=== PATIENT | female | born 1980 | race Caucasian/White ===

== ENCOUNTER → 2017-11-22 | Outpatient (CLI) | payer BC ==
[2017-11-22 09:59] LABS: ALBUMIN 3.7 GM/DL (3.2-5.2); ALBUMIN/GLOBULIN RATIO 1.06 (1.00-1.93); ALKALINE PHOSPHATASE 58 U/L (45-117); ALT/SGPT 19 U/L (12-78); ANION GAP 6 MEQ/L (8-16); AST/SGOT 21 U/L (7-37); BILIRUBIN,TOTAL 0.3 MG/DL (0.2-1.0); BLOOD UREA NITROGEN 12 MG/DL (7-18); CALCIUM LEVEL 8.7 MG/DL (8.5-10.1); CARBON DIOXIDE LEVEL 25 MEQ/L (21-32); CHLORIDE LEVEL 109 MEQ/L (98-107); CREATININE FOR GFR 0.65 MG/DL (0.55-1.02); FREE T4 0.98 NG/DL (0.76-1.46); GLOMERULAR FILTRATION RATE > 60.0 (>60); GLUCOSE, FASTING 89 MG/DL (70-100); POTASSIUM SERUM 4.5 MEQ/L (3.5-5.1); SODIUM LEVEL 140 MEQ/L (136-145); TOTAL PROTEIN 7.2 GM/DL (6.4-8.2)
[2017-11-22 10:11] LABS: ESTIMATED AVERAGE GLUCOSE 117 MG/DL (60-110); HEMOGLOBIN A1c 5.7 %
== END ==
LOC: M LAB 08:25
DX: E66.09 Other obesity due to excess calories (principal)
CPT/HCPCS: 84443

== ENCOUNTER 2018-02-01 09:12 | Emergency (ER) | payer BC ==
[2018-02-01] MEDS: METOCLOPRAMIDE 10 MG TAB PO (09:14)
[2018-02-01] MEDS: KETOROLAC 60 MG/2 ML VIAL (J1885) IM (09:15)
== END 2018-02-01 09:50 | disposition home or self-care (01) ==
LOC: M ED 09:12
DX: G43.909 Migraine, unspecified, not intractable, without status migrainosus (principal); F17.200 Nicotine dependence, unspecified, uncomplicated; Z79.899 Other long term (current) drug therapy; Z87.39 Personal history of other diseases of the musculoskeletal system and connective tissue; Z98.890 Other specified postprocedural states; Z88.1 Allergy status to other antibiotic agents
CPT/HCPCS: J1885

== ENCOUNTER → 2018-04-11 | Outpatient (CLI) | payer BC | LOC: M RAD 11:42 | DX: N60.81 Other benign mammary dysplasias of right breast (principal); N60.82 Other benign mammary dysplasias of left breast | CPT/HCPCS: 77066 ==

== ENCOUNTER → 2018-05-03 | Outpatient (CLI) | payer BC ==
[~2018-05-03] MED LIST: PROHANCE 279.3MG/ML 15ML VIAL (A9576) As Ordered
== END ==
LOC: M RAD 10:24
DX: N60.31 Fibrosclerosis of right breast (principal); N60.32 Fibrosclerosis of left breast; Z80.3 Family history of malignant neoplasm of breast
CPT/HCPCS: A9576

== ENCOUNTER → 2018-12-05 | Outpatient (REF) | payer BC ==
[~2018-12-05] MED LIST changes: +/AUGM875TA OR; +ACET500C OR; +COLA50CA OR; +IBUP800T OR; +KETO10TAB PO; +MYDA1CAP PO; +NEXI20CA OR; +PERC5TAB8 OR; -PROHANCE 279.3MG/ML 15ML VIAL (A9576) As Ordered; +REGL10TA6 PO; +[UNRECOGNIZED DRUG - OTHER]; +dulcolax PR
[2018-12-05 21:28] LABS: CHLAMYDIA DNA AMPLIFICATION NEGATIVE (NEGATIVE); GC DNA AMPLIFICATION NEGATIVE (NEGATIVE)
== END ==
LOC: M LAB REF 17:17
PROVIDERS: ATTEND Family Medicine
DX: N76.0 Acute vaginitis (principal)

== ENCOUNTER 2018-12-21 10:12 | Emergency (ER) | payer BC ==
[~2018-12-21] VITALS: Ht 154.9 cm; Wt 65.9 kg
[2018-12-21 10:12] VITALS: BP 129/89
--- NOTE | 2018-12-21 10:59 | REP ---
Right hand four views : There is no fracture or dislocation. Mineralization and joint spaces are normal. There are no calcifications or foreign bodies. Impression: Negative right hand. No boxer's fracture. Electronically Signed by Riley Gallo MD 12/21/2018 10:50 A
== END 2018-12-21 10:58 | disposition home or self-care (01) ==
LOC: M ED 10:12
DX: S60.221A Contusion of right hand, initial encounter (principal); W22.8XXA Striking against or struck by other objects, initial encounter; Y92.89 Other specified places as the place of occurrence of the external cause; Y93.89 Activity, other specified; Y99.9 Unspecified external cause status; Z79.899 Other long term (current) drug therapy; Z88.1 Allergy status to other antibiotic agents

== ENCOUNTER → 2019-01-08 | Outpatient (CLI) | payer BC ==
[2019-01-08 08:20] LABS: BASO # 0.1 10^3/uL (0.0-0.2); BASO % 0.9 % (0.0-1.0); EOS # 0.2 10^3/uL (0.0-0.50); EOS % 2.9 % (0.0-3.0); HEMATOCRIT 42.2 % (36.0-47.0); HEMOGLOBIN 13.8 g/dl (12.0-15.5); LYMPH # 1.7 10^3/uL (1.5-4.5); LYMPH % 22.6 % (24.0-44.0); MEAN CORPUSCULAR HGB CONC 32.7 g/dl (32.0-36.5); MEAN CORPUSCULAR VOLUME 88.7 fl (80.0-96.0); MONO # 0.7 10^3/uL (0.0-0.8); MONO % 8.8 % (0.0-5.0); NEUTROPHILS % 64.4 % (36.0-66.0); PLATELET COUNT, AUTOMATED 341 10^3/uL (150-450); RED BLOOD COUNT 4.76 10^6/uL (4.00-5.40); WHITE BLOOD COUNT 7.7 10^3/uL (4.0-10.0)
[2019-01-08 08:29] LABS: HEMOGLOBIN A1c 5.6 %
[2019-01-08 09:07] LABS: ALBUMIN 3.6 GM/DL (3.2-5.2); ALT/SGPT 12 U/L (12-78); BILIRUBIN,TOTAL 0.4 MG/DL (0.2-1.0); BLOOD UREA NITROGEN 7 MG/DL (7-18); CALCIUM LEVEL 8.6 MG/DL (8.5-10.1); CARBON DIOXIDE LEVEL 25 MEQ/L (21-32); CHLORIDE LEVEL 109 MEQ/L (98-107); CHOLESTEROL LEVEL 139 MG/DL (<200); CHOLESTEROL RISK RATIO 3.088 (<5); CREATININE FOR GFR 0.56 MG/DL (0.55-1.30); FREE T4 1.07 NG/DL (0.76-1.46); GLOMERULAR FILTRATION RATE > 60.0 (>60); GLUCOSE, FASTING 79 MG/DL (70-100); HDL CHOLESTEROL 45 MG/DL (>40); LDL CHOLESTEROL 60 MG/DL (<100); NON-HDL-C 94 MG/DL; POTASSIUM SERUM 4.2 MEQ/L (3.5-5.1); SODIUM LEVEL 141 MEQ/L (136-145); TOTAL PROTEIN 6.9 GM/DL (6.4-8.2); TRIGLYCERIDES LEVEL 171 MG/DL (<150)
== END ==
LOC: M LAB 07:26
PROVIDERS: ATTEND Family Medicine
DX: Z13.29 Encounter for screening for other suspected endocrine disorder (principal); Z13.220 Encounter for screening for lipoid disorders; Z13.0 Encounter for screening for diseases of the blood and blood-forming organs and certain disorders involving the immune mechanism

== ENCOUNTER 2019-02-21 19:13 | Emergency (ER) | payer BC ==
[~2019-02-21] VITALS: Ht 157.5 cm; Wt 69.1 kg
--- NOTE | 2019-02-21 20:43 | REPVR ---
EXAM: CT Head Without Contrast EXAM DATE/TIME: 02/21/2019 7:39 PM CLINICAL HISTORY: 38 years old, female; Signs and symptoms; Weakness, facial; Additional info: Neuro symptoms TECHNIQUE: Imaging protocol: Axial computed tomography images of the head/brain without contrast. Radiation optimization: All CT scans at this facility use at least one of these dose optimization techniques: automated exposure control; mA and/or kV adjustment per patient size (includes targeted exams where dose is matched to clinical indication); or iterative reconstruction. COMPARISON: Thyroid, ST head+neck US 09/21/2015 1:25 PM FINDINGS: Brain: Normal. No hemorrhage. No significant white matter disease. No edema. Ventricles: Normal. No ventriculomegaly. Bones/joints: Unremarkable. No acute fracture. Sinuses: Visualized sinuses are unremarkable. No acute sinusitis. Mastoid air cells: Visualized mastoid air cells are unremarkable. No mastoid effusion. Soft tissues: Unremarkable. IMPRESSION: No acute intracranial abnormality. Electronically signed by: Marva Mcdaniel On 02/21/2019 20:43:45 PM
[2019-02-21] MEDS ORDERED: traMADol 50 MG TAB PO ONE (21:45)
[2019-02-21 21:54] VITALS: BP 122/77
== END 2019-02-21 21:55 | disposition home or self-care (01) ==
LOC: M ED 19:13
DX: G43.909 Migraine, unspecified, not intractable, without status migrainosus (principal); F90.9 Attention-deficit hyperactivity disorder, unspecified type; Z79.899 Other long term (current) drug therapy; Z88.1 Allergy status to other antibiotic agents

== ENCOUNTER → 2019-05-15 | Outpatient (CLI) | payer BC ==
[~2019-05-15] MED LIST changes: +CLON0.5T8 PO; +SUMA50TA2 PO; +SUMA6KIT SC
== END ==
LOC: M SMT 14:01
PROVIDERS: ATTEND Internal Medicine Gastroenterology
DX: K58.0 Irritable bowel syndrome with diarrhea (principal)

== ENCOUNTER 2019-05-16 10:51 | Day surgery (SDC) | payer BC ==
[~2019-05-16] VITALS: Ht 154.9 cm; Wt 63.7 kg
[~2019-05-16 10:51] MED LIST changes: +NS 1,000 ML IV ONE
[2019-05-16] MEDS ORDERED: PROPOFOL 200 MG/20 ML VIAL As Ordered ONE (11:45)
[2019-05-16] MEDS ORDERED: LIDOCAINE 2% INJ 100 MG/5 ML SDV (FOR ANES.) As Ordered ONE (11:45)
--- NOTE | 2019-05-16 11:57 | ROOR ---
Patient Name: Dana Ellington Procedure Date: 05/16/2019 11:36 AM Date of : 1980 Age: 38 Room: [facility] Gender: Female Note Status: Finalized Procedure: Upper GI endoscopy Indications: Surveillance procedure, Surveillance for malignancy due to personal history of Diallo's esophagus, Diarrhea Providers: Ubaldo COBIAN MD Referring MD: Laura GUTHRIE DO Requesting Provider: Medicines: Monitored Anesthesia Care Complications: No immediate complications. Procedure: Pre-Anesthesia Assessment: - The heart rate, respiratory rate, oxygen saturations, blood pressure, adequacy of pulmonary ventilation, and response to care were monitored throughout the procedure. The Endoscope was introduced through the mouth, and advanced to the second part of duodenum. The upper GI endoscopy was accomplished without difficulty. The patient tolerated the procedure well. Findings: The Z-line was variable and was found 35 cm from the incisors. This was biopsied with a cold forceps for histology. The examined esophagus was normal. Small Hiatal Hernia. The entire examined stomach was normal. The examined duodenum was normal. Biopsies for histology were taken with a cold forceps for evaluation of celiac disease. Impression: - Normal esophagus. Z-line variable, 35 cm from the incisors. Biopsied. - Normal stomach with a small insignificant Hiatal Hernia. - Normal examined duodenum. Biopsied. Recommendation: - Telephone endoscopist for pathology results in 2 weeks. Ubaldo Cobian MD Ubaldo COBIAN MD 05/16/2019 11:57:19 AM Electronically signed by Ubaldo COBIAN MD Number of Addenda: 0 Note Initiated On: 05/16/2019 11:36 AM Estimated Blood Loss: Estimated blood loss: none.
--- NOTE | 2019-05-16 12:13 | ROOR ---
Patient Name: Dana Ellington Procedure Date: 05/16/2019 11:37 AM Date of : 1980 Age: 38 Room: [facility] Gender: Female Note Status: Finalized Procedure: Colonoscopy Indications: Generalized abdominal pain, Irritable bowel syndrome with diarrhea, Mixed irritable bowel syndrome, Diarrhea Providers: Ubaldo COBIAN MD Referring MD: Laura GUTHRIE DO Requesting Provider: Medicines: Monitored Anesthesia Care Complications: No immediate complications. Procedure: Pre-Anesthesia Assessment: - The heart rate, respiratory rate, oxygen saturations, blood pressure, adequacy of pulmonary ventilation, and response to care were monitored throughout the procedure. The Colonoscope was introduced through the anus and advanced to 10 cm into the ileum. The colonoscopy was performed without difficulty. The patient tolerated the procedure well. The quality of the bowel preparation was good. Findings: The perianal and digital rectal examinations were normal. A 4 mm polyp was found in the sigmoid colon. The polyp was sessile. The polyp was removed with a cold snare. Resection and retrieval were complete. The exam was otherwise normal throughout the examined colon. The terminal ileum appeared normal. Small Internal Hemorrhoids. Impression: - One 4 mm polyp in the sigmoid colon, removed with a cold snare. Resected and retrieved. - The colon is otherwise normal. - The examined portion of the ileum was normal. - Small Internal Hemorrhoids. Recommendation: - Continue present medications. - Await pathology results. - Telephone endoscopist for pathology results in 2 weeks. - If the pathology report reveals adenomatous tissue, then repeat the colonoscopy for surveillance in 5 years. Ubaldo Cobian MD Ubaldo COBIAN MD 05/16/2019 12:12:55 PM Electronically signed by Ubaldo COBIAN MD Number of Addenda: 0 Note Initiated On: 05/16/2019 11:37 AM Estimated Blood Loss: Estimated blood loss: none.
[2019-05-16 12:30] VITALS: BP 111/75
== END 2019-05-16 12:38 | disposition home or self-care (01) ==
LOC: M OPP 10:51
PROVIDERS: ATTEND Internal Medicine Gastroenterology
DX: D12.5 Benign neoplasm of sigmoid colon (principal); R10.84 Generalized abdominal pain; K58.0 Irritable bowel syndrome with diarrhea; K58.2 Mixed irritable bowel syndrome; R19.7 Diarrhea, unspecified; K22.8 Other specified diseases of esophagus; K22.70 Barrett's esophagus without dysplasia; K44.9 Diaphragmatic hernia without obstruction or gangrene; Z79.899 Other long term (current) drug therapy; Z88.0 Allergy status to penicillin; Z91.040 Latex allergy status

== ENCOUNTER → 2019-08-11 | Outpatient (CLI) | payer BC ==
[~2019-08-11] MED LIST changes: -NS 1,000 ML IV ONE
--- NOTE | 2019-08-11 13:23 | REP ---
Chest x-ray: Two views. History: Shortness of breath and cough . Comparison study: October 07, 2011 . Findings: The lungs are well inflated and free of infiltrate. The pleural angles are sharp. The heart size is normal. Pulmonary vasculature is not increased. No significant bony abnormality is seen. There are clips in the right upper quadrant of the abdomen. Nipple jewelry is noted. Impression: Negative chest x-ray. Electronically Signed by Elroy Chavarria MD 08/11/2019 01:14 P
== END ==
LOC: M RAD 13:01
PROVIDERS: ATTEND Emergency Medicine
DX: R06.02 Shortness of breath (principal)

== ENCOUNTER → 2019-11-12 | Outpatient (CLI) | payer BC ==
[~2019-11-12] MED LIST changes: +CLON0.5T2 PO; -CLON0.5T8 PO
[2019-11-12 09:14] LABS: ALBUMIN 3.7 GM/DL (3.2-5.2); ALT/SGPT 15 U/L (12-78); BILIRUBIN,TOTAL 0.5 MG/DL (0.2-1.0); BLOOD UREA NITROGEN 12 MG/DL (7-18); CALCIUM LEVEL 8.7 MG/DL (8.5-10.1); CARBON DIOXIDE LEVEL 26 MEQ/L (21-32); CHLORIDE LEVEL 107 MEQ/L (98-107); CREATININE FOR GFR 0.64 MG/DL (0.55-1.30); GLOMERULAR FILTRATION RATE > 60.0 (>60); GLUCOSE, FASTING 78 MG/DL (70-100); POTASSIUM SERUM 4.3 MEQ/L (3.5-5.1); SODIUM LEVEL 140 MEQ/L (136-145)
[2019-11-12 10:41] LABS: HEMOGLOBIN A1c 5.4 %
== END ==
LOC: M LAB 07:43
PROVIDERS: ATTEND Family Medicine
DX: R73.9 Hyperglycemia, unspecified (principal)

== ENCOUNTER → 2020-02-03 | Outpatient (CLI) | payer BC ==
[2020-02-03 11:01] LABS: HEMOGLOBIN A1c 5.4 %
[2020-02-03 11:11] LABS: ALT/SGPT 15 U/L (12-78); BILIRUBIN,TOTAL 0.7 MG/DL (0.2-1.0); BLOOD UREA NITROGEN 9 MG/DL (7-18); CALCIUM LEVEL 9.2 MG/DL (8.5-10.1); CARBON DIOXIDE LEVEL 26 MEQ/L (21-32); CHLORIDE LEVEL 106 MEQ/L (98-107); CREATININE FOR GFR 0.65 MG/DL (0.55-1.30); GLOMERULAR FILTRATION RATE > 60.0 (>60); GLUCOSE, FASTING 83 MG/DL (70-100); POTASSIUM SERUM 4.6 MEQ/L (3.5-5.1); SODIUM LEVEL 136 MEQ/L (136-145); TOTAL PROTEIN 7.5 GM/DL (6.4-8.2)
== END ==
LOC: M LAB 10:05
PROVIDERS: ATTEND Family Medicine
DX: R73.9 Hyperglycemia, unspecified (principal)

== ENCOUNTER → 2020-02-18 | Outpatient (REF) | payer BC | LOC: M LAB REF 16:39 | PROVIDERS: ATTEND Physician Assistant | DX: N39.0 Urinary tract infection, site not specified (principal) ==

== ENCOUNTER → 2020-04-02 | Outpatient (CLI) | payer BC | LOC: M LABSMTC 12:18 | PROVIDERS: ATTEND Family Medicine | DX: Z03.818 Encounter for observation for suspected exposure to other biological agents ruled out (principal); Z11.59 Encounter for screening for other viral diseases | CPT/HCPCS: 87486; 87581; 87633; 87798; C9803 ==

== ENCOUNTER → 2020-07-22 | Outpatient (CLI) | payer BC ==
[2020-07-22 10:13] LABS: BASO # 0.1 10^3/uL (0.0-0.2); EOS # 0.2 10^3/uL (0.0-0.5); EOS % 2.6 % (0.0-3.0); HEMATOCRIT 43.7 % (36.0-47.0); HEMOGLOBIN 14.2 g/dl (12.0-15.5); LYMPH # 1.5 10^3/uL (1.5-5.0); LYMPH % 25.5 % (24.0-44.0); MEAN CORPUSCULAR HGB CONC 32.5 g/dl (32.0-36.5); MEAN CORPUSCULAR VOLUME 92.4 fl (80.0-96.0); MONO # 0.6 10^3/uL (0.0-0.8); MONO % 10.1 % (0.0-5.0); NEUTROPHILS # 3.5 10^3/uL (1.5-8.5); NEUTROPHILS % 60.5 % (36.0-66.0); PLATELET COUNT, AUTOMATED 312 10^3/uL (150-450); RED BLOOD COUNT 4.73 10^6/uL (4.00-5.40); WHITE BLOOD COUNT 5.8 10^3/uL (4.0-10.0)
[2020-07-22 10:44] LABS: ALBUMIN 3.9 GM/DL (3.2-5.2); ALT/SGPT 24 U/L (12-78); BILIRUBIN,TOTAL 0.4 MG/DL (0.2-1.0); BLOOD UREA NITROGEN 18 MG/DL (7-18); CARBON DIOXIDE LEVEL 25 MEQ/L (21-32); CHLORIDE LEVEL 107 MEQ/L (98-107); CREATININE FOR GFR 0.77 MG/DL (0.55-1.30); FERRITIN 120 NG/ML (8-252); FREE T4 1.21 NG/DL (0.76-1.46); GLOMERULAR FILTRATION RATE > 60.0 (>60); GLUCOSE, FASTING 104 MG/DL (70-100); IRON (FE) 101 UG/DL (50-170); MAGNESIUM LEVEL 2.3 MG/DL (1.8-2.4); PERCENT SATURATION 24.3 % (13.2-45.0); POTASSIUM SERUM 4.3 MEQ/L (3.5-5.1); SODIUM LEVEL 138 MEQ/L (136-145); TOTAL IRON BINDING CAPACITY 416 UG/DL (250-450); TOTAL PROTEIN 7.9 GM/DL (6.4-8.2)
[2020-07-22 10:45] LABS: TOTAL 25(OH) VITAMIN D 27.6 NG/ML (30.0-100.0); VITAMIN B12 LEVEL 404 PG/ML
[2020-07-22 10:46] LABS: FOLATE 14.9 NG/ML
== END ==
LOC: M LAB 09:28
PROVIDERS: ATTEND Physician Assistant
DX: K58.0 Irritable bowel syndrome with diarrhea (principal); Z13.29 Encounter for screening for other suspected endocrine disorder

== ENCOUNTER → 2020-07-30 | Outpatient (REF) | LOC: M EMP 07:50 | PROVIDERS: ATTEND Family Medicine | DX: Z00.00 Encounter for general adult medical examination without abnormal findings (principal) ==

== ENCOUNTER → 2020-08-14 | Outpatient (CLI) | payer BC | LOC: M LABSMTC 08:19 | PROVIDERS: ATTEND Pediatrics | DX: Z20.828 Contact with and (suspected) exposure to other viral communicable diseases (principal) ==

== ENCOUNTER → 2020-10-18 | Outpatient (CLI) | payer BC ==
--- NOTE | 2020-10-18 16:54 | REPMRS ---
Patient History The patient states she had a clinical breast exam in 07/2020 Family history of breast cancer at age 40 in maternal grandmother, endometrial cancer at age 28 in mother, ovarian cancer at age 44 in mother, breast cancer at age 44 in sister. 3D TOMOSYNTHESIS WAS PERFORMED. Jackelyna breast density b. Digital Woman Screen Mammo: October 18, 2020 - Exam #: [id number] Bilateral CC and MLO view(s) were taken. Technologist: Sindy Berman, Technologist Prior study comparison: April 11, 2018, digital mammo diagnostic bilateral, performed at [facility]. October 01, 2013, digital mammo diagnostic bilateral, performed at [facility]. FINDINGS: There are scattered fibroglandular densities. There has been no change in the appearance of the mammogram from the prior studies. There is a mild amount of residual fibroglandular tissue which is fairly symmetric. There is no interval development of dominant mass, architectural distortion, or clustered microcalcification suggestive of malignancy. Assessment: BI-RADS/ACR category 1 mammogram. Negative Mammogram. Recommendation Routine screening mammogram in 1 year (for women over age 40). This mammogram was interpreted with the aid of an FDA-approved computer-aided dectection system. THE LIFETIME RISK OF BREAST CANCER IS 34.8%, THEREFORE SUPPLEMENTAL SCREENING MRI OF THE BREASTS IS RECOMMENDED IN 6 MONTHS. Electronically Signed By: Riley Bailey MD 10/18/20 [id number]
== END ==
LOC: M WHC 16:12
PROVIDERS: ATTEND Obstetrics & Gynecology
DX: Z12.31 Encounter for screening mammogram for malignant neoplasm of breast (principal)

== ENCOUNTER → 2020-11-02 | Outpatient (REF) | payer SELFPAY ==
[~2020-11-02] MED LIST changes: +CHAN1PAK13; +CLON1TAB8; +DULO1CAP6; +ESOM40CA35; +MYDA1CAP; +SUCR1ORA2
== END ==
LOC: EDSTATUS 14:05 → M LABSMTC 14:24
PROVIDERS: ATTEND Family Medicine
DX: Z20.822 Contact with and (suspected) exposure to COVID-19 (principal)

== ENCOUNTER 2020-11-25 03:02 | Emergency (ER) | payer BC, SELFPAY ==
[~2020-11-25] VITALS: Ht 154.9 cm; Wt 74.4 kg
[~2020-11-25 03:02] MED LIST changes: -CHAN1PAK13; -CLON1TAB8; -DULO1CAP6; -ESOM40CA35; -MYDA1CAP; -SUCR1ORA2
[2020-11-25 03:03] VITALS: BP 135/97
--- OUTSIDE RECORDS SUMMARY | 2020-11-25 03:11 | CCD | Continuity of Care Document ---
Author Author Dana GOLDBERG Organization [place] [address] Phone [phone] Care Team Providers Care Cash Clerk Name Role Phone Laura Acevedo D.O. AUTM [phone] Mendel Pearson M.D. AUTM [phone] Ubaldo Kay M.D, Facs FACPh AUTM Problems Active Problems Provider Date Attention deficit hyperactivity disorder, predominantl y inattentive type Laura Acevedo D.O. Onset: 09/21/2015 Generalized anxiety disorder Laura Acevedo D.O. Onse t: 09/21/2015 Tachycardia Laura Acevedo D.O. Onset: 2014 Pure hypercholesterolemia Laura Acevedo D.O. Onset: 09/21/2015 Non-toxic nodular goiter Laura Acevedo D.O. Onset: 1 11/21/2014 Tobacco user Laura Acevedo D.O. Onset: 2014 Palpitations Laura Acevedo D.O. Onset: 2014 Insomnia JOSELYN Carpio Onset: 11/20/2016 Migraine without aura, not refractory JOSELYN Carpio O nset: 05/21/2017 Chronic migraine without aura JOSELYN Delgado Onset: Irritable bowel syndrome with diarrhea JOSELYN Delgado O nset: 07/22/2020 Gastro-esophageal reflux disease with esophagitis JOSELYN Guillermo Onset: 07/22/2020 Mild recurrent major depression JOSELYN Delgado Onset: 0 05/06/2020 Social History Type Date Description Comments Sex Unknown Tobacco Use Start: Unknown Light tobacco smoker (10 or fewe r cigarettes/day) 5/day Tobacco Use Start: Unknown End: Unknown Quit only while Smoking Status Reviewed: 12/18/19 Quit only while pr egnant ETOH Use Denies alcohol use Tobacco Use Start: Unknown Light tobacco smoker (10 or fewe r cigarettes/day) 5/day Recreational Drug Use Denies Drug Use Sun Exposure Uses sunscreen Seat Belt/Car Seat Always uses seat belt Allergies, Adverse Reactions, Alerts Active Allergies Reaction Severity Comments Date Erythromycin Nausea and Vomiting, Urticaria 09/21/2015 Medications Active Medications SIG Qnty Indications Ordering Provide r Date Mydayis 37.5mg Caps ER 24HR 1 by mouth every day. Code B 90caps F90.0 Sofy Bess.O. Chantix Continuing Month Horacio 1mg T ablets 1 tab by mouth twice daily. 56tabs Sofy Bess.O. 11/09/2020 Carafate 1GM/10ML Suspension 10 milliliters by mouth every 12 hours 840ml Sofy Barry.O. 11/09/2020 GI Cocktail (Maalox, Dontatol, Lidocaine) 1:1:1 ratio of medication. Take 15 mL by mouth twice a day as needed 120mL Sofy Corea.O. 11/09/2020 Levocetirizine Dihydrochloride 5mg Tablets take one tablet by mouth at bedtime 90tabs J30.9 Sofy Bess.O. 08/16/2020 Flonase Allergy Relief 50mcg/Act Suspension two sprays in each nostril once daily 18.200ml J30.9 Sofy Bess.O. 08/16/[address] 1 by mouth twice a day for a month and then return to once a day an empty stomach 120caps K21.0 Sofy Bess.O. 07/22/2020 Trazodone HCL 100mg Tablets take 1 tablets by mouth once daily at bedtime 90tabs F33.0 Marissa CoreaORyanne 07/22/2020 Zofran 4mg Tablets 1-2 tablets by mouth every 6 hours as needed for nausea 45tabs K21.0 Marissa OscarORyanne 05/28/2020 Ajovy 225mg/1.5ML Solution Auto-In ject one injector once a month in subcutaneous tissue 4.5ml G43.009 Marissa BessORyanne 04/20/[address] Part 1 by mouth every day 90caps F41.1 Marissa BessORyanne 03/01 Klonopin 1mg Tablets 1 tablet by mouth twice a day as needed 60tabs F51.04 Marissa BessORyanne 07/07/2019 Sumatriptan Succinate Refill 6mg/0.5ML Solution Cartridge administer half a milliliters sq 2 times per day at least 1 hour between doses as needed for migraine headache 3ml G43.009 Marissa BessORyanne 01/30/2018 Sumatriptan Succinate 50mg Tablets take one tablet at the onset of symptoms, repeat 2 hours if not improved. mdd 2. patient gets 6 headaches/month. 12tabs G43.009 Marissa WalkerORyanne 05/21/2017 History Medications Diflucan 200mg Tablets take one tablet after finishing antibiotics and two days later if symptoms persist 2tabs Marissa BessORyanne 08/19/2020 - 11/09/2020 Bactrim DS 800-160mg Tablets take one tablet by mouth every 12 hours for ten days 20tabs A49.02 Marissa BessO. 08/16/2020 - 11/09/2020 Mupirocin 2% Ointment apply ointment around left arm and lower back twice daily for 10 days. 22gm A49. 02 Marissa BessORyanne 08/16/2020 - 11/09/2020 Mydayis 25mg Caps ER 24HR one tablet by mouth daily istop#: [id number] Code B 90caps F90.0 Marissa KcORyanne 07/22/2020 - 11/09/2020 Carafate 1GM/10ML Suspension 10 milliliters by mouth every 8 hours 840ml K21.0 Marissa OscarO. 05/28/2020 - 07/22/[address] 1 by mouth every 12 hours for one month and then once a day on an empty stomach 180caps K21.0 Sofy Bess.O. 05/28/2020 - 07/22/2020 Medications Administered in Office Medication SIG Qnty Indications Ordering Provider Date Injection Promethazine Hci To 50 MG Injection JOSELYN Atwood 2017 Injection Ketorolac Tromethamine Per 15 MG (Toradol) Injection JOSELYN Toth 01/30/2018 Therapeutic, Prophylactic Or Diagnostic Injection Subq/Im Injection JOSELYN Toth 01/30/2018 Immunizations Description No Information Available Vital Signs Date Vital Result Comment 11/09/2020 10:55am BP Systolic 124 mmHg BP Diastolic 90 mmHg Height 62.25 inches 5'2.25" Weight 164.00 lb BMI (Body Mass Index) 29.8 kg/m2 Heart Rate 94 /min Respiratory Rate 20 /min Body Temperature 97.3 F O2 % BldC Oximetry 99 % Molino Body Weight 110 lb 08/16/2020 8:55am BP Systolic 118 mmHg BP Diastolic 68 mmHg Height 62.25 inches 5'2.25" Weight 152.25 lb BMI (Body Mass Index) 27.6 kg/m2 Heart Rate 113 /min Respiratory Rate 18 /min Body Temperature 98.4 F O2 % BldC Oximetry 99 % Molino Body Weight 110 lb Results Test Acquired Date Facility Test Result H/L Range Note CBC With Differential 07/22/[address] [address] [phone] White Blood Count 5.8 10 Normal 4.0-10.0 Red Blood Count 4.73 10 Normal 4.00-5.40 Hemoglobin 14.2 g/dL Normal 12.0-15.5 Hematocrit 43.7 % Normal 36.0-47.0 Mean Corpuscular Volume 92.4 fl Normal 80.0-96.0 Mean Corpuscular Hemoglobin 30.0 pg Normal 27.0-33.0 Mean Corpuscular HGB Conc 32.5 g/dL Normal 32.0-36.5 Red Cell Distribution Width 12.4 % Normal 11.5-14.5 Platelet Count, Automated 312 10 Normal 150-450 Neutrophils % 60.5 % Normal 36.0-66.0 Lymph % 25.5 % Normal 24.0-44.0 Chase % 10.1 % High 0.0-5.0 Eos % 2.6 % Normal 0.0-3.0 Baso % 1.0 % Normal 0.0-1.0 Immature Granulocyte % 0.3 % Normal 0-3.0 Nucleated Red Blood Cell % 0.0 % Normal 0-0 Neutrophils # 3.5 10 Normal 1.5-8.5 Lymph # 1.5 10 Normal 1.5-5.0 Chase # 0.6 10 Normal 0.0-0.8 Eos # 0.2 10 Normal 0.0-0.5 Baso # 0.1 10 Normal 0.0-0.2 Comprehensive Metabolic Profil 07/22/[address] [address] [phone] Glucose, Fasting 104 mg/dL High 70-100 Blood Urea Nitrogen 18 mg/dL Normal 7-18 Creatinine For GFR 0.77 mg/dL Normal 0.55-1.30 Glomerular Filtration Rate > 60.0 Normal >60 1 Sodium Level 138 mEq/L Normal 136-145 Potassium Serum 4.3 mEq/L Normal 3.5-5.1 Chloride Level 107 mEq/L Normal 98-107 Carbon Dioxide Level 25 mEq/L Normal 21-32 Anion Gap 6 mEq/L Low 8-16 Calcium Level 9.0 mg/dL Normal 8.5-10.1 Ast/Sgot 9 U/L Normal 7-37 Alt/SGPT 24 U/L Normal 12-78 Alkaline Phosphatase 56 U/L Normal 45-117 Bilirubin,Total 0.4 mg/dL Normal 0.2-1.0 Total Protein 7.9 GM/DL Normal 6.4-8.2 Albumin 3.9 GM/DL Normal 3.2-5.2 Albumin/Globulin Ratio 1.0 Low 1.2-2.2 Laboratory test finding 07/22/[address] [address] [phone] Ferritin 120 NG/ML Normal 8-252 Total Iron Binding Capacit 07/22/2020 [facility] ical center [address] [place] [address] [phone] Iron (Fe) 101 g/dL Normal 50-170 Total Iron Binding Capacity 416 g/dL Normal 250-450 Percent Saturation 24.3 % Normal 13.2-45.0 Vitamin B12 & Folate 07/22/2020 [facility] enter [address] [place] [address] [phone] Vitamin B12 Level 404 pg/mL Normal 2 Folate 14.9 NG/ML Normal 3 Laboratory test finding 07/22/[address] [address] [phone] Magnesium Level 2.3 mg/dL Normal 1.8-2.4 FT4&TSH Panel 07/22/2020 [facility] ce nter [address] [place] [address] [phone] Thyroid Stimulating Hormone 2.310 uIU/ML Normal 0. 358-3.740 Free T4 1.21 ng/dL Normal 0.76-1.46 Laboratory test finding 07/22/[address] [address] [phone] Total 25(Oh) Vitamin D 27.6 NG/ML Low 30.0-100. 0 1 Units are mL/min/1.73 m2 Chronic Kidney Disease Staging per NKF: Stage I & II GFR >=60 Normal to Mildly Decreased Stage III GFR 30-59 Moderately Decreased Stage IV GFR 15-29 Severely Decreased Stage V GFR <15 Very Little GFR Left ESRD GFR <15 on ARTIFICIAL FLY TIER 2 VITAMIN B12 NORMAL RANGE NORMAL 247 - 911 PG/ML INDETERMINATE 211 - 246 PG/ML DEFICIENT LESS THAN 211 PG/ML 3 FOLATE NORMAL RANGE NORMAL GREATER THAN 5.4 NG/ML INDETERMINATE 3.4-5.4 NG/ML DEFICIENT LESS THAN 3.4 NG/ML Procedures Date Code Description Status 07/27/2020 95472 Omt 7-8 Body Regions Completed Medical Devices Description No Information Available Encounters Type Date Location Provider Dx Diagnosis Office Visit 11/09/2020 10:40a [facility] JOSELYN Delgado F90.0 Attn-defct hyperactivity dis order, predom inattentive type K21.00 Gastro-esophageal reflux dis with esophagitis, without bleed Office Visit 08/16/2020 8:45a [facility] JOSELYN Delgado A49.02 Methicillin resis staph infe ction, [facility] J30.9 Allergic rhinitis, unspecifi ed Office Visit 07/27/2020 2:40p [facility] Laura Acevedo D.O. M54.5 Low back pain M99.00 Segmental and somatic dysfun ction of head region M99.01 Segmental and somatic dysfun ction of cervical region M99.02 Segmental and somatic dysfun ction of thoracic region M99.03 Segmental and somatic dysfun ction of lumbar region M99.06 Segmental and somatic dysfun ction of lower extremity M99.05 Segmental and somatic dysfun ction of pelvic region M99.04 Segmental and somatic dysfun ction of sacral region M54.6 Pain in thoracic spine M25.552 Pain in left hip M25.551 Pain in right hip M54.2 Cervicalgia Office Visit 07/22/2020 8:30a [facility] JOSELYN Delgado F33.0 Major depressive disorder, r ecurrent, mild F90.0 Attn-defct hyperactivity dis order, predom inattentive type K21.0 Gastro-esophageal reflux dis ease with esophagitis K58.0 Irritable bowel syndrome wit h diarrhea G43.709 Chronic migraine w/o aura, n ot intractable, w/o stat migr G47.00 Insomnia, unspecified Office Visit 05/28/2020 11:30a [facility] JOSELYN Delgado K21.0 Gastro-esophageal reflux dis ease with esophagitis Assessments Date Code Description Provider 11/09/2020 F90.0 Attention-deficit hy peractivity disorder, predominantly inattentive type JOSELYN Delgado 11/09/2020 K21.00 Gastro-esophageal re flux disease with esophagitis, without bleeding JOSELYN Delgado 08/16/2020 A49.02 Methicillin resistan t Staphylococcus aureus infection, unspecified site JOSELYN Delgado 08/16/2020 J30.9 Allergic rhinitis, unspecified M JOSELYN Odom 07/27/2020 M54.5 Low back pain Laura Malcolm-Leon rber, D.O. 07/27/2020 M99.00 Segmental and somatic dysfunctio n of head region Laura Gold-Olegario, D.O. 07/27/2020 M99.01 Segmental and somatic dysfunctio n of cervical region Laura Gold-Olegario, D.O. 07/27/2020 M99.02 Segmental and somatic dysfunctio n of thoracic region Laura Gold-Olegario, D.O. 07/27/2020 M99.03 Segmental and somatic dysfunctio n of lumbar region Laura Gold-Olegario, D.O. 07/27/2020 M99.06 Segmental and somatic dysfunctio n of lower extremity Laura Gold-Olegario, D.O. 07/27/2020 M99.05 Segmental and somatic dysfunctio n of pelvic region Laura Gold-Olegario, D.O. 07/27/2020 M99.04 Segmental and somatic dysfunctio n of sacral region Laura Gold-Olegario, D.O. 07/27/2020 M54.6 Pain in thoracic spine Laura Steffen eano-Olegario, D.O. 07/27/2020 M25.552 Pain in left hip Laura Gold-S urber, D.O. 07/27/2020 M25.551 Pain in right hip Laura Gold- Olegario, D.O. 07/27/2020 M54.2 Cervicalgia Laura Malcolm-Leon rber, D.O. 07/22/2020 F33.0 Major depressive disorder, recur rent, mild JOSELYN Delgado 07/22/2020 F90.0 Attention-deficit hy peractivity disorder, predominantly inattentive type JOSELYN Delgado 07/22/2020 K21.0 Gastro-esophageal reflux disease with esophagitis JOSELYN Delgado 07/22/2020 K58.0 Irritable bowel syndrome with di arrhea JOSELYN Delgado 07/22/2020 G43.709 Chronic migraine wit hout aura, not intractable, without status migrainosus JOSELYN Delgado 07/22/2020 G47.00 Insomnia, unspecified JOSELYN Guillermo 05/28/2020 K21.0 Gastro-esophageal reflux disease with esophagitis JOSELYN Delgado Plan of Treatment Future Appointment(s):* 12/13/2020 3:40 pm - JOSELYN Delgado at [facility] 11/09/2020 - JOSELYN Delgado* F90.0 Attention-deficit hyperactivity disorder, predominantly inattentive type* New Medication:* Mydayis 37.5 mg - 1 by mouth every day. Code B * Comments:* We will increase your Mydayis to 37.5 mg to see if this helps with your symptoms. * K21.00 Gastro-esophageal reflux disease with esophagitis, without bleeding* Comments:* Use GI cocktail sparingly. Start Nexium 40 mg twice a day and Carafate for one month and then continue with Nexium once a day. Functional Status Description No Information Available Mental Status Description No Information Available Referrals Refer to Reason for Referral Status Appt Date Ubaldo Kay M.D Facs, FACPh, Rpvi Bilateral Varico se and spider veins with associated LE pain. Please evaluate and treat. thank you [facility] [address] [place] [id number] [phone]
--- OUTSIDE RECORDS SUMMARY | 2020-11-25 03:11 | CCD | Continuity of Care Document ---
Author Author Dana GOLDBERG Organization [place] [address] Phone [phone] Care Team Providers Care Corrugated Box Machine Operator Name Role Phone Laura Acevedo D.O. AUTM [phone] Mendel Pearson M.D. AUTM [phone] Ubaldo Kay M.D, Facs FACPh AUTM Problems [...] 12 hours for ten days 20tabs A49.02 Marsisa BessO. 08/16/2020 - 11/09/2020 Mupirocin 2% Ointment apply ointment around left arm and lower back twice daily for 10 days. 22gm A49. 02 Marissa BessORyanne 08/16/2020 - 11/09/2020 Mydayis 25mg Caps ER 24HR one tablet by mouth daily istop#: [id number] Code B 90caps F90.0 Marissa KcORyanne 07/22/2020 [...] F O2 % BldC Oximetry 99 % [place] Body Weight 110 lb 08/16/2020 8:55am BP Systolic 118 mmHg BP Diastolic 68 mmHg Height 62.25 inches 5'2.25" Weight 152.25 lb BMI (Body Mass Index) 27.6 kg/m2 Heart Rate 113 /min Respiratory Rate 18 /min Body Temperature 98.4 F O2 % BldC Oximetry 99 % [place] Body Weight 110 lb Results Test Acquired Date Facility Test Result H/L Range Note CBC With Differential 07/22/[address] [address] [phone] White Blood Count 5.8 10 Normal 4.0-10.0 [...] 36.0-66.0 Lymph % 25.5 % Normal 24.0-44.0 [place] % 10.1 % High 0.0-5.0 Eos % 2.6 % Normal 0.0-3.0 Baso % 1.0 % Normal 0.0-1.0 Immature Granulocyte % 0.3 % Normal 0-3.0 Nucleated Red Blood Cell % 0.0 % Normal 0-0 Neutrophils # 3.5 10 Normal 1.5-8.5 Lymph # 1.5 10 Normal 1.5-5.0 [place] # 0.6 10 Normal 0.0-0.8 Eos # 0.2 10 Normal 0.0-0.5 Baso # 0.1 10 Normal 0.0-0.2 Comprehensive Metabolic Profil 07/22/[address] [address] [phone] Glucose, Fasting 104 mg/dL High 70-100 Blood [...] 1.0 Low 1.2-2.2 Laboratory test finding 07/22/[address] [address] [phone] Ferritin 120 NG/ML Normal 8-252 Total Iron Binding Capacit 07/22/2020 [facility] [address] [place] [address] [phone] Iron (Fe) 101 g/dL Normal 50-170 Total Iron Binding Capacity 416 g/dL Normal 250-450 Percent Saturation 24.3 % Normal 13.2-45.0 Vitamin B12 & Folate 07/22/2020 [facility] enter [address] [place] [address] [phone] Vitamin B12 Level 404 pg/mL Normal 2 Folate 14.9 NG/ML Normal 3 Laboratory test finding 07/22/[address] [address] [phone] Magnesium Level 2.3 mg/dL Normal 1.8-2.4 FT4&TSH Panel 07/22/2020 [facility] ce nter [address] [place] [address] [phone] Thyroid Stimulating Hormone 2.310 uIU/ML Normal 0. 358-3.740 Free T4 1.21 ng/dL Normal 0.76-1.46 Laboratory test finding 07/22/[address] [address] [phone] Total 25(Oh) Vitamin D 27.6 NG/ML Low 30.0-100. 0 1 Units are mL/min/1.73 m2 Chronic Kidney Disease Staging per NKF: Stage I & II GFR >=60 Normal to Mildly Decreased Stage III GFR 30-59 Moderately Decreased Stage IV GFR 15-29 Severely Decreased Stage V GFR <15 Very Little GFR Left ESRD GFR <15 on OUTSIDE DEALER SALES REPRESENTATIVE 2 VITAMIN B12 NORMAL RANGE NORMAL 247 - 911 PG/ML INDETERMINATE 211 - 246 PG/ML DEFICIENT LESS THAN 211 PG/ML 3 FOLATE NORMAL RANGE NORMAL GREATER THAN 5.4 NG/ML INDETERMINATE 3.4-5.4 NG/ML DEFICIENT LESS THAN 3.4 NG/ML Procedures Date Code Description Status 07/27/2020 425[address] Omt 7-8 Body Regions Completed Medical Devices Description No Information Available Encounters Type Date Location Provider Dx Diagnosis Office Visit 08/16/2020 8:45a [facility] JOSELYN Delgado A49.02 Methicillin resis staph infe ction, unsp site J30.9 Allergic rhinitis, unspecifi ed Office Visit 07/27/2020 2:40p [facility] Marissa BessORyanne M54.5 Low back pain M99.00 Segmental and [...] hip M54.2 Cervicalgia Office Visit 07/22/2020 8:30a 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 JOSELYN Delgado K21.0 Gastro-esophageal reflux dis ease with esophagitis Assessments Date Code Description Provider 08/16/2020 A49.02 Methicillin resistan t Staphylococcus aureus infection, unspecified site JOSELYN Delgado 08/16/2020 J30.9 Allergic rhinitis, unspecified M JOSELYN Odom 07/27/2020 M54.5 Low back pain Sofy Walker.ORyanne 07/27/2020 M99.00 Segmental and somatic dysfunctio n of head region Marissa BessORyanne 07/27/2020 M99.01 Segmental and somatic dysfunctio n of cervical region Laura Acevedo, D.O. 07/27/2020 M99.02 Segmental and somatic dysfunctio n of thoracic region Laura Kenyonber, D.O. 07/27/2020 M99.03 Segmental and somatic dysfunctio n of lumbar region Laura Kenyonber, D.O. 07/27/2020 M99.06 Segmental and somatic dysfunctio n of lower extremity Laura DelacruzOlegario, D.O. 07/27/2020 M99.05 Segmental and somatic dysfunctio n of pelvic region Laura DealcruzOlegario, D.O. 07/27/2020 M99.04 Segmental and somatic dysfunctio n of sacral region Laura Kenyonber, D.O. 07/27/2020 M54.6 Pain in thoracic spine Lauramonico Aranaber, D.O. 07/27/2020 M25.552 Pain in left hip Laura armendarizdayo, D.O. 07/27/2020 M25.551 Pain in right hip Lauramonico Melvin, D.O. 07/27/2020 M54.2 Cervicalgia Laura Jean monika, D.O. 07/22/2020 F33.0 Major depressive disorder, recur [...] 12/13/2020 3:40 pm - JOSELYN Delgado at [facility] Functional Status Description No Information Available Mental Status Description No Information Available Referrals Refer to Reason for Referral Status Appt Date Ubaldo Kay M.D Facs, FACPh, Rpvi Bilateral Varico se and spider veins with associated LE pain. Please evaluate and treat. thank you Sent [facility] [address] [place] [address] [phone]
--- OUTSIDE RECORDS SUMMARY | 2020-11-25 03:12 | CCD ---
Author Author [facility] Organization [facility] Address Unknown Phone Unavailable Care Team Providers Care Electric Cell Tender Name Role Phone DEEPIKA RODRIGUEZ Unavailable Unavailable Elizabeth BURNETT Unavailable Unavailable Elizabeth BURNETT Unavailable Unavailable Elizabeth BURNETT Unavailable Unavailable Elizabeth BURNETT Unavailable Unavailable Elizabeth BURNETT Unavailable Unavailable Elizabeth BURNTET Unavailable Unavailable Elizabeth BURNETT Unavailable Unavailable Elizabeth BURNETT Unavailable Unavailable Elizabeth BURNETT Unavailable Unavailable Elizabeth BURNETT Unavailable Unavailable BURNETT, J TISHA PA Unavailable Unavailable BURNETT, J TISHA PA Unavailable Unavailable BURNETT, J TISHA PA Unavailable Unavailable BURNETT, J TISHA PA Unavailable Unavailable BURNETT, J TISHA PA Unavailable Unavailable BURNETT, J TISHA PA Unavailable Unavailable BURNETT, J TISHA PA Unavailable Unavailable BURNETT, J TISHA PA Unavailable Unavailable BURNETT, J TISHA PA Unavailable Unavailable BURNETT, J TISHA PA Unavailable Unavailable BURNETT, J TISHA PA Unavailable Unavailable BURNETT, J TISHA PA Unavailable Unavailable BURNETT, J TISHA PA Unavailable Unavailable BURNETT, J TISHA PA Unavailable Unavailable BURNETT, J TISHA PA Unavailable Unavailable BURNETT, J TISHA PA Unavailable Unavailable BURNETT, J TISHA PA Unavailable Unavailable MARILIA-MICHELLE, MIC DO Unavailable Unavailable MARILIA-MICHELLE, MIC DO Unavailable Unavailable MARILIA-MICHELLE, MIC DO Unavailable Unavailable MARILIA-MICHELLE, MIC DO Unavailable Unavailable MARILIA-MICHELLE, MIC DO Unavailable Unavailable MARILIA-MICHELLE, MIC DO Unavailable Unavailable MARILIA-MICHELLE, MIC DO Unavailable Unavailable MARILIA-MICHELLE, MIC DO Unavailable Unavailable MARILIA-MICHELLE, MIC DO Unavailable Unavailable MARILIA-MICHELLE, MIC DO Unavailable Unavailable MARILIA-MICHELLE, MIC DO Unavailable Unavailable MARILIA-MICHELLE, MIC DO Unavailable Unavailable MARILIA-MICHELLE, MIC DO Unavailable Unavailable MARILIA-MICHELLE, MIC DO Unavailable Unavailable MARILIA-MICHELLE, MIC DO Unavailable Unavailable MARILIA-MICHELLE, MIC DO Unavailable Unavailable MARILIA-MICHELLE, MIC DO Unavailable Unavailable MARILIA-MICHELLE, MIC DO Unavailable Unavailable MARILIA-MICHELLE, MIC DO Unavailable Unavailable MARILIA-MICHELLE, MIC DO Unavailable Unavailable MARILIA-MICHELLE, MIC DO Unavailable Unavailable MARILIA-MICHELLE, MIC DO Unavailable Unavailable MARILIA-MICHELLE, MIC DO Unavailable Unavailable MARILIA-MICHELLE, MIC DO Unavailable Unavailable MARILIA-MICHELLE, MIC DO Unavailable Unavailable MARILIA-MICHELLE, MIC DO Unavailable Unavailable MARILIA-MICHELLE, MIC DO Unavailable Unavailable MARILIA-MICHELLE, MIC DO Unavailable Unavailable MARILIA-MICHELLE, MIC DO Unavailable Unavailable MARILIA-MICHELLE, MIC DO Unavailable Unavailable MARILIA-MICHELLE, MIC DO Unavailable Unavailable MARILIA-MICHELLE, MIC DO Unavailable Unavailable MARILIA-MICHELLE, MIC DO Unavailable Unavailable MARILIA-MICHELLE, MIC DO Unavailable Unavailable MARILIA-MICHELLE, MIC DO Unavailable Unavailable MARILIA-MICHELLE, MIC DO Unavailable Unavailable MARILIA-MICHELLE, MIC DO Unavailable Unavailable MARILIA-MICHELLE, MIC DO Unavailable Unavailable MARILIA-MICHELLE, MIC DO Unavailable Unavailable MARILIA-MICHELLE, MIC DO Unavailable Unavailable MARILIA-MICHELLE, MIC DO Unavailable Unavailable MARILIA-MICHELLE, MIC DO Unavailable Unavailable MARILIA-MICHELLE, MIC DO Unavailable Unavailable MARILIA-MICHELLE, MIC DO Unavailable Unavailable MARILIA-MICHELLE, MIC DO Unavailable Unavailable MARILIA-MICHELLE, MIC DO Unavailable Unavailable MARILIA-MICHELLE, MIC DO Unavailable Unavailable MARILIA-MICHELLE, MIC DO Unavailable Unavailable MARILIA-MICHELLE, MIC DO Unavailable Unavailable MARILIA-MICHELLE, MIC DO Unavailable Unavailable MARILIA-MICHELLE, MIC DO Unavailable Unavailable MARILIA-MICHELLE, MIC DO Unavailable Unavailable MARILIA-MICHELLE, MIC DO Unavailable Unavailable MARILIA-MICHELLE, MIC DO Unavailable Unavailable MARILIA-MICHELLE, MCI DO Unavailable Unavailable MARILIA-MICHELLE, MIC DO Unavailable Unavailable MARILIA-MICHELLE, MIC DO Unavailable Unavailable MARILIA-MICHELLE, MIC DO Unavailable Unavailable MARILIA-MICHELLE, MIC DO Unavailable Unavailable MARILIA-MICHELLE, MIC DO Unavailable Unavailable MARILIA-MICHELLE, MIC DO Unavailable Unavailable MARILIA-MICHELLE, MIC DO Unavailable Unavailable MARILIA-MICHELLE, MIC DO Unavailable Unavailable MARILIA-MICHELLE, MIC DO Unavailable Unavailable MARILIA-MICHELLE, MIC DO Unavailable Unavailable MARILIA-MICHELLE, MIC DO Unavailable Unavailable MARILIA-MICHELLE, MIC DO Unavailable Unavailable MARILIA-MICHELLE, MIC DO Unavailable Unavailable MARILIA-MICHELLE, MIC DO Unavailable Unavailable MARILIA-MICHELLE, MIC DO Unavailable Unavailable MARILIA-MICHELLE, MIC DO Unavailable Unavailable MARILIA-MICHELLE, MIC DO Unavailable Unavailable MARILIA-MICHELLE, MIC DO Unavailable Unavailable MARILIA-MICHELLE, MIC DO Unavailable Unavailable MARILIA-MICHELLE, MIC DO Unavailable Unavailable MARILIA-MICHELLE, MIC DO Unavailable Unavailable MARILIA-MICHELLE, MIC DO Unavailable Unavailable MARILIA-MICHELLE, MIC DO Unavailable Unavailable MARILIA-MICHELLE, MIC DO Unavailable Unavailable MARILIA-MICHELLE, MIC DO Unavailable Unavailable MARILIA-MICHELLE, MIC DO Unavailable Unavailable MARILIA-MICHELLE, MIC DO Unavailable Unavailable O'jaxon, A James PA Unavailable Unavailable O'jaxon, A James PA Unavailable Unavailable O'jaxon, A James PA Unavailable Unavailable O'jaxon, A James PA Unavailable Unavailable O'jaxon, A James PA Unavailable Unavailable O'jaxon, A James PA Unavailable Unavailable O'jaxon, A James PA Unavailable Unavailable O'jaxon, A James PA Unavailable Unavailable O'jaxon, A James PA Unavailable Unavailable O'jaxon, A James PA Unavailable Unavailable O'jaxon, A James PA Unavailable Unavailable O'jaxon, A James PA Unavailable Unavailable O'jaxon, A James PA Unavailable Unavailable O'jaxon, A James PA Unavailable Unavailable O'jaxon, A James PA Unavailable Unavailable O'jaxon, A James PA Unavailable Unavailable O'jaxon, A James PA Unavailable Unavailable O'jaxon, A James PA Unavailable Unavailable O'jaxon, A James PA Unavailable Unavailable O'jaxon, A James PA Unavailable Unavailable O'jaxon, A James PA Unavailable Unavailable O'jaxon, A James PA Unavailable Unavailable O'jaxon, A James PA Unavailable Unavailable O'jaxon, A James PA Unavailable Unavailable O'jaxon, A James PA Unavailable Unavailable O'jaxon, A James PA Unavailable Unavailable O'jaxon, A James PA Unavailable Unavailable O'jaxon, A James PA Unavailable Unavailable O'jaxon, A James PA Unavailable Unavailable O'jaxon, A James PA Unavailable Unavailable O'jaxon, A James PA Unavailable Unavailable O'jaxon, A James PA Unavailable Unavailable Re-disclosure Warning The records that you are about to access may contain information from federally-assisted alcohol or drug abuse programs. If such information is present, then the following federally mandated warning applies: This information has been disclosed to you from records protected by federal confidentiality rules (42 CFR part 2). The federal rules prohibit you from making any further disclosure of this information unless further disclosure is expressly permitted by the written consent of the person to whom it pertains or as otherwise permitted by 42 CFR part 2. A general authorization for the release of medical or other information is NOT sufficient for this purpose. The Federal rules restrict any use of the information to criminally investigate or prosecute any alcohol or drug abuse patient.The records that you are about to access may contain highly sensitive health information, the redisclosure of which is protected by Article 27-F of the [facility] Public Health law. If you continue you may have access to information: Regarding HIV / AIDS; Provided by facilities licensed or operated by the [facility] Office of Mental Health; or Provided by the [facility] Office for People With Developmental Disabilities. If such information is present, then the following [facility] mandated warning applies: This information has been disclosed to you from confidential records which are protected by state law. State law prohibits you from making any further disclosure of this information without the specific written consent of the person to whom it pertains, or as otherwise permitted by law. Any unauthorized further disclosure in violation of state law may result in a fine or [place] health [facility] sentence or both. A general authorization for the release of medical or other information is NOT sufficient authorization for further disc losure. Family History Family Member Name Family Member Gender Family Member Status Date o f Status Description Data Source(s) Unknown Unknown Problem [facility] ([facility] ) Encounters Encounter Providers Location Date Indications Data Source(s ) Outpatient Attender: James ALVES [facility] 11/09/2020 09:40:00 AM EST [facility] ([facility]) Outpatient Attender: James ALVES [facility] 08/16/2020 08:45:00 AM EDT [facility] ([facility]) Outpatient Attender: MIC GUTHRIE DO [facility] 07/27/2020 02:40:00 PM EDT [facility] ([facility]) Outpatient Attender: James ALVES [facility] 07/22/2020 08:30:00 AM EDT [facility] ([facility]) Outpatient Attender: James ALVES [facility] 05/28/2020 11:30:00 AM EDT [facility] ([facility]) Outpatient Attender: James ALVES [facility] 05/06/2020 03:30:00 PM EDT [facility] ([facility]) Outpatient Attender: James ALVES [facility] 04/20/2020 03:30:00 PM EDT [facility] ([facility]) Outpatient Attender: DEEPIKA RODRIGUEZConsultant: TISHA ALVES 04/14/2020 11:10:00 AM EDT - 04/14/2020 11:10:00 AM EDT [facility] Outpatient Attender: James ALVES [facility] 02/18/2020 11:40:00 AM EDT [facility] ([facility]) Outpatient Attender: MIC GUTHRIE DO [facility] 12/18/2019 03:10:00 PM EST [facility] ([facility]) Outpatient Attender: MIC GUTHRIE DO [facility] 11/06/2019 08:20:00 AM EST [facility] ([facility]) Medications Medication Brand Name Start Date Product Form Dose Route Admi nistrative Instructions Pharmacy Instructions Status Indications Reaction Description Data Source(s) [id number] 11/11/2020 12:00:00 AM EST Elixir 90 TAKE 15 ML BY MOUTH TWO TIMES A DAY NEEDED TAKE 15 ML BY MOUTH TWO TIMES A DAY NEEDED SOLD: 11/11/2020 [facility] 37.5 mg 11/10/2020 12:00:00 AM EST capsule, ER triphasic 2 4 hr 90 TAKE ONE CAPSULE BY MOUTH EVERY DAY MAXIMUM DAILY DOSE = 1 CAPSULE TAKE ONE CAPSULE BY MOUTH EVERY DAY MAXIMUM DAILY DOSE = 1 CAPSULE SOLD: 11/10/2020 [facility] Esomeprazole 40 MG Delayed Release Oral Capsule ESOMEPRAZOLE MAGNESIUM 11/10/2020 12:00:00 AM EST capsule,delayed release(DR/EC) 120 TAKE 1 CAPSULE TWICE A DAY FOR 1 MONTH, THEN RETURN TO 1 CAPSULE ONCE A DAY. TAKE ON EMPTY STOMACH TAKE 1 CAPSULE TWICE A DAY FOR 1 MONTH, THEN RETURN TO 1 CAPSULE ONCE A DAY. TAKE ON EMPTY STOMACH SOLD: 11/10/2020 [facility] 100 mg/mL 11/10/2020 12:00:00 AM EST suspension 840 TAKE 10ML BY MOUTH EVERY 12 HOURS TAKE 10ML BY MOUTH EVERY 12 HOURS SOLD: 11/10/2020 [facility] 1 mg 11/10/2020 12:00:00 AM EST tablet 56 TAKE ONE TABLET BY MOUTH TWICE A DAY TAKE ONE TABLET BY MOUTH TWICE A DAY SOLD: 11/10/2020 [facility] Sucralfate 100 MG/ML Oral Suspension [Carafate] Carafate 11/09/2020 12:00:00 AM EST ORAL active [facility] ([facility]) GI Cocktail (Maalox, Dontatol, Lidocaine) 11/09/2020 12:00:0 0 AM EST ORAL active [facility] ([facility]) Chantix Continuing Month Horacio Chantix Continuing Month Horacio 12:00:00 AM EST ORAL active [facility] ([facility]) Mydayis Mydayis 11/09/2020 12:00:00 AM EST ORAL active [facility] ([facility]) 60 mg 10/26/2020 12:00:00 AM EST capsule,delayed release (DR/EC) 90 TAKE ONE CAPSULE BY MOUTH EVERY DAY TAKE ONE CAPSULE BY MOUTH EVERY DAY SOLD: 11/02/2020 [facility] 4 mg 10/26/2020 12:00:00 AM EST tablet 45 TAKE 1-2 TABLETS BY MOUTH EVERY 6 HOURS NEEDED FOR NAUSEA TAKE 1-2 TABLETS BY MOUTH EVERY 6 HOURS NEEDED FOR NAUSEA SOLD: 11/02/2020 [facility] 1 mg 10/26/2020 12:00:00 AM EST tablet 60 TAKE 1 TABLET BY MOUTH TWICE A DAY NEEDED MAX DAILY DOSE = 2 TABLETS TAKE 1 TABLET BY MOUTH TWICE A DAY NEEDED MAX DAILY DOSE = 2 TABLETS SOLD: 11/02/2020 [facility] 200 mg 08/19/2020 12:00:00 AM EDT tablet 2 TAKE 1 TABLET BY MOUTH AFTER FINISHING ANTIBIOTICS AND 2 DAYS LATER IF SYMPTOMS PERSIST TAKE 1 TABLET BY MOUTH AFTER FINISHING ANTIBIOTICS AND 2 DAYS LATER IF SYMPTOMS PERSIST SOLD: 08/29/2020 [facility] Fluconazole 200 MG Oral Tablet [Diflucan] Diflucan 08/19/2020 1 2:00:00 AM EDT completed [facility] ([facility]) Sulfamethoxazole 800 MG / Trimethoprim 160 MG Oral Tablet [B actrim] Bactrim DS 08/16/2020 12:00:00 AM EDT ORAL completed [facility] ([facility]) Mupirocin 0.02 MG/MG Topical Ointment Mupirocin 08/16/2020 12:00:00 AM EDT completed [facility] ([facility]) Sulfamethoxazole 800 MG / Trimethoprim 160 MG Oral Tab let 800-160 mg SULFAMETHOXAZOLE/TRIMETHOPRIM 08/16/2020 12:00:00 AM EDT tablet 20 TAKE ONE TABLET BY MOUTH EVERY 12 HOURS FOR 10 DAYS TAKE ONE TABLET BY MOUTH EVERY 12 HOURS FOR 10 DAYS SOLD: 08/16/2020 [facility] 2 % 08/16/2020 12:00:00 AM EDT ointment 22 APPLY OINTMENT AROUND LEFT ARM AND LOWER BACK TWO TIMES A DAY FOR 10 DAYS APPLY OINTMENT AROUND LEFT ARM AND LOWER BACK TWO TIMES A DAY FOR 10 DAYS SOLD: 08/16/2020 [facility] levocetirizine dihydrochloride 5 MG Oral Tablet Levocetirizi ne Dihydrochloride 08/16/2020 12:00:00 AM EDT ORAL active [facility] ([facility]) Flonase Allergy Relief Flonase Allergy Relief 08/16/2020 12:00:00 AM E DT active [facility] ([facility]) 5 mg 08/16/2020 12:00:00 AM EDT tablet 90 TAKE ONE TABLET BY MOUTH AT BEDTIME TAKE ONE TABLET BY MOUTH AT BEDTIME SOLD: 08/16/2020 [facility] 50 mcg/actuation 08/16/2020 12:00:00 AM EDT spray,suspension 16 SPRAY 2 SPRAYS IN EACH NOSTRIL ONCE DAILY SPRAY 2 SPRAYS IN EACH NOSTRIL ONCE DAILY SOLD: 08/16/2020 [facility] 300 mg 08/12/2020 12:00:00 AM EDT capsule 30 TAKE ONE CAPSULE BY MOUTH THREE TIMES A DAY FOR 10 DAYS TAKE ONE CAPSULE BY MOUTH THREE TIMES A DAY FOR 10 DAYS SOLD: 08/14/2020 [facility] 150 mg 08/12/2020 12:00:00 AM EDT tablet 1 TAKE ONE TABLET BY MOUTH FOR 1 DAY TAKE ONE TABLET BY MOUTH FOR 1 DAY SOLD: 08/14/2020 [facility] 800 mg 08/12/2020 12:00:00 AM EDT tablet 30 TAKE ONE TABLET BY MOUTH THREE TIMES A DAY FOR 10 DAYS TAKE ONE TABLET BY MOUTH THREE TIMES A DAY FOR 10 DAYS SOLD: 08/14/2020 [facility] Trazodone Hydrochloride 100 MG Oral Tablet TRAZODONE HCL 07/30/2020 12:00:00 AM EDT tablet 90 TAKE ONE TABLET BY MOUTH JOSIAH RY DAY AT BEDTIME TAKE ONE TABLET BY MOUTH EVERY DAY AT BEDTIME SOLD: 08/14/2020 [facility] 25 mg 07/23/2020 12:00:00 AM EDT capsule, ER triphasic 2 4 hr 90 TAKE 1 CAPSULE BY MOUTH DAILY MAXIMUM DAILY DOSE = 1 CAPSULE TAKE 1 CAPSULE BY MOUTH DAILY MAXIMUM DAILY DOSE = 1 CAPSULE SOLD: 07/26/2020 [facility] 225 mg/1.5 mL 07/23/2020 12:00:00 AM EDT auto-injector 4 INJECT UNDER THE SKIN ONCE MONTHLY INJECT UNDER THE SKIN ONCE MONTHLY SOLD: 07/26/2020 [facility] Mydayis Mydayis 07/22/2020 12:00:00 AM EDT ORAL complet ed [facility] ([facility]) 1 mg 07/22/2020 12:00:00 AM EDT tablet 60 TAKE ONE TABLET BY MOUTH TWICE A DAY NEEDED MAXIMUM DAILY DOSE = 2 TABLETS TAKE ONE TABLET BY MOUTH TWICE A DAY NEEDED MAXIMUM DAILY DOSE = 2 TABLETS SOLD: 07/26/2020 [facility] Esomeprazole 40 MG Delayed Release Oral Capsule ESOMEPRAZOLE MAGNESIUM 07/22/2020 12:00:00 AM EDT capsule,delayed release(DR/EC) 90 TAKE ONE CAPSULE BY MOUTH EVERY DAY ON EMPTY STOMACH TAKE ONE CAPSULE BY MOUTH EVERY DAY ON E MPTY STOMACH SOLD: 07/26/2020 [facility] Trazodone Hydrochloride 100 MG Oral Tablet Trazodone HCL 07/22/2020 12:00:00 AM EDT ORAL active [facility] ([facility]) Esomeprazole 40 MG Delayed Release Oral Capsule [Nexium] Nex ium 07/22/2020 12:00:00 AM EDT ORAL active [facility] ([facility]) 60 mg 07/22/2020 12:00:00 AM EDT capsule,delayed release (DR/EC) 90 TAKE ONE CAPSULE BY MOUTH EVERY DAY TAKE ONE CAPSULE BY MOUTH EVERY DAY SOLD: 07/26/2020 [facility] 50 mg 07/22/2020 12:00:00 AM EDT tablet 12 TAKE ONE TABLET AT THE ONSET OF SYMPTOMS, REPEAT 2 HOURS IF NOT IMPROVED MAXIMUM DAILY DOSE = 2 TAKE ONE TABLET AT THE ONSET OF SYMPTOMS, REPEAT 2 HOURS IF NOT IMPROVED MAXIMUM DAILY DOSE = 2 SOLD: 07/26/2020 [facility] 25 mg 05/31/2020 12:00:00 AM EDT capsule, ER triphasic 2 4 hr 30 TAKE ONE CAPSULE BY MOUTH EVERY DAY * MAXIMUM DAILY DOSE = 1 TAKE ONE CAPSULE BY MOUTH EVERY DAY * MAXIMUM DAILY DOSE = 1 SOLD: 05/31/2020 [facility] 100 mg/mL 05/28/2020 12:00:00 AM EDT suspension 840 TAKE 10ML BY MOUTH EVERY 8 HOURS TAKE 10ML BY MOUTH EVERY 8 HOURS SOLD: 05/31/2020 [facility] 4 mg 05/28/2020 12:00:00 AM EDT tablet 45 TAKE 1 TO 2 TABLETS BY MOUTH EVERY 6 HOURS NEEDED FOR NAUSEA TAKE 1 TO 2 TABLETS BY MOUTH EVERY 6 JOHNSON RS NEEDED FOR NAUSEA SOLD: 05/31/2020 [facility] Omeprazole 40 MG Delayed Release Oral Capsule Omeprazole 05/28/2020 12:00:00 AM EDT ORAL completed [facility] ([facility]) Ondansetron 4 MG Oral Tablet [Zofran] Zofran 05/28/2020 12:00:00 AM EDT ORAL active [facility] ([facility]) 40 mg 05/28/2020 12:00:00 AM EDT capsule,delayed release (DR/EC) 180 TAKE ONE CAPSULE BY MOUTH EVERY 12 HOURS ON EMPTY STOMACH X 1 MONTH THEN ONCE DAILY AFTER TAKE ONE CAPSULE BY MOUTH EVERY 12 HOURS ON EMPTY STOMACH X 1 MONTH THEN ONCE DAILY AFTER SOLD: 05/31/2020 [facility] Sucralfate 100 MG/ML Oral Suspension [Carafate] Carafate 05/28/2020 12:00:00 AM EDT ORAL completed [facility] ([facility]) 50 mg 05/07/2020 12:00:00 AM EDT tablet 180 TAKE 1-2 TABLETS BY MOUTH EVERY NIGHT AT BEDTIME TAKE 1-2 TABLETS BY MOUTH EVERY NIGHT AT BEDTIME SOLD: 05/12/2020 [facility] Trazodone Hydrochloride 50 MG Oral Tablet Trazodone HCL 05/06/2020 12:00:00 AM EDT ORAL completed [facility] ([facility]) 225 mg/1.5 mL 04/22/2020 12:00:00 AM EDT auto-injector 4 INJECT ONCE MONTHLY UNDER THE SKIN INJECT ONCE MONTHLY UNDER THE SKIN SOLD: 04/22/2020 [facility] 1 mg 04/21/2020 12:00:00 AM EDT tablet 60 TAKE ONE TABLET BY MOUTH TWICE A DAY NEEDED * MAXIMUM DAILY DOSE = 2 TAKE ONE TABLET BY MOUTH TWICE A DAY NEEDED * MAXIMUM DAILY DOSE = 2 SOLD: 04/22/2020 [facility] 10 mg 04/20/2020 12:00:00 AM EDT tablet 20 TAKE ONE TABLET BY MOUTH EVERY 8 HOURS WITH FOOD FOR MAX 5 DAYS TAKE ONE TABLET BY MOUTH EVERY 8 HOURS W ITH FOOD FOR MAX 5 DAYS SOLD: 04/22/2020 [facility] 25 mg 04/20/2020 12:00:00 AM EDT capsule, ER triphasic 2 4 hr 30 TAKE ONE CAPSULE BY MOUTH EVERY DAY * MAXIMUM DAILY DOSE = 1 TAKE ONE CAPSULE BY MOUTH EVERY DAY * MAXIMUM DAILY DOSE = 1 SOLD: 04/22/2020 [facility] 04/20/2020 12:00:00 AM EDT SUBCUTANEOUS act dora [facility] ([facility]) 1 mg 03/19/2020 12:00:00 AM EDT tablet 60 TAKE ONE TABLET BY MOUTH TWICE A DAY NEEDED MAXIMUM DAILY DOSE = 2 TABLETS TAKE ONE TABLET BY MOUTH TWICE A DAY NEEDED MAXIMUM DAILY DOSE = 2 TABLETS SOLD: 03/22/2020 [facility] 25 mg 03/17/2020 12:00:00 AM EDT capsule, ER triphasic 2 4 hr 30 TAKE 1 CAPSULE BY MOUTH DAILY MAXIMUM DAILY DOSE = 1 CAPSULE TAKE 1 CAPSULE BY MOUTH DAILY MAXIMUM DAILY DOSE = 1 CAPSULE SOLD: 03/18/2020 [facility] 10 mg 03/15/2020 12:00:00 AM EDT tablet 15 TAKE 1 TABLET BY MOUTH EVERY 8 HOURS WITH FOOD FOR MAX OF 5 DAYS TAKE 1 TABLET BY MOUTH EVERY 8 HOURS WIT H FOOD FOR MAX OF 5 DAYS SOLD: 03/18/2020 [facility] 60 mg 03/02/2020 12:00:00 AM EDT capsule,delayed release (DR/EC) 90 TAKE ONE CAPSULE BY MOUTH EVERY DAY TAKE ONE CAPSULE BY MOUTH EVERY DAY SOLD: 03/18/2020 [facility] duloxetine 60 MG Delayed Release Oral Capsule [Cymbalta] Cym valentin 03/01/2020 12:00:00 AM EDT ORAL active [facility] ([facility]) 200 mg 02/24/2020 12:00:00 AM EDT tablet 2 TAKE 1 TABLET BY MOUTH AFTER FINISHING ANTIBIOTICS & 1 TWO DAYS LATER IF SYMPTOMS PERSIST TAKE 1 TABLET BY MOUTH AFTER FINISHING ANTIBIOTICS & 1 TWO DAYS LATER IF SYMPTOMS PERSIST SOLD: 02/25/2020 [facility] Fluconazole 200 MG Oral Tablet [Diflucan] Diflucan 02/24/2020 1 2:00:00 AM EDT completed [facility] ([facility]) 200 mg 02/18/2020 12:00:00 AM EDT tablet 9 TAKE 1 TABLET BY MOUTH EVERY 8 HOURS TAKE 1 TABLET BY MOUTH EVERY 8 HOURS SOLD: 02/18/2020 [facility] 25 mg 02/18/2020 12:00:00 AM EDT capsule, ER triphasic 2 4 hr 30 TAKE 1 CAPSULE BY MOUTH DAILY MAXIMUM DAILY DOSE = 1 CAPSULE TAKE 1 CAPSULE BY MOUTH DAILY MAXIMUM DAILY DOSE = 1 CAPSULE SOLD: 02/18/2020 [facility] 3.5-10,000-1 mg/mL-unit/mL-% 02/18/2020 12:00:00 AM EDT solu tion 10 INSTILL 2-3 DROPS IN EACH EAR EVERY 12 HOURS INSTILL 2-3 DROPS IN EACH EAR EVERY 12 HOURS SOLD: 02/18/2020 [facility] 800-160 mg 02/18/2020 12:00:00 AM EDT tablet 20 TAKE 1 TABLET BY MOUTH EVERY 12 HOURS FOR 10 DAYS TAKE 1 TABLET BY MOUTH EVERY 12 HOURS FOR 10 DAYS SOLD : 02/18/2020 [facility] Phenazopyridine hydrochloride 200 MG Oral Tablet [Pyridium] Pyridium 02/18/2020 12:00:00 AM EDT ORAL completed [facility] ([facility]) Sulfamethoxazole 800 MG / Trimethoprim 160 MG Oral Tablet [B actrim] Bactrim DS 02/18/2020 12:00:00 AM EDT ORAL completed [facility] ([facility]) Hydrocortisone 10 MG/ML / Neomycin 3.5 M G/ML / Polymyxin B 14882 UNT/ML Otic Solution Neomycin/Polymyxin/Hydrocortisone (Otic) 02/18/2020 12:00:00 AM EDT completed [facility] ([facility]) 1 mg 02/17/2020 12:00:00 AM EDT tablet 60 TAKE ONE TABLET BY MOUTH TWO TIMES A DAY NEEDED , MAXIMUM DAILY DOSE = 2 TABLETS TAKE ONE TABLET BY MOUTH TWO TIMES A DAY NEEDED , MAXIMUM DAILY DOSE = 2 TABLETS SOLD: 02/18/2020 [facility] 500 mg 02/04/2020 12:00:00 AM EDT tablet 10 TAKE ONE TABLET BY MOUTH EVERY 12 HOURS TAKE ONE TABLET BY MOUTH EVERY 12 HOURS SOLD: 02/04/2020 [facility] 200 mg 02/04/2020 12:00:00 AM EDT tablet 9 TAKE ONE TABLET BY MOUTH EVERY 8 HOURS TAKE ONE TABLET BY MOUTH EVERY 8 HOURS SOLD: 02/04/2020 [facility] Ciprofloxacin 500 MG Oral Tablet Ciprofloxacin HCL 02/04/2020 12:00 :00 AM EDT completed [facility] ([facility]) Phenazopyridine hydrochloride 200 MG Oral Tablet [Pyridium] Pyridium 02/04/2020 12:00:00 AM EDT ORAL completed [facility] ([facility]) 0.5 mg (11)- 1 mg (42) 01/29/2020 12:00:00 AM EDT tablets,do se pack 53 TAKE DIRECTED TAKE DIRECTED SOLD: 01/31/2020 [facility] Chantix Starting Month Horacio Chantix Starting Month Horacio 2019 12:00:00 AM EDT completed [facility] ([facility]) 10 mg 01/16/2020 12:00:00 AM EDT tablet 15 TAKE 1 TABLET BY MOUTH EVERY 8 HOURS WITH FOOD FOR A MAX OF 5 DAYS TAKE 1 TABLET BY MOUTH EVERY 8 HOURS WIT H FOOD FOR A MAX OF 5 DAYS SOLD: 01/16/2020 [facility] 25 mg 01/16/2020 12:00:00 AM EDT capsule, ER triphasic 2 4 hr 30 TAKE ONE CAPSULE BY MOUTH EVERY DAY MAXIMUM DAILY DOSE = 1 CAPSULE TAKE ONE CAPSULE BY MOUTH EVERY DAY MAXIMUM DAILY DOSE = 1 CAPSULE SOLD: 01/16/2020 [facility] 1 mg 01/16/2020 12:00:00 AM EDT tablet 60 TAKE ONE TABLET BY MOUTH TWICE A DAY NEEDED MAXIMUM DAILY DOSE = 2 TABLETS TAKE ONE TABLET BY MOUTH TWICE A DAY NEEDED MAXIMUM DAILY DOSE = 2 TABLETS SOLD: 01/16/2020 [facility] 30 mg 01/16/2020 12:00:00 AM EDT capsule,delayed release (DR/EC) 90 TAKE ONE CAPSULE BY MOUTH EVERY DAY TAKE ONE CAPSULE BY MOUTH EVERY DAY SOLD: 01/16/2020 [facility] 1 mg 12/17/2019 12:00:00 AM EST tablet 60 TAKE 1 TABLET BY MOUTH TWICE A DAY NEEDED MAX DAILY DOSE = 2 TABLETS TAKE 1 TABLET BY MOUTH TWICE A DAY NEEDED MAX DAILY DOSE = 2 TABLETS SOLD: 12/18/2019 [facility] 25 mg 12/08/2019 12:00:00 AM EST capsule, ER triphasic 2 4 hr 30 TAKE 1 CAPSULE BY MOUTH DAILY MAXIMUM DAILY DOSE = 1 CAPSULE TAKE 1 CAPSULE BY MOUTH DAILY MAXIMUM DAILY DOSE = 1 CAPSULE SOLD: 12/09/2019 [facility] 50 mg 12/08/2019 12:00:00 AM EST tablet 12 TAKE 1 TAB.BY MOUTH ONSET OF SYMPTOMS REPEAT 2HRS IF NOT IMPROVED MAX 2/DAY TAKE 1 TAB.BY MOUTH ONSET OF SYMPTOMS REPEAT 2HRS IF NOT IMPROVED MAX 2/DAY SOLD: 12/09/2019 [facility] 10 mg 12/08/2019 12:00:00 AM EST tablet 20 TAKE 1 TABLET BY MOUTH EVERY 8 HOURS WITH FOOD FOR MAX OF 5 DAYS TAKE 1 TABLET BY MOUTH EVERY 8 HOURS WIT H FOOD FOR MAX OF 5 DAYS SOLD: 12/09/2019 [facility] 1 mg 11/07/2019 12:00:00 AM EST tablet 60 TAKE ONE TABLET BY MOUTH TWICE A DAY NEEDED MAXIMUM DAILY DOSE = 2 TABLETS TAKE ONE TABLET BY MOUTH TWICE A DAY NEEDED MAXIMUM DAILY DOSE = 2 TABLETS SOLD: 11/07/2019 [facility] 25 mg 10/28/2019 12:00:00 AM EST capsule, ER triphasic 2 4 hr 30 TAKE 1 CAPSULE BY MOUTH DAILY MAXIMUM DAILY DOSE = 1 CAPSULE TAKE 1 CAPSULE BY MOUTH DAILY MAXIMUM DAILY DOSE = 1 CAPSULE SOLD: 10/31/2019 [facility] 10 mg 10/25/2019 12:00:00 AM EST tablet 15 TAKE ONE TABLET BY MOUTH EVERY 8 HOURS WITH FOOD FOR MAX OF 5 DAYS TAKE ONE TABLET BY MOUTH EVERY 8 HOURS W ITH FOOD FOR MAX OF 5 DAYS SOLD: 10/31/2019 [facility] Chantix Starting Month Horacio Chantix Starting Month Horacio 2018 12:00:00 AM EDT ORAL completed [facility] ([facility]) 0.12 % 04/14/2019 12:00:00 AM EDT mouthwash 473 RINSE 1/2 OUNCE FOR 30 SECONDS THEN SPIT OUT TWO TIMES A DAY FOR 2 WEEKS RINSE 1/2 OUNCE FOR 30 SECONDS THEN SPIT OUT TWO TIMES A DAY FOR 2 WEEKS SOLD: 12/25/2019 [facility] Insurance Providers Payer name Policy type / Coverage type Policy ID Covered democrat ID Covered democrat's relationship to ventura Policy [place] Plan Information SELF PAY ONLY [id number] [employer] [place] 302/307 [id number] SP [id number] [facility] [place] [id number] 18 [id number] [place] [place] 302/307 [id number] SP [id number] [employer] [place] 302/307 [id number] SP [id number] [employer] B [id number] S VYA BC[employer] OF [place] 306/806 [id number] SP [id number] [employer] Health Maintenance Organization (HMO) [id number] Self [id number] [employer] Commercial [id number] Self [id number] [employer] Commercial [id number] Self [id number] [employer] [place] 302/307 [id number] SP [id number] [employer] Commercial [id number] Self [id number] [employer] Commercial [id number] Self [id number] [employer] [place] 306/806 [id number] SP [id number] [employer] [place] P[place] 302/307 [id number] SP [id number] [facility] [employer] Commercial [id number] Self [id number] [employer] Commercial [id number] Self [id number] [employer] Commercial [id number] Self [id number] [employer] [place] 306/806 [id number] SP [id number] [employer] [place] PPO 302/307 [id number] SP [id number] [employer] [id number] Self [id number] [employer] Commercial [id number] Self [id number] [employer] Health Maintenance Organization (HMO) [id number] Self [id number] [employer] Commercial Self BS [facility] Commercial [id number] Self [id number] [employer] [place] 306/806 [id number] SP [id number] [employer] [place] 306/806 [id number] SP [id number] FOR[facility] [id number] [facility] [id number] [facility] MANAG[facility] [id number] SP [id number] [employer] OTHER 1 [id number] Problems, Conditions, and Diagnoses Code Display Name Description Problem Type Effective Dates Data Source(s) 294543649 Gastro-esophageal reflux disease with es ophagitis Gastro-esophageal reflux disease with esophagitis Problem 07/22/2020 12:00:00 AM EDT Cynthia JOHNSON ([facility]) [id number] Irritable bowel syndrome with diarrhea I rritable bowel syndrome with diarrhea Problem 07/22/2020 12:00:00 AM EDT [facility] ([facility]) [id number] Chronic migraine without aura Chronic migraine w ithout aura Problem 07/22/2020 12:00:00 AM EDT [facility] ([facility]) [id number] Mild recurrent major depression Mild recurrent m ajor depression Problem 05/06/2020 12:00:00 AM EDT [facility] ([facility]) F1020 Alcohol dependence, uncomplicated Alcohol depend ence, uncomplicated Diagnosis 04/14/2020 11:10:00 AM EDT [facility] Z634 Disappearance and of family member Disappearance and of family member Diagnosis 04/14/2020 11:10:00 AM EDT [facility] F439 Reaction to severe stress, unspecified R eaction to severe stress, unspecified Diagnosis 04/14/2020 11:10:00 AM EDT [facility] Surgeries/Procedures Procedure Description Date Indications Data Source(s) Omt 7-8 Body Regions 07/27/2020 12:00:00 AM EDT [facility] ([facility]) Results ID Date Data Source [id number] 11/02/2020 02:00:00 PM EST [facility] Name Value Range Interpretation Code Description Data Betsy rce(s) Supporting Document(s) SARS coronavirus 2 RNA Not Detected [facility] [place] This lab was ordered by [facility] and reported by [facility]. ID Date Data Source [id number] 09/15/2020 12:00:00 AM EST [facility] Name Value Range Interpretation Code Description Data Betsy rce(s) Supporting Document(s) 2018-nCoV RNA XXX CAROLYN+probe-Imp [facility] This lab was ordered by [facility] and reported by [employer] ID Date Data Source [id number] 08/14/2020 12:00:00 AM EDT [facility] Name Value Range Interpretation Code Description Data Betsy rce(s) Supporting Document(s) 2018-nCoV RNA XXX CAROLYN+probe-Imp [facility] This lab was ordered by [facility] and reported by [employer] ID Date Data Source [id number] 07/22/2020 09:36:00 AM EDT [facility] ([facility]) Name Value Range Interpretation Code Description Data Betsy rce(s) Supporting Document(s) Calcidiol [Mass/volume] in Serum or Plasma 27.6 ng/mL 30.0- 100.0 Below low normal [facility] ([facility]) ID Date Data Source [id number] 07/22/2020 09:36:00 AM EDT [facility] ([facility]) Name Value Range Interpretation Code Description Data Betsy rce(s) Supporting Document(s) Thyroid Stimulating Hormone 2.310 uIU/ML 0.358-3.740 Norm al (applies to non- numeric results) [facility] ([facility]) Free T4 1.21 ng/dL 0.76-1.46 Normal (applies to non-numeric resul ts) [facility] ([facility]) ID Date Data Source [id number] 07/22/2020 09:36:00 AM EDT [facility] ([facility]) Name Value Range Interpretation Code Description Data Betsy rce(s) Supporting Document(s) Magnesium [Mass/volume] in Serum or Plasma 2.3 mg/dL 1.8-2 .4 Normal (applies to non-numeric results) [facility] ([facility]) ID Date Data Source [id number] 07/22/2020 09:36:00 AM EDT [facility] ([facility]) Name Value Range Interpretation Code Description Data Betsy rce(s) Supporting Document(s) Vitamin B12 Level 404 pg/mL Normal (applies to non-numeri c results) [facility] ([facility]) VITAMIN B12 NORMAL RANGE NORMAL 247 - 911 PG/ML INDETERMINATE 211 - 246 PG/ML DEFICIENT LESS THAN 211 PG/ML Folate 14.9 ng/mL Normal (applies to non-numeric resul ts) [facility] ([facility]) FOLATE NORMAL RANGE NORMAL GREATER THAN 5.4 NG/ML INDETERMINATE 3.4-5.4 NG/ML DEFICIENT LESS THAN 3.4 NG/ML ID Date Data Source [id number] 07/22/2020 09:36:00 AM EDT [facility] ([facility]) Name Value Range Interpretation Code Description Data Betsy rce(s) Supporting Document(s) Iron (Fe) 101 ug/dL 50-170 Normal (applies to non-numeric resul ts) [facility] ([facility]) Percent Saturation 24.3 % 13.2-45.0 Normal (applies to non-numer ic results) [facility] ([facility]) Total Iron Binding Capacity 416 ug/dL 250-450 Norm al (applies to non-numeric results) [facility] ([facility]) ID Date Data Source [id number] 07/22/2020 09:36:00 AM EDT [facility] ([facility]) Name Value Range Interpretation Code Description Data Betsy rce(s) Supporting Document(s) Ferritin [Mass/volume] in Serum or Plasma 120 ng/mL 8-252 Normal (applies to non-numeric results) [facility] ([facility]) ID Date Data Source [id number] 07/22/2020 09:36:00 AM EDT [facility] ([facility]) Name Value Range Interpretation Code Description Data Betsy rce(s) Supporting Document(s) Glucose, Fasting 104 mg/dL 70-100 Above high normal [facility]) Glomerular Filtration Rate Laboratory test result Normal (applies to non- numeric results) [facility] ([facility]) <content>Units are mL/min/1.73 m2</content>
<content></content>
<content>Chronic Kidney Disease Staging per NKF:</content>
<content></content>
<content>Stage I & II GFR >=60 Normal to Mildly Decreased</content>
<content>Stage III GFR 30- 59 Moderately Decreased</content>
<content>Stage IV GFR 15-29 Severely Decreased</content>
<content>Stage V GFR <15 Very Little GFR Left</content>
<content>ESRD GFR <15 on [employer]</content>
<content></content> Blood Urea Nitrogen 18 mg/dL 7-18 Normal (applies to non-nume francheska results) [facility] ([facility]) Creatinine For GFR 0.77 mg/dL 0.55-1.30 Normal (applies to non -numeric results) [facility] ([facility]) Potassium Serum 4.3 meq/L 3.5-5.1 Normal (applies to non-numeric results) [facility] ([facility]) Sodium Level 138 meq/L 136-145 Normal (applies to non-numeric res ults) [facility] ([facility]) Carbon Dioxide Level 25 meq/L 21-32 Normal (applies to non-num jose m results) [facility] ([facility]) Anion Gap 6 meq/L 8-16 Below low normal [facility] ( [facility]) Chloride Level 107 meq/L 98-107 Normal (applies to non-numeric r esults) [facility] ([facility]) Ast/Sgot 9 U/L 7-37 Normal (applies to non-numeric resul ts) [facility] ([facility]) Calcium Level 9.0 mg/dL 8.5-10.1 Normal (applies to non-numeric re sults) [facility] ([facility]) Alt/SGPT 24 U/L 12-78 Normal (applies to non-numeric resul ts) [facility] ([facility]) Alkaline Phosphatase 56 U/L 45-117 Normal (applies to non-num jose m results) [facility] ([facility]) Bilirubin,Total 0.4 mg/dL 0.2-1.0 Normal (applies to non-numeric results) [facility] ([facility]) Total Protein 7.9 GM/DL 6.4-8.2 Normal (applies to non-numeric re sults) [facility] ([facility]) Albumin 3.9 GM/DL 3.2-5.2 Normal (applies to non-numeric resul ts) [facility] ([facility]) Albumin/Globulin Ratio 1.0 1.2-2.2 Below low normal [facility] ([facility]) ID Date Data Source [id number] 07/22/2020 09:36:00 AM EDT [facility] ([facility]) Name Value Range Interpretation Code Description Data Betsy rce(s) Supporting Document(s) Red Blood Count 4.73 10 4.00-5.40 Normal (applies to non-numeric results) [facility] ([facility]) White Blood Count 5.8 10 4.0-10.0 Normal (applies to non-numeri c results) [facility] ([facility]) Hemoglobin 14.2 g/dL 12.0-15.5 Normal (applies to non-numeric resul ts) [facility] ([facility]) Hematocrit 43.7 % 36.0-47.0 Normal (applies to non-numeric resul ts) [facility] ([facility]) Mean Corpuscular Volume 92.4 fl 80.0-96.0 Normal ( applies to non-numeric results) [facility] ([facility]) Mean Corpuscular HGB Conc 32.5 g/dL 32.0-36.5 Normal (applies to non-numeric results) [facility] ([facility]) Mean Corpuscular Hemoglobin 30.0 pg 27.0-33.0 Norm al (applies to non-numeric results) [facility] ([facility]) Neutrophils % 60.5 % 36.0-66.0 Normal (applies to non-numeric re sults) [facility] ([facility]) Red Cell Distribution Width 12.4 % 11.5-14.5 Norm al (applies to non-numeric results) [facility] ([facility]) Platelet Count, Automated 312 10 150-450 Normal (applies to non-numeric results) [facility] ([facility]) [place] % 10.1 % 0.0-5.0 Above high normal [facility] ([facility]) Lymph % 25.5 % 24.0-44.0 Normal (applies to non-numeric resul ts) [facility] ([facility]) Baso % 1.0 % 0.0-1.0 Normal (applies to non-numeric resul ts) [facility] ([facility]) Immature Granulocyte % 0.3 % 0-3.0 Normal (applies to non-n umeric results) [facility] ([facility]) Eos % 2.6 % 0.0-3.0 Normal (applies to non-numeric resul ts) [facility] ([facility]) Neutrophils # 3.5 10 1.5-8.5 Normal (applies to non-numeric re sults) [facility] ([facility]) Nucleated Red Blood Cell % 0.0 % 0-0 Normal (applies to n on-numeric results) [facility] ([facility]) Lymph # 1.5 10 1.5-5.0 Normal (applies to non-numeric resul ts) [facility] ([facility]) [place] # 0.6 10 0.0-0.8 Normal (applies to non-numeric resul ts) [facility] ([facility]) Eos # 0.2 10 0.0-0.5 Normal (applies to non-numeric resul ts) [facility] ([facility]) Baso # 0.1 10 0.0-0.2 Normal (applies to non-numeric resul ts) [facility] ([facility]) ID Date Data Source [id number] 04/02/2020 12:35:00 PM EDT [facility] ([facility]) Name Value Range Interpretation Code Description Data Betsy rce(s) Supporting Document(s) Respiratory Panel Laboratory test result [facility] ([facility]) This respiratory PCR panel detects Influ saige A H1, H3 and 2009 H1 viruses, Influenza B virus, Resp iratory Syncytial Virus, Human metapneumovirus, Parainfluenza virus 1, 2, 3 and 4, Adenovirus, Rhinovirus/Enterovirus, Coronavirus HKU1, NL63, OC43, 229E and SARS-CoV-2 (COVID 19), Bordetella pertussis, Bordetella parapertussis, Mycoplasma pneumoniae and Chlamydia pneumoniae. NEGATIVE by MULTIPLEXED NUCLEIC ACID PCR SARS-CoV-2 (COVID 19) NEGATIVE - SARS-CoV-2 (COVID19) ID Date Data Source [id number] 02/18/2020 12:00:00 PM EDT [facility] ([facility]) Name Value Range Interpretation Code Description Data Betsy rce(s) Supporting Document(s) Bacteria identified in Urine by Culture Laboratory test result Normal (applies to non-numeric results) [facility] ([facility]) FULL REPORT IN LAB NOTES ([facility] and [facility] ). NO GROWTH CLINICAL SIGNIFICANCE 1 ORGANISM ID Date Data Source [id number] 02/18/2020 11:57:00 AM EDT [facility] ([facility]) Name Value Range Interpretation Code Description Data Betsy rce(s) Supporting Document(s) Inhouse Nitrite Laboratory test result [facility] ([facility]) Inhouse Leukocytes Laboratory test result [facility] ([facility]) Inhouse PH 5.0 [facility] ([facility]) Inhouse Urobilinogen Laboratory test result [facility] ([facility]) Inhouse Protein Laboratory test result [facility] ([facility]) Inhouse Specific [place] 1.005 [facility] ([facility]) Inhouse Ketones Laboratory test result [facility] ([facility]) Inhouse Hemoglobin Laboratory test result [facility] ([facility]) Inhouse Glucose Laboratory test result [facility] ([facility]) Inhouse Bilirubin Laboratory test result [facility] ([facility]) ID Date Data Source [id number] 02/03/2020 10:14:00 AM EDT [facility] ([facility]) Name Value Range Interpretation Code Description Data Betsy rce(s) Supporting Document(s) Glucose, Fasting 83 mg/dL 70-100 Normal (applies to non-numeric results) [facility] ([facility]) Blood Urea Nitrogen 9 mg/dL 7-18 Normal (applies to non-nume [place] results) [facility] ([facility]) Creatinine For GFR 0.65 mg/dL 0.55-1.30 Normal (applies to non -numeric results) [facility] ([facility]) Sodium Level 136 meq/L 136-145 Normal (applies to non-numeric res ults) [facility] ([facility]) Glomerular Filtration Rate Laboratory test result Normal (applies to non- numeric results) [facility] ([facility]) <content>Units are mL/min/1.73 m2</content>
<content></content>
<content>Chronic Kidney Disease Staging per NKF:</content>
<content></content>
<content>Stage I & II GFR >=60 Normal to Mildly Decreased</content>
<content>Stage III GFR 30- 59 Moderately Decreased</content>
<content>Stage IV GFR 15-29 Severely Decreased</content>
<content>Stage V GFR <15 Very Little GFR Left</content>
<content>ESRD GFR <15 on [employer]</content>
<content></content> Potassium Serum 4.6 meq/L 3.5-5.1 Normal (applies to non-numeric results) [facility] ([facility]) Carbon Dioxide Level 26 meq/L 21-32 Normal (applies to non-num jose m results) [facility] ([facility]) Chloride Level 106 meq/L 98-107 Normal (applies to non-numeric r esults) [facility] ([facility]) Anion Gap 4 meq/L 8-16 Below low normal [facility] ( [facility]) Calcium Level 9.2 mg/dL 8.5-10.1 Normal (applies to non-numeric re sults) [facility] ([facility]) Alt/SGPT 15 U/L 12-78 Normal (applies to non-numeric resul ts) [facility] ([facility]) Ast/Sgot 11 U/L 7-37 Normal (applies to non-numeric resul ts) [facility] ([facility]) Bilirubin,Total 0.7 mg/dL 0.2-1.0 Normal (applies to non-numeric results) [facility] ([facility]) Alkaline Phosphatase 76 U/L 45-117 Normal (applies to non-num jose m results) [facility] ([facility]) Total Protein 7.5 GM/DL 6.4-8.2 Normal (applies to non-numeric re sults) [facility] ([facility]) Albumin 4.0 GM/DL 3.2-5.2 Normal (applies to non-numeric resul ts) [facility] ([facility]) Albumin/Globulin Ratio 1.14 1.00-1.93 Normal (applies to non-numeric results) [facility] ([facility]) ID Date Data Source [id number] 02/03/2020 10:14:00 AM EDT [facility]) Name Value Range Interpretation Code Description Data Betsy rce(s) Supporting Document(s) Hemoglobin A1c 5.4 % Normal (applies to non-numeric r esults) [facility]) REFERENCE RANGES: 4.5-5.6% NORMAL 5.7-6.4% SUGGESTS IMPAIRED GLUCOSE META BOLISM >= 6.5% ABNORMAL Estimated Average Glucose 108 mg/dL 60-110 Normal (applies to non-numeric results) [facility] ([facility]) ID Date Data Source [id number] 11/12/2019 08:01:00 AM EST [facility]) Name Value Range Interpretation Code Description Data Betsy rce(s) Supporting Document(s) Hemoglobin A1c 5.4 % Normal (applies to non-numeric r esults) [facility] ([facility]) REFERENCE RANGES: 4.5-5.6% NORMAL 5.7-6.4% SUGGESTS IMPAIRED GLUCOSE META BOLISM >= 6.5% ABNORMAL Estimated Average Glucose 108 mg/dL 60-110 Normal (applies to non-numeric results) [facility] ([facility]) ID Date Data Source [id number] 11/12/2019 08:01:00 AM EST [facility] ([facility]) Name Value Range Interpretation Code Description Data Betsy rce(s) Supporting Document(s) Glucose, Fasting 78 mg/dL 70-100 Normal (applies to non-numeric results) [facility] ([facility]) Blood Urea Nitrogen 12 mg/dL 7-18 Normal (applies to non-nume franches[place] results) [facility] ([facility]) Glomerular Filtration Rate Laboratory test result Normal (applies to non- numeric results) [facility] ([facility]) <content>Units are mL/min/1.73 m2</content>
<content></content>
<content>Chronic Kidney Disease Staging per NKF:</content>
<content></content>
<content>Stage I & II GFR >=60 Normal to Mildly Decreased</content>
<content>Stage III GFR 30- 59 Moderately Decreased</content>
<content>Stage IV GFR 15-29 Severely Decreased</content>
<content>Stage V GFR <15 Very Little GFR Left</content>
<content>ESRD GFR <15 on [employer]</content>
<content></content> Creatinine For GFR 0.64 mg/dL 0.55-1.30 Normal (applies to non -numeric results) [facility] ([facility]) Potassium Serum 4.3 meq/L 3.5-5.1 Normal (applies to non-numeric results) [facility] ([facility]) Sodium Level 140 meq/L 136-145 Normal (applies to non-numeric res ults) [facility] ([facility]) Carbon Dioxide Level 26 meq/L 21-32 Normal (applies to non-num jose m results) [facility] ([facility]) Chloride Level 107 meq/L 98-107 Normal (applies to non-numeric r esults) [facility] ([facility]) Calcium Level 8.7 mg/dL 8.5-10.1 Normal (applies to non-numeric re sults) [facility] ([facility]) Anion Gap 7 meq/L 8-16 Below low normal [facility] ( [facility]) Ast/Sgot 9 U/L 7-37 Normal (applies to non-numeric resul ts) [facility] ([facility]) Alt/SGPT 15 U/L 12-78 Normal (applies to non-numeric resul ts) [facility] ([facility]) Alkaline Phosphatase 56 U/L 45-117 Normal (applies to non-num jose m results) [facility] ([facility]) Bilirubin,Total 0.5 mg/dL 0.2-1.0 Normal (applies to non-numeric results) [facility] ([facility]) Albumin 3.7 GM/DL 3.2-5.2 Normal (applies to non-numeric resul ts) [facility] ([facility]) Total Protein 7.0 GM/DL 6.4-8.2 Normal (applies to non-numeric re sults) [facility] ([facility]) Albumin/Globulin Ratio 1.12 1.00-1.93 Normal (applies to non-numeric results) [facility]) Procedure Social History Code Duration Value Status Description Data Source(s ) Smoking 12/18/2019 12:00:00 AM EST Quit completed Quit [facility] ([facility]) Vital Signs ID Date Data Source UNK Name Value Range Interpretation Code Description Data Source(s) [place] body weight 110 [lb_av] 110 [lb_av] [facility] ([facility]) Oxygen saturation in Arterial blood by Pulse oximetry 99 % 99 % [facility] ([facility]) Body temperature 97.3 [degF] 97.3 [degF] [facility] ([facility]) Respiratory rate 20 /min 20 /min [facility] ( [facility]) Heart rate 94 /min 94 /min [facility] ([facility]) Body mass index (BMI) [Ratio] 29.8 kg/m2 29.8 k g/m2 [facility] ([facility]) Body weight 164.00 [lb_av] 164.00 [lb_av] [facility] ([facility]) Body height 62.25 [in_i] 62.25 [in_i] [facility] ([facility]) 5'2.25" Diastolic blood pressure 90 mm[Hg] 90 mm[Hg] [facility] ([facility]) Systolic blood pressure 124 mm[Hg] 124 mm[Hg] [facility] ([facility]) [place] body weight 110 [lb_av] 110 [lb_av] [facility] ([facility]) Oxygen saturation in Arterial blood by Pulse oximetry 99 % 99 % [facility] Body temperature 98.4 [degF] 98.4 [degF] [facility] ([facility]) Respiratory rate 18 /min 18 /min [facility] ( [facility]) Heart rate 113 /min 113 /min [facility] ([facility]) Body mass index (BMI) [Ratio] 27.6 kg/m2 27.6 k g/m2 [facility] ([facility]) Body weight 152.25 [lb_av] 152.25 [lb_av] [facility] ([facility]) Body height 62.25 [in_i] 62.25 [in_i] [facility] ([facility]) 5'2.25" Diastolic blood pressure 68 mm[Hg] 68 mm[Hg] [facility] ([facility]) Systolic blood pressure 118 mm[Hg] 118 mm[Hg] [facility]) [place] body weight 110 [lb_av] 110 [lb_av] [facility] ([facility]) Oxygen saturation in Arterial blood by Pulse oximetry 99 % 99 % [facility] ([facility]) Body temperature 98.1 [degF] 98.1 [degF] [facility] ([facility]) Respiratory rate 18 /min 18 /min [facility] ( [facility]) Heart rate 110 /min 110 /min [facility] ([facility]) Body mass index (BMI) [Ratio] 27.7 kg/m2 27.7 k g/m2 [facility] ([facility]) Body weight 152.50 [lb_av] 152.50 [lb_av] [facility] ([facility]) Body height 62.25 [in_i] 62.25 [in_i] [facility] ([facility]) 5'2.25" Diastolic blood pressure 74 mm[Hg] 74 mm[Hg] [facility] ([facility]) Systolic blood pressure 124 mm[Hg] 124 mm[Hg] [facility] ([facility]) [place] body weight 110 [lb_av] 110 [lb_av] [facility] ([facility]) Oxygen saturation in Arterial blood by Pulse oximetry 100 % 100 % [facility] ([facility]) Body temperature 97.5 [degF] 97.5 [degF] [facility] ([facility]) Respiratory rate 16 /min 16 /min [facility] ( [facility]) Heart rate 97 /min 97 /min [facility] ([facility]) Body mass index (BMI) [Ratio] 26.5 kg/m2 26.5 k g/m2 [facility] ([facility]) Body weight 146.00 [lb_av] 146.00 [lb_av] [facility] ([facility]) Body height 62.25 [in_i] 62.25 [in_i] [facility] ([facility]) 5'2.25" Diastolic blood pressure 70 mm[Hg] 70 mm[Hg] [facility] ([facility]) Systolic blood pressure 102 mm[Hg] 102 mm[Hg] [facility] ([facility]) Oxygen saturation in Arterial blood by Pulse oximetry 95 % 95 % [facility] ([facility]) Body temperature 98.8 [degF] 98.8 [degF] [facility] ([facility]) Respiratory rate 18 /min 18 /min [facility] ( [facility]) Heart rate 102 /min 102 /min [facility] ([facility]) Body mass index (BMI) [Ratio] 25.4 kg/m2 25.4 k g/m2 [facility] ([facility]) Body weight 140.25 [lb_av] 140.25 [lb_av] [facility] ([facility]) Body height 62.25 [in_i] 62.25 [in_i] [facility] ([facility]) 5'2.25" Diastolic blood pressure 70 mm[Hg] 70 mm[Hg] [facility] ([facility]) Systolic blood pressure 114 mm[Hg] 114 mm[Hg] [facility] ([facility]) Oxygen saturation in Arterial blood by Pulse oximetry 98 % 98 % [facility] ([facility]) Body temperature 98.9 [degF] 98.9 [degF] [facility] ([facility]) Respiratory rate 20 /min 20 /min [facility] ( [facility]) Heart rate 129 /min 129 /min [facility] ([facility]) Body mass index (BMI) [Ratio] 24.7 kg/m2 24.7 k g/m2 [facility] ([facility]) Body weight 136.31 [lb_av] 136.31 [lb_av] [facility] ([facility]) Body height 62.25 [in_i] 62.25 [in_i] [facility] ([facility]) 5'2.25" Diastolic blood pressure 68 mm[Hg] 68 mm[Hg] [facility] ([facility]) Systolic blood pressure 110 mm[Hg] 110 mm[Hg] [facility] ([facility]) Oxygen saturation in Arterial blood by Pulse oximetry 96 % 96 % [facility] ([facility]) Body temperature 98.6 [degF] 98.6 [degF] [facility] ([facility]) Respiratory rate 18 /min 18 /min [facility] ( [facility]) Heart rate 110 /min 110 /min [facility] ([facility]) Body mass index (BMI) [Ratio] 25.1 kg/m2 25.1 k g/m2 [facility] ([facility]) Body weight 138.25 [lb_av] 138.25 [lb_av] [facility] ([facility]) Body height 62.25 [in_i] 62.25 [in_i] [facility] ([facility]) '." Diastolic blood pressure 84 mm[Hg] 84 mm[Hg] [facility] ([facility]) Systolic blood pressure 128 mm[Hg] 128 mm[Hg] [facility] ([facility]) Oxygen saturation in Arterial blood by Pulse oximetry 99 % 99 % [facility] ([facility]) Body temperature 98.0 [degF] 98.0 [degF] [facility] ([facility]) Heart rate 103 /min 103 /min [facility] ([facility]) Body mass index (BMI) [Ratio] 25.6 kg/m2 25.6 k g/m2 [facility] ([facility]) Body weight 141.00 [lb_av] 141.00 [lb_av] [facility] ([facility]) Body height 62.25 [in_i] 62.25 [in_i] [facility] ([facility]) " Diastolic blood pressure 82 mm[Hg] 82 mm[Hg] [facility] ([facility]) Systolic blood pressure 124 mm[Hg] 124 mm[Hg] [facility] ([facility]) Oxygen saturation in Arterial blood by Pulse oximetry 99 % 99 % [facility] ([facility]) Body temperature 98.2 [degF] 98.2 [degF] [facility] ([facility]) Respiratory rate 16 /min 16 /min [facility] ( [facility]) Heart rate 82 /min 82 /min [facility] ([facility]) Body mass index (BMI) [Ratio] 25.8 kg/m2 25.8 k g/m2 [facility] ([facility]) Body weight 142.00 [lb_av] 142.00 [lb_av] [facility] ([facility]) Body height 62.25 [in_i] 62.25 [in_i] [facility] ([facility]) 5'2.25" Diastolic blood pressure 68 mm[Hg] 68 mm[Hg] [facility] ([facility]) Systolic blood pressure 118 mm[Hg] 118 mm[Hg] [facility] ([facility]) Body weight 143.12 [lb_av] 143.12 [lb_av] WENDY Fajardo ([facility]) Body height 62.25 [in_i] 62.25 [in_i] [facility] ([facility]) 5'2.25" Diastolic blood pressure 72 mm[Hg] 72 mm[Hg] [facility] ([facility]) Systolic blood pressure 122 mm[Hg] 122 mm[Hg] Cynthia [facility] ([facility]) Oxygen saturation in Arterial blood by Pulse oximetry 99 % 99 % [facility] ([facility]) Body temperature 97.6 [degF] 97.6 [degF] [facility] ([facility]) Respiratory rate 16 /min 16 /min [facility] ( [facility]) Heart rate 88 /min 88 /min [facility] ([facility]) Body mass index (BMI) [Ratio] 26.0 kg/m2 26.0 k g/m2 [facility] ([facility])
[2020-11-25] MEDS ORDERED: DULO1CAP6 (03:15)
[2020-11-25] MEDS ORDERED: CLON1TAB8 (03:15)
[2020-11-25] MEDS ORDERED: ESOM40CA35 (03:15)
[2020-11-25] MEDS ORDERED: CHAN1PAK13 (03:15)
[2020-11-25] MEDS ORDERED: MYDA1CAP (03:15)
[2020-11-25] MEDS ORDERED: SUCR1ORA2 (03:15)
--- NOTE | 2020-11-25 04:18 | REPVR ---
PROCEDURE INFORMATION: Exam: XR Left Wrist Exam date and time: 11/25/2020 3:23 AM Age: 39 years old Clinical indication: Other: Injury TECHNIQUE: Imaging protocol: XR Left wrist. Views: 3 or more views. COMPARISON: CR Hand, complete 12/21/2018 10:40 AM FINDINGS: Bones/joints: There is no evidence of acute fracture or dislocation. Joint spaces are preserved. Soft tissues: The soft tissues appear unremarkable. IMPRESSION: Normal appearance of the left wrist. Electronically signed by: Nishi Bear On 11/25/2020 04:18:10 AM
--- OUTSIDE RECORDS SUMMARY | 2020-11-25 04:21 | CCD ---
Author Author [facility] Organization [facility] Address Unknown Phone Unavailable Care Team Providers Care Slitter And Rewinder Name Role Phone DEEPIKA RODRIGUEZ Unavailable Unavailable [...] Unavailable Unavailable MARILIA-MICHELLE, MIC DO Unavailable Unavailable MAIRLIA-MICHELLE, MIC DO Unavailable Unavailable MARILIA-MICHELLE, MIC DO [...] is protected by Article 27-F of the [facility] Public Health law. If you continue you may have access to information: Regarding HIV / AIDS; Provided by facilities licensed or operated by the [facility] Office of Mental Health; or Provided by the [facility] Office for People With Developmental Disabilities. If such information is present, then the following [facility] mandated warning applies: This information has [...] law may result in a fine or snf sentence or both. A general authorization for the release of medical or other information is NOT sufficient authorization for further disc losure. Family History Family Member Name Family Member Gender Family Member Status Date o f Status Description Data Source(s) Unknown Unknown Problem [facility] ([facility], ) Encounters Encounter Providers Location Date Indications Data Source(s ) Outpatient Attender: James ALVES [facility] 11/09/2020 09:40:00 AM EST [facility] ([facility]) Outpatient Attender: James ALVES [facility] 08/16/2020 08:45:00 AM EDT [facility] ([facility]) Outpatient Attender: MIC GUTHRIE DO [facility] 07/27/2020 02:40:00 PM EDT [facility] ([facility]) Outpatient Attender: James ALVES [facility] 07/22/2020 08:30:00 AM EDT [facility] ([facility]) Outpatient Attender: James ALVES [facility] 05/28/2020 11:30:00 AM EDT [facility] ([facility]) Outpatient Attender: James ALVES [facility] 05/06/2020 03:30:00 PM EDT [facility] ([facility]) Outpatient Attender: James ALVES [facility] 04/20/2020 03:30:00 PM EDT [facility] ([facility]) Outpatient Attender: DEEPIKA RODRIGUEZConsultant: TISHA ALVES 04/14/2020 11:10:00 AM EDT - 04/14/2020 11:10:00 AM EDT [facility] Outpatient Attender: James ALVES [facility] 02/18/2020 11:40:00 AM EDT [facility] ([facility]) Outpatient Attender: MIC GUTHRIE DO [facility] 12/18/2019 03:10:00 PM EST [facility] ([facility]) Outpatient Attender: MIC GUTHRIE DO [facility] 11/06/2019 08:20:00 AM EST [facility] ([facility]) Medications Medication Brand Name Start Date Product Form Dose Route Admi nistrative Instructions Pharmacy Instructions Status Indications Reaction Description Data Source(s) [id number] 11/11/2020 12:00:00 AM EST Elixir 90 TAKE 15 ML BY MOUTH TWO TIMES A DAY NEEDED TAKE 15 ML BY MOUTH TWO TIMES A DAY NEEDED SOLD: 11/11/2020 [facility] 37.5 mg 11/10/2020 12:00:00 AM EST capsule, ER triphasic 2 4 hr 90 TAKE ONE CAPSULE BY MOUTH EVERY DAY MAXIMUM DAILY DOSE = 1 CAPSULE TAKE ONE CAPSULE BY MOUTH EVERY DAY MAXIMUM DAILY DOSE = 1 CAPSULE SOLD: 11/10/2020 [facility] Esomeprazole 40 MG Delayed Release Oral Capsule [...] [facility] ([facility]) GI Cocktail (Maalox, Dontatol, Lidocaine) 11/09/2020 12:00:0 0 AM EST ORAL active [facility] ([facility]) Chantix Continuing Month Horacio Chantix Continuing Month Horacio 12:00:00 AM EST ORAL active [facility] ([facility]) Mydayis Mydayis 11/09/2020 12:00:00 AM EST ORAL active [facility] ([facility]) 60 mg 10/26/2020 12:00:00 AM EST capsule,delayed [...] 08/19/2020 1 2:00:00 AM EDT completed [facility] ([facility]) Sulfamethoxazole 800 MG / Trimethoprim 160 MG Oral Tablet [B actrim] Bactrim DS 08/16/2020 12:00:00 AM EDT ORAL completed [facility] ([facility]) Mupirocin 0.02 MG/MG Topical Ointment Mupirocin 08/16/2020 12:00:00 AM EDT [facility] 08/16/2020 12:00:00 AM EDT ORAL active [facility] ([facility]) Flonase Allergy Relief Flonase Allergy Relief 08/16/2020 12:00:00 AM E DT active [facility] ([facility]) 5 mg 08/16/2020 12:00:00 AM EDT tablet [...] 12:00:00 AM EDT ORAL complet ed [facility] ([facility]) 1 mg 07/22/2020 12:00:00 AM EDT tablet [...] 07/22/2020 12:00:00 AM EDT ORAL active [facility] ([facility]) Esomeprazole 40 MG Delayed Release Oral Capsule [Nexium] Nex ium 07/22/2020 12:00:00 AM EDT ORAL active M EDENT ([facility]) 60 mg 07/22/2020 12:00:00 AM EDT capsule,delayed [...] BY MOUTH EVERY 8 HOURS SOLD: 05/31/2020 [facility] 4 mg 05/28/2020 12:00:00 AM EDT tablet 45 TAKE 1 TO 2 TABLETS BY MOUTH EVERY 6 HOURS NEEDED FOR NAUSEA TAKE 1 TO 2 TABLETS BY MOUTH EVERY 6 JOHNSON RS NEEDED FOR NAUSEA SOLD: 05/31/2020 [facility] Omeprazole 40 MG Delayed Release Oral Capsule Omeprazole 05/28/2020 12:00:00 AM EDT ORAL completed [facility] ([facility]) Ondansetron 4 MG Oral Tablet [Zofran] Zofran 05/28/2020 12:00:00 AM EDT ORAL active [facility] ([facility]) 40 mg 05/28/2020 12:00:00 AM EDT capsule,delayed release (DR/EC) 180 TAKE ONE CAPSULE BY MOUTH EVERY 12 HOURS ON EMPTY STOMACH X 1 MONTH THEN ONCE DAILY AFTER TAKE ONE CAPSULE BY MOUTH EVERY 12 HOURS ON EMPTY STOMACH X 1 MONTH THEN ONCE DAILY AFTER SOLD: 05/31/2020 [facility] Sucralfate 100 MG/ML Oral Suspension [Carafate] Carafate 05/28/2020 12:00:00 AM EDT ORAL completed [facility] ([facility]) 50 mg 05/07/2020 12:00:00 AM EDT tablet 180 TAKE 1-2 TABLETS BY MOUTH EVERY NIGHT AT BEDTIME TAKE 1-2 TABLETS BY MOUTH EVERY NIGHT AT BEDTIME SOLD: 05/12/2020 [facility] Trazodone Hydrochloride 50 MG Oral Tablet Trazodone HCL 05/06/2020 12:00:00 AM EDT ORAL completed [facility] ([facility]) 225 mg/1.5 mL 04/22/2020 12:00:00 AM EDT [...] 12:00:00 AM EDT SUBCUTANEOUS act dora [facility] ([facility]) 1 mg 03/19/2020 12:00:00 AM EDT tablet [...] 12:00:00 AM EDT ORAL active M EDENT ([facility]) 200 mg 02/24/2020 12:00:00 AM EDT tablet 2 TAKE 1 TABLET BY MOUTH AFTER FINISHING ANTIBIOTICS & 1 TWO DAYS LATER IF SYMPTOMS PERSIST TAKE 1 TABLET BY MOUTH AFTER FINISHING ANTIBIOTICS & 1 TWO DAYS LATER IF SYMPTOMS PERSIST SOLD: 02/25/2020 [facility] Fluconazole 200 MG Oral Tablet [Diflucan] Diflucan 02/24/2020 1 2:00:00 AM EDT completed [facility] ([facility]) 200 mg 02/18/2020 12:00:00 AM EDT tablet [...] 02/18/2020 12:00:00 AM EDT ORAL completed [facility] ([facility]) Sulfamethoxazole 800 MG / Trimethoprim 160 MG Oral Tablet [B actrim] Bactrim DS 02/18/2020 12:00:00 AM EDT ORAL completed [facility] ([facility]) Hydrocortisone 10 MG/ML / Neomycin 3.5 M G/ML / Polymyxin B 25530 UNT/ML Otic Solution Neomycin/Polymyxin/Hydrocortisone (Otic) 02/18/2020 12:00:00 AM EDT completed [facility] ([facility]) 1 mg 02/17/2020 12:00:00 AM EDT tablet [...] 02/04/2020 12:00 :00 AM EDT completed [facility] ([facility]) Phenazopyridine hydrochloride 200 MG Oral Tablet [Pyridium] Pyridium 02/04/2020 12:00:00 AM EDT ORAL completed [facility] ([facility]) 0.5 mg (11)- 1 mg (42) 01/29/2020 12:00:00 AM EDT tablets,do se pack 53 TAKE DIRECTED TAKE DIRECTED SOLD: 01/31/2020 [facility] Chantix Starting Month Horacio Chantix Starting Month Horacio 2019 12:00:00 AM EDT completed [facility] ([facility]) 10 mg 01/16/2020 12:00:00 AM EDT tablet [...] 2018 12:00:00 AM EDT ORAL completed [facility] ([facility]) 0.12 % 04/14/2019 12:00:00 AM EDT mouthwash 473 RINSE 1/2 OUNCE FOR 30 SECONDS THEN SPIT OUT TWO TIMES A DAY FOR 2 WEEKS RINSE 1/2 OUNCE FOR 30 SECONDS THEN SPIT OUT TWO TIMES A DAY FOR 2 WEEKS SOLD: 12/25/2019 [facility] Insurance Providers Payer name Policy type / Coverage type Policy ID Covered green party ID Covered green party's relationship to ventura Policy [place] Plan Information [employer] [place] 302/307 [id number] SP [id number] SELF PAY ONLY [id number] [facility] [id number] 18 [id number] [employer] [place] P[place] 302/307 [id number] SP [id number] [place] [place] P[place] 302/307 [id number] SP [id number] EXCELLUS BCBS B [id number] S [id number] [employer] OF [place] 306/806 [id number] SP [id number] [employer] Health Maintenance Organization (HMO) [id number] Self [id number] [employer] Commercial [id number] Self [id number] [employer] Commercial [id number] Self [id number] [employer] [place] 302/307 [id number] SP [id number] [employer] Commercial [id number] Self [id number] [employer] Commercial [id number] Self [id number] [employer] [place] 306/806 [id number] SP [id number] [employer] [place] PPO 302/307 [id number] SP [id number] [employer] Commercial [id number] Self [id number] [employer] Commercial [id number] Self [id number] [employer] Commercial [id number] Self [id number] [employer] [place] 306/806 [id number] SP [id number] [employer] [place] PPO 302/307 [id number] SP [id number] [employer] Commercial [id number] Self [id number] [employer] Commercial [id number] Self [id number] [employer]BS Health Maintenance Organization (HMO) [id number] Self [id number] [employer] Commercial Self BS [employer] Commercial [id number] Self [id number] [employer] [place] 306/806 [id number] SP [id number] [employer] [place] 306/806 [id number] SP [id number] [facility] [id number] [facility] [id number] [facility] [id number] SP [id number] [employer] OTHER 1 [id number] Problems, Conditions, and Diagnoses Code Display Name Description Problem Type Effective Dates Data Source(s) [id number] Gastro-esophageal reflux disease with es ophagitis Gastro-esophageal reflux disease with esophagitis Problem 07/22/2020 12:00:00 AM EDT Cynthia JOHNSON ([facility]) [id number] Irritable bowel syndrome with diarrhea I rritable bowel syndrome with diarrhea Problem 07/22/2020 12:00:00 AM EDT [facility] ([facility]) [id number] Chronic migraine without aura Chronic migraine w ithout aura Problem 07/22/2020 12:00:00 AM EDT [facility] ([facility]) [id number] Mild recurrent major depression Mild recurrent m ajor depression Problem 05/06/2020 12:00:00 AM EDT [facility] ([facility]) F1020 Alcohol dependence, uncomplicated Alcohol depend ence, uncomplicated Diagnosis 04/14/2020 11:10:00 AM EDT [facility] Z634 Disappearance and of family member Disappearance and of family member Diagnosis 04/14/2020 11:10:00 AM EDT [facility] F439 Reaction to severe stress, unspecified R eaction to severe stress, unspecified Diagnosis 04/14/2020 11:10:00 AM EDT [facility] Surgeries/Procedures Procedure Description Date Indications Data Source(s) Omt 7-8 Body Regions 07/27/2020 12:00:00 AM EDT [facility] ([facility]) Results ID Date Data Source [id number] 11/02/2020 02:00:00 PM EST [facility] Name Value Range Interpretation Code Description Data Betsy rce(s) Supporting Document(s) SARS coronavirus 2 RNA Not Detected [facility] [place] This lab was ordered by [facility] and reported by [facility]. ID Date Data Source [id number] 09/15/2020 12:00:00 AM EST [facility] Name Value Range Interpretation Code Description Data Betsy rce(s) Supporting Document(s) 2018-nCoV RNA XXX CAROLYN+probe-Imp [facility] This lab was ordered by [facility] and reported by [employer] ID Date Data Source [id number] 08/14/2020 12:00:00 AM EDT [facility] Name Value Range Interpretation Code Description Data Betsy rce(s) Supporting Document(s) 2018-nCoV RNA XXX CRAOLYN+probe-Imp [facility] This lab was ordered by [facility] and reported by [employer] ID Date Data Source [id number] 07/22/2020 09:36:00 AM EDT [facility] ([facility]) Name Value Range Interpretation Code Description Data Betsy rce(s) Supporting Document(s) Calcidiol [Mass/volume] in Serum or Plasma 27.6 ng/mL 30.0- 100.0 Below low normal [facility] ([facility]) ID Date Data Source [id number] 07/22/2020 09:36:00 AM EDT [facility] ([facility]) Name Value Range Interpretation Code Description Data Betsy rce(s) Supporting Document(s) Thyroid Stimulating Hormone 2.310 uIU/ML 0.358-3.740 Norm al (applies to non- numeric results) [facility] ([facility]) Free T4 1.21 ng/dL 0.76-1.46 Normal (applies to non-numeric resul ts) [facility] ([facility]) ID Date Data Source [id number] 07/22/2020 09:36:00 AM EDT [facility] ([facility]) Name Value Range Interpretation Code Description Data Betsy rce(s) Supporting Document(s) Magnesium [Mass/volume] in Serum or Plasma 2.3 mg/dL 1.8-2 .4 Normal (applies to non-numeric results) [facility] ([facility]) ID Date Data Source [id number] 07/22/2020 09:36:00 AM EDT [facility] ([facility]) Name Value Range Interpretation Code Description Data Betsy rce(s) Supporting Document(s) Vitamin B12 Level 404 pg/mL Normal (applies to non-numeri c results) [facility] ([facility]) VITAMIN B12 NORMAL RANGE NORMAL 247 - 911 PG/ML INDETERMINATE 211 - 246 PG/ML DEFICIENT LESS THAN 211 PG/ML Folate 14.9 ng/mL Normal (applies to non-numeric resul ts) [facility] ([facility]) FOLATE NORMAL RANGE NORMAL GREATER THAN 5.4 NG/ML INDETERMINATE 3.4-5.4 NG/ML DEFICIENT LESS THAN 3.4 NG/ML ID Date Data Source [id number] 07/22/2020 09:36:00 AM EDT [facility] ([facility]) Name Value Range Interpretation Code Description Data Betsy rce(s) Supporting Document(s) Iron (Fe) 101 ug/dL 50-170 Normal (applies to non-numeric resul ts) [facility] ([facility]) Percent Saturation 24.3 % 13.2-45.0 Normal (applies to non-numer ic results) [facility] ([facility]) Total Iron Binding Capacity 416 ug/dL 250-450 Norm al (applies to non-numeric results) [facility] ([facility]) ID Date Data Source [id number] 07/22/2020 09:36:00 AM EDT [facility] ([facility]) Name Value Range Interpretation Code Description Data Betsy rce(s) Supporting Document(s) Ferritin [Mass/volume] in Serum or Plasma 120 ng/mL 8-252 Normal (applies to non-numeric results) [facility] ([facility]) ID Date Data Source [id number] 07/22/2020 09:36:00 AM EDT [facility] ([facility]) Name Value Range Interpretation Code Description Data Betsy rce(s) Supporting Document(s) Glucose, Fasting 104 mg/dL 70-100 Above high normal [facility] Glomerular Filtration Rate Laboratory test result Normal (applies to non- numeric results) [facility] ([facility]) <content>Units are mL/min/1.73 m2</content>
<content></content>
<content>Chronic Kidney Disease Staging per NKF:</content>
<content></content>
<content>Stage I & II GFR >=60 Normal to Mildly Decreased</content>
<content>Stage III GFR 30- 59 Moderately Decreased</content>
<content>Stage IV GFR 15-29 Severely Decreased</content>
<content>Stage V GFR <15 Very Little GFR Left</content>
<content>ESRD GFR <15 on SILK SCREEN PRINTER MACHINE</content>
<content></content> Blood Urea Nitrogen 18 mg/dL 7-18 Normal (applies to non-nume francheska results) [facility] ([facility]) Creatinine For GFR 0.77 mg/dL 0.55-1.30 Normal (applies to non -numeric results) [facility] ([facility]) Potassium Serum 4.3 meq/L 3.5-5.1 Normal (applies to non-numeric results) [facility] ([facility]) Sodium Level 138 meq/L 136-145 Normal (applies to non-numeric res ults) [facility] ([facility]) Carbon Dioxide Level 25 meq/L 21-32 Normal (applies to non-num jose m results) [facility] ([facility]) Anion Gap 6 meq/L 8-16 Below low normal [facility] ( [facility]) Chloride Level 107 meq/L 98-107 Normal (applies to non-numeric r esults) [facility] ([facility]) Ast/Sgot 9 U/L 7-37 Normal (applies to non-numeric resul ts) [facility] ([facility]) Calcium Level 9.0 mg/dL 8.5-10.1 Normal (applies to non-numeric re sults) [facility] ([facility]) Alt/SGPT 24 U/L 12-78 Normal (applies to non-numeric resul ts) [facility] ([facility]) Alkaline Phosphatase 56 U/L 45-117 Normal (applies to non-num jose m results) [facility] ([facility]) Bilirubin,Total 0.4 mg/dL 0.2-1.0 Normal (applies to non-numeric results) [facility] ([facility]) Total Protein 7.9 GM/DL 6.4-8.2 Normal (applies to non-numeric re sults) [facility] ([facility]) Albumin 3.9 GM/DL 3.2-5.2 Normal (applies to non-numeric resul ts) [facility] ([facility]) Albumin/Globulin Ratio 1.0 1.2-2.2 Below low normal [facility] ([facility]) ID Date Data Source [id number] 07/22/2020 09:36:00 AM EDT [facility] ([facility]) Name Value Range Interpretation Code Description Data Betsy rce(s) Supporting Document(s) Red Blood Count 4.73 10 4.00-5.40 Normal (applies to non-numeric results) [facility] ([facility]) White Blood Count 5.8 10 4.0-10.0 Normal (applies to non-numeri c results) [facility] ([facility]) Hemoglobin 14.2 g/dL 12.0-15.5 Normal (applies to non-numeric resul ts) [facility] ([facility]) Hematocrit 43.7 % 36.0-47.0 Normal (applies to non-numeric resul ts) [facility] ([facility]) Mean Corpuscular Volume 92.4 fl 80.0-96.0 Normal ( applies to non-numeric results) [facility] ([facility]) Mean Corpuscular HGB Conc 32.5 g/dL 32.0-36.5 Normal (applies to non-numeric results) [facility] ([facility]) Mean Corpuscular Hemoglobin 30.0 pg 27.0-33.0 Norm al (applies to non-numeric results) [facility] ([facility]) Neutrophils % 60.5 % 36.0-66.0 Normal (applies to non-numeric re sults) [facility] ([facility]) Red Cell Distribution Width 12.4 % 11.5-14.5 Norm al (applies to non-numeric results) [facility] ([facility]) Platelet Count, Automated 312 10 150-450 Normal (applies to non-numeric results) [facility] ([facility]) Sebastian % 10.1 % 0.0-5.0 Above high normal [facility] ([facility]) Lymph % 25.5 % 24.0-44.0 Normal (applies to non-numeric resul ts) [facility] ([facility]) Baso % 1.0 % 0.0-1.0 Normal (applies to non-numeric resul ts) [facility] ([facility]) Immature Granulocyte % 0.3 % 0-3.0 Normal (applies to non-n umeric results) [facility] ([facility]) Eos % 2.6 % 0.0-3.0 Normal (applies to non-numeric resul ts) [facility] ([facility]) Neutrophils # 3.5 10 1.5-8.5 Normal (applies to non-numeric re sults) [facility] ([facility]) Nucleated Red Blood Cell % 0.0 % 0-0 Normal (applies to n on-numeric results) [facility] ([facility]) Lymph # 1.5 10 1.5-5.0 Normal (applies to non-numeric resul ts) [facility] ([facility]) Sebastian # 0.6 10 0.0-0.8 Normal (applies to non-numeric resul ts) [facility] ([facility]) Eos # 0.2 10 0.0-0.5 Normal (applies to non-numeric resul ts) [facility] ([facility]) Baso # 0.1 10 0.0-0.2 Normal (applies to non-numeric resul ts) [facility] ([facility]) ID Date Data Source [id number] 04/02/2020 12:35:00 PM EDT [facility] ([facility]) Name Value Range Interpretation Code Description Data Betsy rce(s) Supporting Document(s) Respiratory Panel Laboratory test result [facility] ([facility]) This respiratory PCR panel detects Influ saige [...] - SARS-CoV-2 (COVID19) ID Date Data Source [id number] 02/18/2020 12:00:00 PM EDT [facility] ([facility]) Name Value Range Interpretation Code Description Data Betsy rce(s) Supporting Document(s) Bacteria identified in Urine by Culture Laboratory test result Normal (applies to non-numeric results) [facility] ([facility]) FULL REPORT IN LAB NOTES ([facility] and [facility] ). NO GROWTH CLINICAL SIGNIFICANCE 1 ORGANISM ID Date Data Source [id number] 02/18/2020 11:57:00 AM EDT [facility] ([facility]) Name Value Range Interpretation Code Description Data Betsy rce(s) Supporting Document(s) Inhouse Nitrite Laboratory test result [facility] ([facility]) Inhouse Leukocytes Laboratory test result [facility] ([facility]) Inhouse PH 5.0 [facility] ([facility]) Inhouse Urobilinogen Laboratory test result [facility] ([facility]) Inhouse Protein Laboratory test result [facility] ([facility]) Inhouse Specific Badger 1.005 [facility] ([facility]) Inhouse Ketones Laboratory test result [facility] ([facility]) Inhouse Hemoglobin Laboratory test result [facility] ([facility]) Inhouse Glucose Laboratory test result [facility] ([facility]) Inhouse Bilirubin Laboratory test result [facility] ([facility]) ID Date Data Source [id number] 02/03/2020 10:14:00 AM EDT [facility] ([facility]) Name Value Range Interpretation Code Description Data Betsy rce(s) Supporting Document(s) Glucose, Fasting 83 mg/dL 70-100 Normal (applies to non-numeric results) [facility] ([facility]) Blood Urea Nitrogen 9 mg/dL 7-18 Normal (applies to non-nume francheska results) [facility] ([facility]) Creatinine For GFR 0.65 mg/dL 0.55-1.30 Normal (applies to non -numeric results) [facility] ([facility]) Sodium Level 136 meq/L 136-145 Normal (applies to non-numeric res ults) [facility] ([facility]) Glomerular Filtration Rate Laboratory test result Normal (applies to non- numeric results) [facility] ([facility]) <content>Units are mL/min/1.73 m2</content>
<content></content>
<content>Chronic Kidney Disease Staging per NKF:</content>
<content></content>
<content>Stage I & II GFR >=60 Normal to Mildly Decreased</content>
<content>Stage III GFR 30- 59 Moderately Decreased</content>
<content>Stage IV GFR 15-29 Severely Decreased</content>
<content>Stage V GFR <15 Very Little GFR Left</content>
<content>ESRD GFR <15 on SILK SCREEN PRINTER MACHINE</content>
<content></content> Potassium Serum 4.6 meq/L 3.5-5.1 Normal (applies to non-numeric results) [facility] ([facility]) Carbon Dioxide Level 26 meq/L 21-32 Normal (applies to non-num jose m results) [facility] ([facility]) Chloride Level 106 meq/L 98-107 Normal (applies to non-numeric r esults) [facility] ([facility]) Anion Gap 4 meq/L 8-16 Below low normal [facility] ( [facility]) Calcium Level 9.2 mg/dL 8.5-10.1 Normal (applies to non-numeric re sults) [facility] ([facility]) Alt/SGPT 15 U/L 12-78 Normal (applies to non-numeric resul ts) [facility] ([facility]) Ast/Sgot 11 U/L 7-37 Normal (applies to non-numeric resul ts) [facility] ([facility]) Bilirubin,Total 0.7 mg/dL 0.2-1.0 Normal (applies to non-numeric results) [facility] ([facility]) Alkaline Phosphatase 76 U/L 45-117 Normal (applies to non-num jose m results) [facility] ([facility]) Total Protein 7.5 GM/DL 6.4-8.2 Normal (applies to non-numeric re sults) [facility] ([facility]) Albumin 4.0 GM/DL 3.2-5.2 Normal (applies to non-numeric resul ts) [facility] ([facility]) Albumin/Globulin Ratio 1.14 1.00-1.93 Normal (applies to non-numeric results) [facility] ([facility]) ID Date Data Source [id number] 02/03/2020 10:14:00 AM EDT [facility]) Name Value Range Interpretation Code Description Data Betsy rce(s) Supporting Document(s) Hemoglobin A1c 5.4 % Normal (applies to non-numeric r esults) [facility]) REFERENCE RANGES: 4.5-5.6% NORMAL 5.7-6.4% SUGGESTS IMPAIRED GLUCOSE META BOLISM >= 6.5% ABNORMAL Estimated Average Glucose 108 mg/dL 60-110 Normal (applies to non-numeric results) [facility] ([facility]) ID Date Data Source [id number] 11/12/2019 08:01:00 AM EST [facility]) Name Value Range Interpretation Code Description Data Betsy rce(s) Supporting Document(s) Hemoglobin A1c 5.4 % Normal (applies to non-numeric r esults) [facility] ([facility]) REFERENCE RANGES: 4.5-5.6% NORMAL 5.7-6.4% SUGGESTS IMPAIRED GLUCOSE META BOLISM >= 6.5% ABNORMAL Estimated Average Glucose 108 mg/dL 60-110 Normal (applies to non-numeric results) [facility] ([facility]) ID Date Data Source [id number] 11/12/2019 08:01:00 AM EST [facility] ([facility]) Name Value Range Interpretation Code Description Data Betsy rce(s) Supporting Document(s) Glucose, Fasting 78 mg/dL 70-100 Normal (applies to non-numeric results) [facility] ([facility]) Blood Urea Nitrogen 12 mg/dL 7-18 Normal (applies to non-nume francheska results) [facility] ([facility]) Glomerular Filtration Rate Laboratory test result Normal (applies to non- numeric results) [facility] ([facility]) <content>Units are mL/min/1.73 m2</content>
<content></content>
<content>Chronic Kidney Disease Staging per NKF:</content>
<content></content>
<content>Stage I & II GFR >=60 Normal to Mildly Decreased</content>
<content>Stage III GFR 30- 59 Moderately Decreased</content>
<content>Stage IV GFR 15-29 Severely Decreased</content>
<content>Stage V GFR <15 Very Little GFR Left</content>
<content>ESRD GFR <15 on SILK SCREEN PRINTER MACHINE</content>
<content></content> Creatinine For GFR 0.64 mg/dL 0.55-1.30 Normal (applies to non -numeric results) [facility] ([facility]) Potassium Serum 4.3 meq/L 3.5-5.1 Normal (applies to non-numeric results) [facility] ([facility]) Sodium Level 140 meq/L 136-145 Normal (applies to non-numeric res ults) [facility] ([facility]) Carbon Dioxide Level 26 meq/L 21-32 Normal (applies to non-num jose m results) [facility] ([facility]) Chloride Level 107 meq/L 98-107 Normal (applies to non-numeric r esults) [facility] ([facility]) Calcium Level 8.7 mg/dL 8.5-10.1 Normal (applies to non-numeric re sults) [facility] ([facility]) Anion Gap 7 meq/L 8-16 Below low normal [facility] ( [facility]) Ast/Sgot 9 U/L 7-37 Normal (applies to non-numeric resul ts) [facility] ([facility]) Alt/SGPT 15 U/L 12-78 Normal (applies to non-numeric resul ts) [facility] ([facility]) Alkaline Phosphatase 56 U/L 45-117 Normal (applies to non-num jose m results) [facility] ([facility]) Bilirubin,Total 0.5 mg/dL 0.2-1.0 Normal (applies to non-numeric results) [facility] ([facility]) Albumin 3.7 GM/DL 3.2-5.2 Normal (applies to non-numeric resul ts) [facility] ([facility]) Total Protein 7.0 GM/DL 6.4-8.2 Normal (applies to non-numeric re sults) [facility] ([facility]) Albumin/Globulin Ratio 1.12 1.00-1.93 Normal (applies to non-numeric results) [facility] ([facility]) Procedure Social History Code Duration Value Status Description Data Source(s ) Smoking 12/18/2019 12:00:00 AM EST Quit completed Quit [facility] ([facility]) Vital Signs ID Date Data Source UNK Name Value Range Interpretation Code Description Data Source(s) [place] body weight 110 [lb_av] 110 [lb_av] [facility] ([facility]) Oxygen saturation in Arterial blood by Pulse oximetry 99 % 99 % [facility] ([facility]) Body temperature 97.3 [degF] 97.3 [degF] [facility] ([facility]) Respiratory rate 20 /min 20 /min [facility] ( [facility]) Heart rate 94 /min 94 /min [facility] ([facility]) Body mass index (BMI) [Ratio] 29.8 kg/m2 29.8 k g/m2 [facility] ([facility]) Body weight 164.00 [lb_av] 164.00 [lb_av] [facility] ([facility]) Body height 62.25 [in_i] 62.25 [in_i] [facility] ([facility]) 5'2.25" Diastolic blood pressure 90 mm[Hg] 90 mm[Hg] [facility] ([facility]) Systolic blood pressure 124 mm[Hg] 124 mm[Hg] [facility] ([facility]) [place] body weight 110 [lb_av] 110 [lb_av] [facility] ([facility]) Oxygen saturation in Arterial blood by Pulse oximetry 99 % 99 % [facility] Body temperature 98.4 [degF] 98.4 [degF] [facility] ([facility]) Respiratory rate 18 /min 18 /min [facility] ( [facility]) Heart rate 113 /min 113 /min [facility] ([facility]) Body mass index (BMI) [Ratio] 27.6 kg/m2 27.6 k g/m2 [facility] ([facility]) Body weight 152.25 [lb_av] 152.25 [lb_av] [facility] ([facility]) Body height 62.25 [in_i] 62.25 [in_i] [facility] ([facility]) 5'2.25" Diastolic blood pressure 68 mm[Hg] 68 mm[Hg] [facility] ([facility]) Systolic blood pressure 118 mm[Hg] 118 mm[Hg] [facility] [place] body weight 110 [lb_av] 110 [lb_av] [facility] ([facility]) Oxygen saturation in Arterial blood by Pulse oximetry 99 % 99 % [facility] ([facility]) Body temperature 98.1 [degF] 98.1 [degF] [facility] ([facility]) Respiratory rate 18 /min 18 /min [facility] ( [facility]) Heart rate 110 /min 110 /min [facility] ([facility]) Body mass index (BMI) [Ratio] 27.7 kg/m2 27.7 k g/m2 [facility] ([facility]) Body weight 152.50 [lb_av] 152.50 [lb_av] [facility] ([facility]) Body height 62.25 [in_i] 62.25 [in_i] [facility] ([facility]) 5'2.25" Diastolic blood pressure 74 mm[Hg] 74 mm[Hg] [facility] ([facility]) Systolic blood pressure 124 mm[Hg] 124 mm[Hg] [facility] ([facility]) [place] body weight 110 [lb_av] 110 [lb_av] [facility] ([facility]) Oxygen saturation in Arterial blood by Pulse oximetry 100 % 100 % [facility] ([facility]) Body temperature 97.5 [degF] 97.5 [degF] [facility] ([facility]) Respiratory rate 16 /min 16 /min [facility] ( [facility]) Heart rate 97 /min 97 /min [facility] ([facility]) Body mass index (BMI) [Ratio] 26.5 kg/m2 26.5 k g/m2 [facility] ([facility]) Body weight 146.00 [lb_av] 146.00 [lb_av] [facility] ([facility]) Body height 62.25 [in_i] 62.25 [in_i] [facility] ([facility]) 5'2.25" Diastolic blood pressure 70 mm[Hg] 70 mm[Hg] [facility] ([facility]) Systolic blood pressure 102 mm[Hg] 102 mm[Hg] [facility] ([facility]) Oxygen saturation in Arterial blood by Pulse oximetry 95 % 95 % [facility] ([facility]) Body temperature 98.8 [degF] 98.8 [degF] [facility] ([facility]) Respiratory rate 18 /min 18 /min [facility] ( [facility]) Heart rate 102 /min 102 /min [facility] ([facility]) Body mass index (BMI) [Ratio] 25.4 kg/m2 25.4 k g/m2 [facility] ([facility]) Body weight 140.25 [lb_av] 140.25 [lb_av] [facility] ([facility]) Body height 62.25 [in_i] 62.25 [in_i] [facility] ([facility]) 5'2.25" Diastolic blood pressure 70 mm[Hg] 70 mm[Hg] [facility] ([facility]) Systolic blood pressure 114 mm[Hg] 114 mm[Hg] [facility] ([facility]) Oxygen saturation in Arterial blood by Pulse oximetry 98 % 98 % [facility] ([facility]) Body temperature 98.9 [degF] 98.9 [degF] [facility] ([facility]) Respiratory rate 20 /min 20 /min [facility] ( [facility]) Heart rate 129 /min 129 /min [facility] ([facility]) Body mass index (BMI) [Ratio] 24.7 kg/m2 24.7 k g/m2 [facility] ([facility]) Body weight 136.31 [lb_av] 136.31 [lb_av] [facility] ([facility]) Body height 62.25 [in_i] 62.25 [in_i] [facility] ([facility]) 5'2.25" Diastolic blood pressure 68 mm[Hg] 68 mm[Hg] [facility] ([facility]) Systolic blood pressure 110 mm[Hg] 110 mm[Hg] [facility] ([facility]) Oxygen saturation in Arterial blood by Pulse oximetry 96 % 96 % [facility] ([facility]) Body temperature 98.6 [degF] 98.6 [degF] [facility] ([facility]) Respiratory rate 18 /min 18 /min [facility] ( [facility]) Heart rate 110 /min 110 /min [facility] ([facility]) Body mass index (BMI) [Ratio] 25.1 kg/m2 25.1 k g/m2 [facility] ([facility]) Body weight 138.25 [lb_av] 138.25 [lb_av] [facility] ([facility]) Body height 62.25 [in_i] 62.25 [in_i] [facility] ([facility]) '." Diastolic blood pressure 84 mm[Hg] 84 mm[Hg] [facility] ([facility]) Systolic blood pressure 128 mm[Hg] 128 mm[Hg] [facility] ([facility]) Oxygen saturation in Arterial blood by Pulse oximetry 99 % 99 % [facility] ([facility]) Body temperature 98.0 [degF] 98.0 [degF] [facility] ([facility]) Heart rate 103 /min 103 /min [facility] ([facility]) Body mass index (BMI) [Ratio] 25.6 kg/m2 25.6 k g/m2 [facility] ([facility]) Body weight 141.00 [lb_av] 141.00 [lb_av] [facility] ([facility]) Body height 62.25 [in_i] 62.25 [in_i] [facility] ([facility]) " Diastolic blood pressure 82 mm[Hg] 82 mm[Hg] [facility] ([facility]) Systolic blood pressure 124 mm[Hg] 124 mm[Hg] [facility] ([facility]) Oxygen saturation in Arterial blood by Pulse oximetry 99 % 99 % [facility] ([facility]) Body temperature 98.2 [degF] 98.2 [degF] [facility] ([facility]) Respiratory rate 16 /min 16 /min [facility] ( [facility]) Heart rate 82 /min 82 /min [facility] ([facility]) Body mass index (BMI) [Ratio] 25.8 kg/m2 25.8 k g/m2 [facility] ([facility]) Body weight 142.00 [lb_av] 142.00 [lb_av] [facility] ([facility]) Body height 62.25 [in_i] 62.25 [in_i] [facility] ([facility]) 5'2.25" Diastolic blood pressure 68 mm[Hg] 68 mm[Hg] [facility] ([facility]) Systolic blood pressure 118 mm[Hg] 118 mm[Hg] [facility] ([facility]) Body weight 143.12 [lb_av] 143.12 [lb_av] WENDY Fajardo ([facility]) Body height 62.25 [in_i] 62.25 [in_i] [facility] ([facility]) 5'2.25" Diastolic blood pressure 72 mm[Hg] 72 mm[Hg] [facility] ([facility]) Systolic blood pressure 122 mm[Hg] 122 mm[Hg] Cynthia J[facility]NS[facility] ([facility]) Oxygen saturation in Arterial blood by Pulse oximetry 99 % 99 % [facility] ([facility]) Body temperature 97.6 [degF] 97.6 [degF] [facility] ([facility]) Respiratory rate 16 /min 16 /min [facility] ( [facility]) Heart rate 88 /min 88 /min [facility] ([facility]) Body mass index (BMI) [Ratio] 26.0 kg/m2 26.0 k g/m2 [facility] ([facility])
== END 2020-11-25 05:23 | disposition home or self-care (01) ==
LOC: M ED 03:02
DX: T22.112A Burn of first degree of left forearm, initial encounter (principal); T31.0 Burns involving less than 10% of body surface; V48.6XXA Car passenger injured in noncollision transport accident in traffic accident, initial encounter; Y92.9 Unspecified place or not applicable; Y93.9 Activity, unspecified; Y99.9 Unspecified external cause status; Z79.899 Other long term (current) drug therapy; Z88.1 Allergy status to other antibiotic agents; Z91.040 Latex allergy status

== ENCOUNTER → 2020-11-30 | Outpatient (CLI) | payer BC ==
[~2020-11-30] MED LIST changes: +CHAN1PAK13; +CLON1TAB8; +DULO1CAP6; +ESOM40CA35; +MYDA1CAP; +SUCR1ORA2
--- NOTE | 2020-11-30 12:14 | REP ---
INDICATION: PAIN IN RIGHT ANKLE AND JOINTS OF RIGHT FOOT. COMPARISON: None. TECHNIQUE: Four views of the right ankle. FINDINGS: Ankle mortise is intact. There is mild anterolateral soft tissue swelling. No fracture is seen. IMPRESSION: No fracture noted. Mild anterolateral swelling. <Electronically signed by Uri Chavarria > 11/30/20 [id number]
== END ==
LOC: M RAD 10:46
PROVIDERS: ATTEND Physician Assistant
DX: M25.571 Pain in right ankle and joints of right foot (principal)

== ENCOUNTER → 2021-04-06 | Outpatient (CLI) | payer BC ==
[2021-04-06 11:56] LABS: BASO # 0.1 10^3/uL (0.0-0.2); EOS # 0.2 10^3/uL (0.0-0.5); HEMATOCRIT 42.3 % (36.0-47.0); HEMOGLOBIN 13.5 g/dl (12.0-15.5); LYMPH # 1.7 10^3/uL (1.5-5.0); LYMPH % 25.3 % (24.0-44.0); MEAN CORPUSCULAR HEMOGLOBIN 29.1 pg (27.0-33.0); MEAN CORPUSCULAR HGB CONC 31.9 g/dl (32.0-36.5); MEAN CORPUSCULAR VOLUME 91.2 fl (80.0-96.0); MONO # 0.5 10^3/uL (0.0-0.8); MONO % 7.3 % (2.0-8.0); NEUTROPHILS # 4.3 10^3/uL (1.5-8.5); NEUTROPHILS % 63.1 % (36.0-66.0); PLATELET COUNT, AUTOMATED 353 10^3/uL (150-450); RED BLOOD COUNT 4.64 10^6/uL (4.00-5.40); WHITE BLOOD COUNT 6.7 10^3/uL (4.0-10.0)
[2021-04-06 13:59] LABS: ALBUMIN 3.7 GM/DL (3.2-5.2); ALT/SGPT 15 U/L (12-78); BILIRUBIN,TOTAL 0.4 MG/DL (0.2-1.0); BLOOD UREA NITROGEN 13 MG/DL (7-18); CALCIUM LEVEL 9.3 MG/DL (8.5-10.1); CARBON DIOXIDE LEVEL 28 MEQ/L (21-32); CHLORIDE LEVEL 106 MEQ/L (98-107); CREATININE FOR GFR 0.64 MG/DL (0.55-1.30); GLOMERULAR FILTRATION RATE > 60.0 (>58); GLUCOSE, FASTING 83 MG/DL (70-100); POTASSIUM SERUM 4.6 MEQ/L (3.5-5.1); SODIUM LEVEL 140 MEQ/L (136-145); TOTAL PROTEIN 7.1 GM/DL (6.4-8.2)
[2021-04-06 14:05] LABS: TOTAL 25(OH) VITAMIN D 22.9 NG/ML (30.0-100.0)
[2021-04-06 20:08] LABS: HEMOGLOBIN A1c 5.6 %
== END ==
LOC: M PLALAB 10:05
PROVIDERS: ATTEND Physician Assistant
DX: Z13.29 Encounter for screening for other suspected endocrine disorder (principal)

== ENCOUNTER → 2021-07-05 | Outpatient (CLI) | payer BC ==
[~2021-07-05] MED LIST changes: +PROHANCE 279.3MG/ML 15ML VIAL As Ordered ONE
--- NOTE | 2021-07-06 08:43 | REP ---
INDICATION: HIGH RISK BREAST CA (+) GENETICS. COMPARISON: Mammogram 10/18/2020, breast MRI 05/03/2018. TECHNIQUE: Three Cindy MRI imaging was performed with a dedicated breast coil. Axial, coronal, and sagittal T1 and T2 weighted scans were obtained with and without fat saturation in the usual fashion. The study includes dynamically acquired post gadolinium-enhanced imaging with image subtraction. Maximum intensity projection and multi planar reformation imaging is included as well. This study is interpreted with the aid of [employer], an FDA approved computer aided detection (CAD) software program, on a dedicated breast MRI workstation. The gadolinium enhancement dose is 15 mL of intravenous ProHance. FINDINGS: There is mild to moderate scattered fibroglandular tissue bilaterally. No axillary adenopathy is seen. There is a subcentimeter cyst in the inferomedial right breast there are few subcentimeter cysts scattered throughout the left breast. There is moderate background parenchymal enhancement bilaterally. There is no suspicious enhancing mass or morphologic abnormality. IMPRESSION: BI-RADS category 2, benign bilateral breast MRI. There are few scattered subcentimeter cysts bilaterally. There is no suspicious enhancing mass or morphologic abnormality. Yearly supplemental screening MRI of the breasts is recommended for patients with an elevated lifetime risk of breast cancer of 20% or greater, in addition to annual screening mammography, staggered every 6 months. <Electronically signed by Riley Bailey > 07/06/21 [id number]
== END ==
LOC: M RAD 15:41
PROVIDERS: ATTEND Physician Assistant
DX: Z12.39 Encounter for other screening for malignant neoplasm of breast (principal); Z15.01 Genetic susceptibility to malignant neoplasm of breast; N60.01 Solitary cyst of right breast; N60.12 Diffuse cystic mastopathy of left breast
CPT/HCPCS: A9576; C8908

== ENCOUNTER → 2021-07-22 | Outpatient (CLI) | payer BC ==
[~2021-07-22] MED LIST changes: -PROHANCE 279.3MG/ML 15ML VIAL As Ordered ONE; +VALT500T PO; +ZOFR4TAB16 PO
--- NOTE | 2021-07-22 15:50 | REP ---
INDICATION: PAIN IN RIGHT ANKLE AND JOINTS OF RIGHT FOOT COMPARISON: 11/30/2020. TECHNIQUE: Views right ankle. FINDINGS: There is no evidence of acute fracture, dislocation, or intrinsic bone disease.The ankle mortise is anatomic. There is mild lateral soft tissue swelling. There is a small dorsal spur of the navicular. IMPRESSION: Mild lateral soft tissue swelling. No acute osseous finding. <Electronically signed by Riley Bailey > 07/22/21 [id number]
== END ==
LOC: M PLALAB 14:20
PROVIDERS: ATTEND Physician Assistant
DX: M25.571 Pain in right ankle and joints of right foot (principal); M79.89 Other specified soft tissue disorders

== ENCOUNTER 2021-07-25 20:40 | Emergency (ER) | payer BC ==
[~2021-07-25] VITALS: Ht 154.9 cm; Wt 85.1 kg
[~2021-07-25 20:40] MED LIST changes: -VALT500T PO; -ZOFR4TAB16 PO
[2021-07-25] MEDS ORDERED: VALT500T PO (21:03)
[2021-07-25] MEDS ORDERED: ZOFR4TAB16 PO (21:06)
--- NOTE | 2021-07-26 00:21 | REPVR ---
PROCEDURE INFORMATION: Exam: CT Head Without Contrast Exam date and time: 07/25/2021 11:28 PM Age: 40 years old Clinical indication: Pain; Headache; Migraine; Additional info: Severe headache TECHNIQUE: Imaging protocol: Computed tomography of the head without contrast. Radiation optimization: All CT scans at this facility use at least one of these dose optimization techniques: automated exposure control; mA and/or kV adjustment per patient size (includes targeted exams where dose is matched to clinical indication); or iterative reconstruction. COMPARISON: CT Head without contrast 02/21/2019 7:31 PM FINDINGS: Brain: There is no CT evidence for an acute large vessel territorial infarct. No acute intracranial hemorrhage is seen. No mass, mass effect, midline shift, or herniation is noted. The cortical gyration pattern, basal ganglia, thalami, brainstem, and cerebellum are normal in appearance. Cerebral ventricles: Normal. No hydrocephalus. Paranasal sinuses: The imaged portions of the sinuses are well aerated. No air-fluid levels are noted in the sinuses. Mastoid air cells: The mastoid air cells are well aerated. Bones/joints: The skull is intact. No suspicious osteolytic or osteoblastic lesion. Soft tissues: Unremarkable. No soft tissue fluid collection. IMPRESSION: No acute intracranial abnormality. Electronically signed by: Jozef De Jesus On 07/26/2021 00:20:51 AM
[2021-07-26] MEDS ORDERED: NS 1,000 ML IV ONE (01:20)
[2021-07-26] MEDS ORDERED: KETOROLAC 30 MG/ML 1ML VIAL IV ONE (01:20)
[2021-07-26] MEDS ORDERED: diphenhydrAMINE 50MG/ML VIAL (J1200) IV ONE (01:20)
[2021-07-26] MEDS ORDERED: METOCLOPRAMIDE INJ 10MG/2ML VIAL (J2765 PER 1) IV ONE (01:20)
[2021-07-26 03:30] VITALS: BP 107/60
[2021-07-27] MEDS ORDERED: ERGO500029 PO (05:06)
[2021-07-27] MEDS ORDERED: DULO30CA47 PO (05:06)
[2021-07-27] MEDS ORDERED: ONDA-83 PO (05:06)
[2021-07-27] MEDS ORDERED: SUMA50TA2 PO (05:06)
[2021-07-27] MEDS ORDERED: VALT500T PO (05:06)
[2021-07-27] MEDS ORDERED: NORT25CA2 PO (05:06)
[2021-07-27] MEDS ORDERED: ESOM1CAP5 PO (05:06)
[2021-07-27] MEDS ORDERED: MYDA1CAP PO (05:06)
== END 2021-07-26 04:06 | disposition home or self-care (01) ==
LOC: M ED 20:40
DX: G43.909 Migraine, unspecified, not intractable, without status migrainosus (principal); Z86.73 Personal history of transient ischemic attack (TIA), and cerebral infarction without residual deficits; F17.200 Nicotine dependence, unspecified, uncomplicated; Z79.899 Other long term (current) drug therapy; Z91.040 Latex allergy status; Z88.1 Allergy status to other antibiotic agents
CPT/HCPCS: 70450; 96361; 96374; 96375; 99285; J1200; J1885; J2765

== ENCOUNTER 2021-07-26 20:48 | Inpatient (IN) | payer BC ==
[~2021-07-26] VITALS: Ht 154.9 cm; Wt 84.5 kg
[~2021-07-26 20:48] MED LIST changes: -DULO30CA47 PO; -ERGO500029 PO; -ESOM1CAP5 PO; -NORT25CA2 PO; -ONDA-83 PO
[2021-07-27] MEDS ORDERED: KETOROLAC 30 MG/ML 1ML VIAL IV ONE ×2 (01:05→01:15)
[2021-07-27] MEDS ORDERED: NS 1,000 ML IV ONE ×2 (01:10→01:15)
[2021-07-27] MEDS ORDERED: METOCLOPRAMIDE INJ 10MG/2ML VIAL (J2765 PER 1) IV ONE (01:15)
[2021-07-27] MEDS ORDERED: diphenhydrAMINE 50MG/ML VIAL (J1200) IV STA (01:19)
[2021-07-27 01:47] LABS: HEMATOCRIT 31.8 % (36.0-47.0); HEMOGLOBIN 10.4 g/dl (12.0-15.5); MEAN CORPUSCULAR HEMOGLOBIN 28.7 pg (27.0-33.0); MEAN CORPUSCULAR HGB CONC 32.7 g/dl (32.0-36.5); MEAN CORPUSCULAR VOLUME 87.8 fl (80.0-96.0); PLATELET COUNT, AUTOMATED 244 10^3/uL (150-450); RED BLOOD COUNT 3.62 10^6/uL (4.00-5.40)
[2021-07-27 01:54] LABS: WHITE BLOOD COUNT 32.1 10^3/uL (4.0-10.0)
[2021-07-27] MEDS ORDERED: NS 1,530 ML in IV 1 EA IV ONE (02:05)
[2021-07-27 02:12] LABS: C REACTIVE PROTEIN QUANTITATIV 14.3 MG/DL (0.00-0.30)
[2021-07-27 02:14] LABS: ERYTHROCYTE SEDIMENTATION RATE 63 mm/hr (0-20)
[2021-07-27 02:33] LABS: LYMPHOCYTES 5 % (16-44); MONOCYTES 2 % (0-5); NEUTROPHILS 91 % (28-66); PLATELET ESTIMATE NORMAL (NORMAL)
[2021-07-27 02:34] LABS: PLATELET CLUMPS SMALL AMT
[2021-07-27 02:34] LABS: HEMOGLOBIN 9.4 g/dl (12.0-15.5); MEAN CORPUSCULAR HEMOGLOBIN 28.7 pg (27.0-33.0); MEAN CORPUSCULAR HGB CONC 32.4 g/dl (32.0-36.5); MEAN CORPUSCULAR VOLUME 88.4 fl (80.0-96.0); PLATELET COUNT, AUTOMATED 232 10^3/uL (150-450); RED BLOOD COUNT 3.28 10^6/uL (4.00-5.40)
[2021-07-27 02:35] LABS: WHITE BLOOD COUNT 30.6 10^3/uL (4.0-10.0)
[2021-07-27 02:48] LABS: RSV AMPLIFICATION NEGATIVE (NEGATIVE)
--- NOTE | 2021-07-27 04:30 | REPVR ---
PROCEDURE INFORMATION: Exam: XR Chest Exam date and time: 07/27/21 (2:42am) Age: 40 years old Clinical indication: Fever unknown TECHNIQUE: Imaging protocol: XR of the chest Views: 2 views COMPARISON: Chest films of 08/11/19 FINDINGS: Lungs: Unremarkable. No consolidation. Pleural spaces: Unremarkable. No pleural effusions. No pneumothorax. Heart/Mediastinum: Unremarkable. No cardiomegaly. Bones/joints: Unremarkable. Other findings: Bilateral nipple piercings. Probably S/P cholecystectomy. IMPRESSION: No acute findings. Clear lung landis. Electronically signed by: Susie Renteria On 07/27/2021 04:29:40 AM
[2021-07-27] MEDS ORDERED: cefTRIAXone SOD 2 GM in D5W MINI-BAG PLUS 50 ML IV ONE (04:50)
[2021-07-27] MEDS ORDERED: SUMA50TA2 PO (05:06)
[2021-07-27] MEDS ORDERED: ERGO500029 PO (05:06)
[2021-07-27] MEDS ORDERED: NORT25CA2 PO (05:06)
[2021-07-27] MEDS ORDERED: DULO30CA47 PO (05:06)
[2021-07-27] MEDS ORDERED: MYDA1CAP PO (05:06)
[2021-07-27] MEDS ORDERED: VALT500T PO (05:06)
[2021-07-27] MEDS ORDERED: ESOM1CAP5 PO (05:06)
[2021-07-27] MEDS ORDERED: ONDA-83 PO (05:06)
[2021-07-27 05:09] LABS: APPEARANCE, CSF CLEAR (CLEAR); COLOR, CSF COLORLESS (COLORLESS); CSF TUBE# CELL CNT TUBE 1; CSF TUBE# CELL CNT TUBE 4
[2021-07-27] MEDS ORDERED: HOME MED LIST COMPLETE! XX SCH (05:10)
[2021-07-27 05:21] LABS: GLUCOSE CSF 56 MG/DL (40-75); TOTAL PROTEIN,CSF 28 MG/DL (15-45)
[2021-07-27 05:27] LABS: CSF TUBE# GLU TUBE 3
[2021-07-27 05:28] LABS: CSF TUBE# TP TUBE 3
[2021-07-27] MEDS ORDERED: MAALOX 30 ML SUSP *UDC PO PRN (05:35)
[2021-07-27] MEDS ORDERED: MOM 30ML SUSPENSION UDC PO PRN (05:35)
[2021-07-27] MEDS ORDERED: SUMAtriptan SUCCINATE 25 MG TAB PO PRN (05:40)
[2021-07-27] MEDS ORDERED: ONDANSETRON 4 MG TAB PO PRN (05:40)
--- NOTE | 2021-07-27 05:46 | HPEPDOC ---
[facility] Medical History & Physical Date of Admission Jul 27, 2021 Date of Service: Jul 27, 2021 History and Physical CHIEF COMPLAINT: Headache HISTORY OF PRESENT ILLNESS: 40-year-old female with a past medical history of CVA, C. 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 Patient does endorse persistent nausea and vomiting since the onset of the headache. She reports having fevers at home ~102F. She was seen in her primary care office where she was prescribed Reglan and Toradol. Patient was last seen in the ER 07/26/2021 for the same complaint and received a CT head without contrast which showed no acute abnormality. Patient is afebrile upon presentation, but is noted to have a WBC 32.1. ESR 63. CRP 14.30. Lumbar puncture was performed in ER, without opening pressures. CSF fluid appears clear, colorless. WBC 9. CSF Gluc 56. Total protein. PAST MEDICAL HISTORY: Migraines Diallo's esophagus (follows with Dr. Cobian) Oral HSV C diff colitis ADHD PAST SURGICAL HISTORY: Cholecystectomy 2001 HYSTERECTOMY 2009 T&A 1988 RIGHT KNEE SURGERYX2 ENDOMETRIAL ABLATION/TUBAL 2008 BLADDER SLING PROCEDURE SOCIAL HISTORY: Active smoker, half a pack per day Patient denies etoh use Patient denies illicit drug use FAMILY HISTORY: FATHER: ALIVE 68 YRS, HTN, [place], STROKE, DIABETES MOTHER: ALIVE 61 YRS, UTERINE CANCER SIBLINGS: ALIVE SON(S): ALIVE, ASTHMA, ANXIETY DAUGHTER(S): ALIVE, MIGRAINE, SEIZURE DISORDER MATERNAL GRAND FATHER: FACTOR V LEIDEN DEFICIENCY MATERNAL GRAND MOTHER: BREAST CANCER 1 BROTHER(S) , 2 SISTER(S) - HEALTHY. 2 SON(S) , 2 DAUGHTER(S) - HEALTHY. POSITIVE FOR NEPHROLITHIASIS IN HER SISTER. ALLERGIES: Please see below. REVIEW OF SYSTEMS: 10 point ROS conducted, relevant findings are noted in HPI. HOME MEDICATIONS: Please see below. PHYSICAL EXAMINATION: VITAL SIGNS: please see below General: NAD, comfortable HEENT: PERRLA, EOMI, sclerae clear, no nuchal rigidity, negative kernig and brudzinki Neck: supple, normal ROM, no JVD Respiratory: lungs CTAB, no wheeze, no rales, no crackles CVS: RRR, normal S1, S2, no murmurs Abdo: soft, no masses, no hepatosplenomegaly, BS+, no rebound tenderness Extremities: no edema, pulses 2+ MSK: no joint deformities, normal ROM Neuro: no focal neuro deficits, moving all 4 extremities, CN2-12 intact. Strength 5/5 in all 4 extremities. No nystagmus. Psych: calm, cooperative, AAO x 3 LABORATORY DATA: See below. IMAGING: CXR (07/27/21): IMPRESSION: No acute findings. Clear lung landis. MICROBIOLOGY: Please see below. ASSESSMENT: 40-year-old female with a past medical history of CVA, C. 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 ADmitted for concern over aseptic meningitis. Started empi francheska abx while CSF analysis pending. . PLAN: Severe L parietal headache, concern aseptic meningitis - Afebrile in ER. WBC 32.1. - CSF panel showing protein 28, GLu 56, WBC 9. Prelim studies suggest viral - CSF PCR panel pending - empiric ceftriaxone started. Resistance rate > 1%, added vancomycin - ordered MRI brain w and wo contrast Migraines - resume home regimen - follows with PCP GERD - PPI Dispo: pending clinical improvement. Vital Signs Vital Signs Date Time Temp Pulse Resp B/P (MAP) Pulse Ox O2 Delivery O2 Flow Rate FiO2 07/27/21 03:22 97.3 83 16 106/63 (77) 99 07/26/21 20:49 Room Air Laboratory Data Labs 24H Laboratory Tests 2 07/27/21 01:21: Coronavirus (COVID-19)(PCR) NEGATIVE, Influenza Type A (RT-PCR) NEGATIVE, Influenza Type B (RT-PCR) NEGATIVE, Respiratory Syncytial Virus (PCR) NEGATIVE 07/27/21 01:24: Neutrophils (%) (Auto) , Nucleated Red Blood Cells % (auto) 0.0, Neutrophils 91H, Band Neutrophils 2, Lymphocytes (Manual) 5L, Monocytes (Manual) 2, Platelet Estimate NORMAL, Clumped Platelets SMALL AMT, Erythrocyte Sedimentation Rate 63H, C-Reactive Protein, Quantitative 14.30H 07/27/21 01:50: POC Glucose (Misc Panel) 110H, POC Sodium (Misc Panel) 138, POC Potassium (Misc Panel) 3.9, POC Chloride (Misc Panel) 104, POC Total CO2 (Misc Panel) 22.0L, POC Blood Urea Nitrogen (Misc Panel 9, POC Ionized Calcium (Misc Panel) 4.7, POC Creatinine (Misc Panel) 0.7, POC Hematocrit (Misc Panel) 30.0L 07/27/21 02:09: Nucleated Red Blood Cells % (auto) 0.0, Lactic Acid Level 0.9 07/27/21 04:49: CSF Appearance CLEAR, CSF Color COLORLESS, CSF WBC (Auto) 10, CSF RBC (Auto) < 2H, CSF Glucose (Tube 1) TUBE 3, CSF Total Protein (Tube 1) TUBE 3, CSF Cell Count Tube # TUBE 4, CSF Polynuclear WBCs (%) , CSF Glucose 56, CSF Total Protein 28 CBC/BMP Laboratory Tests 07/27/21 01:24 07/27/21 02:09 Microbiology Microbiology 07/27/21 Gram Stain, Received Pending 07/27/21 CSF Culture, Received Pending 07/27/21 , Received Pending 07/27/21 Blood Culture, Received Pending 07/27/21 Blood Culture, Received Pending Home Medications Scheduled Dextroamphetamine/Amphetamine (Mydayis ER 50 mg Capsule) 50 Mg Cptp.24hr, 1 CAP PO DAILY Duloxetine HCl (Duloxetine HCl) 30 Mg Capsule.dr, 30 MG PO QHS Ergocalciferol (Vitamin D2) (Vitamin D2) 50,000 Units Cap, 50,000 UNITS PO QWEEK Esomeprazole Magnesium (Esomeprazole Magnesium) 40 Mg Capsule.dr, 40 MG PO QHS Fidaxomicin (Dificid) 200 Mg Tablet, 200 MG PO BID Nortriptyline HCl (Nortriptyline HCl) 25 Mg Capsule, 25 MG PO QHS Valacyclovir HCl (Valacyclovir) 500 Mg Tablet, 1,000 MG PO TID Scheduled PRN Ondansetron HCl (Ondansetron HCl) 4 Mg Tablet, 8 MG PO Q6H PRN for NAUSEA OR VOMITING Sumatriptan Succinate (Sumatriptan Succinate) 50 Mg Tablet, 50 MG PO BID PRN for MIGRAINE Allergies Coded Allergies: erythromycin base (Unverified Allergy, Mild, RASH, 10/4/21) PER PATIENT, SHE HAS NOT TAKEN IT THAT SHE CAN REMEMBER. MOTHER TOLD HER SHE GETS A RASH latex (Verified Allergy, Mild, RASH, 07/26/21) A-FIB/CHADSVASC A-FIB History Current/History of A-Fib/PAF?: No ANIBAL HORN MD Jul 27, 2021 05:46
[2021-07-27] MEDS ORDERED: VANCOMYCIN HCL 1,000 MG, VIAL MATE ADAPTER 1 EACH in NS 250 ML IV ONE (06:00)
[2021-07-27] MEDS: ACETAMINOPHEN TAB 650MG DOSE (2X325MG) PO PRN ×3 (06:33→22:19)
[2021-07-27] MEDS ORDERED: VANCOMYCIN HCL 750 MG, VIAL MATE ADAPTER 1 EACH in NS 250 ML IV ONE (07:00)
[2021-07-27 08:00] VITALS: BP 112/77
[2021-07-27] MEDS: PANTOPRAZOLE 40MG TAB (PROTONIX) PO SCH (08:24)
[2021-07-27 10:19] LABS: FOLATE 12.4 NG/ML (>5.4)
[2021-07-27] MEDS ORDERED: PROHANCE 279.3MG/ML 15ML VIAL As Ordered ONE (10:44)
[2021-07-27] MEDS: KETOROLAC 30 MG/ML 1ML VIAL IV PRN ×2 (11:50→17:56)
--- NOTE | 2021-07-27 11:53 | REPVR ---
PROCEDURE INFORMATION: Exam: MR Head Without and With Contrast Exam date and time: 07/27/2021 11:26 AM Age: 40 years old Clinical indication: Pain; Other: Vomiting / headaches; Headache not specified; Additional info: Severe parietal headache TECHNIQUE: Imaging protocol: MR of the head without and with intravenous contrast. Contrast material: PROHANCE; Contrast volume: 15 ml; Contrast route: INTRAVENOUS (IV); COMPARISON: CT Head without contrast 07/25/2021 11:34 PM FINDINGS: Brain: There is no extra-axial collection or intra-axial mass. There is focal T2/FLAIR white matter hyperintensity abutting the right frontal horn, nonspecific. Normal parenchymal signal is otherwise preserved. There is no abnormal enhancement. Cerebral ventricles: Normal. No ventriculomegaly. Bones/joints: Unremarkable. Paranasal sinuses: There is mild ethmoid mucosal thickening. There is focal polypoid mucosal thickening within the left sphenoid sinus. Mastoid air cells: There is fluid within left mastoid air cells. Orbital cavity: Unremarkable. Soft tissues: Unremarkable. IMPRESSION: 1. No acute intracranial abnormality. 2. Isolated T2/FLAIR hyperintensity abutting the right frontal horn, nonspecific. This could reflect small vessel ischemia, focal demyelination or sequela of migraine headaches Electronically signed by: Lesa Peacock On 07/27/2021 11:53:25 AM
[2021-07-27 13:36] LABS: FERRITIN 252 NG/ML (8-252)
[2021-07-27] MEDS: NS 1,000 ML IV SCH ×2 (13:50→23:36)
[2021-07-27 14:21] LABS: HIV 1&2 SCREEN CENTAUR NEGATIVE (NEGATIVE)
[2021-07-27 16:00] VITALS: BP 125/63
[2021-07-27] MEDS ORDERED: VANCOMYCIN HCL 1,000 MG, VIAL MATE ADAPTER 1 EACH in NS 250 ML IV SCH (16:00)
[2021-07-27] MEDS ORDERED: cefTRIAXone SOD 2 GM in D5W MINI-BAG PLUS 50 ML IV SCH (17:00)
[2021-07-27 20:00] VITALS: BP 160/96
[2021-07-27] MEDS: METOCLOPRAMIDE INJ 10MG/2ML VIAL (J2765 PER 1) IV PRN (20:13)
[2021-07-27] MEDS ORDERED: valACYclovir HCL 500 MG TAB PO SCH (21:00)
[2021-07-27] MEDS ORDERED: NORTRIPTYLINE 25 MG CAP PO SCH (21:00)
[2021-07-27] MEDS ORDERED: MORPHINE 2 MG/ML 1ML VIAL (J2270) IV ONE (21:05)
[2021-07-27] MEDS: DULoxetine 30MG CAPSULE (CYMBALTA) PO SCH (21:59)
[2021-07-28] VITALS: BP 110/59
[2021-07-28 04:00] VITALS: BP 112/64
[2021-07-28] MEDS: cefTRIAXone SOD 2 GM in D5W MINI-BAG PLUS 50 ML IV SCH (05:15)
[2021-07-28 05:59] LABS: BASO # 0.1 10^3/uL (0.0-0.2); BASO % 0.3 % (0.0-1.0); EOS # 0.1 10^3/uL (0.0-0.5); EOS % 0.7 % (0.0-3.0); HEMATOCRIT 27.2 % (36.0-47.0); LYMPH # 1.7 10^3/uL (1.5-5.0); LYMPH % 8.6 % (24.0-44.0); MEAN CORPUSCULAR HEMOGLOBIN 28.8 pg (27.0-33.0); MEAN CORPUSCULAR HGB CONC 33.1 g/dl (32.0-36.5); MEAN CORPUSCULAR VOLUME 87.2 fl (80.0-96.0); MONO # 0.9 10^3/uL (0.0-0.8); MONO % 4.3 % (2.0-8.0); NEUTROPHILS # 17.1 10^3/uL (1.5-8.5); NEUTROPHILS % 85.3 % (36.0-66.0); PLATELET COUNT, AUTOMATED 175 10^3/uL (150-450); RED BLOOD COUNT 3.12 10^6/uL (4.00-5.40); WHITE BLOOD COUNT 20.1 10^3/uL (4.0-10.0)
[2021-07-28 06:18] LABS: BLOOD UREA NITROGEN 8 MG/DL (7-18); CALCIUM LEVEL 7.6 MG/DL (8.5-10.1); CARBON DIOXIDE LEVEL 25 MEQ/L (21-32); CHLORIDE LEVEL 111 MEQ/L (98-107); GLOMERULAR FILTRATION RATE > 60.0 (>58); GLUCOSE, FASTING 85 MG/DL (70-100); POTASSIUM SERUM 3.9 MEQ/L (3.5-5.1); SODIUM LEVEL 140 MEQ/L (136-145)
[2021-07-28 08:00] VITALS: BP 134/78
[2021-07-28] MEDS ORDERED: METOCLOPRAMIDE INJ 10MG/2ML VIAL (J2765 PER 1) IV ONE (08:00)
[2021-07-28] MEDS ORDERED: FIORICET TAB PO ONE (08:00)
[2021-07-28] MEDS ORDERED: KETOROLAC 30 MG/ML 1ML VIAL IV ONE (08:00)
[2021-07-28] MEDS: PANTOPRAZOLE 40MG TAB (PROTONIX) PO SCH (08:26)
[2021-07-28 12:00] VITALS: BP 124/75
--- NOTE | 2021-07-28 12:05 | IPN ---
PROGRESS NOTE DATE: 07/28/2021 SUBJECTIVE: Patient still complains of diffuse headache without photophobia. She complains of some neck stiffness when she touches her chin to her chest and her knees to her chest. She denies any paresthesias, upper or lower extremity weakness, denies any changes in vision. No nausea or vomiting. Patient had a maximum temperature of 101.1 at 2219 yesterday. CSF fluid gram stain showed no organisms and no cells seen. Still on Vancomycin and Ceftriaxone. The patient's appetite was poor yesterday and she was not taking too much liquids and has been placed on intravenous fluids. OBJECTIVE: VITAL SIGNS: T-max 101.1, current temperature 98.9, pulse 99, sinus rhythm, respiratory rate 18, blood pressure 112/64, 96% on room air. GENERAL: Patient is awake, alert and oriented to person, place and time answering questions appropriately in no distress. HEENT: Pupils equally round and reactive to light and accommodation. Extraocular muscles are intact. Moist mucous membranes. NECK: No JVD or thyromegaly, stridor, cervical lymphadenopathy or pharyngeal erythema. LUNGS: Clear to auscultation. No wheezing, rales or rhonchi. HEART: S1 and S2, sinus tachycardia. No S3. No carotid bruit, nondisplaced point of maximal impulse. ABDOMEN: Soft, nontender and nondistended, positive bowel sounds. EXTREMITIES: No cyanosis, clubbing or pitting edema. NEUROLOGIC: Patient has positive Kernig and Brudzinski signs. She has no photophobia. Motor function is 5/5 x4 extremities. No sensory disturbance. No dysmetria on finger to nose testing. No pronator drift. Tongue and uvula are midline. Speech is fluent, face is symmetric. Negative Babinski bilaterally. LABORATORY DATA/IMAGING STUDIES/MICROBIOLOGY: Have been reviewed. ASSESSMENT AND PLAN: This is a 40-year-old female with a history of CVA, migraines, Diallo's esophagus, oral HSV, C. Diff colitis, ADHD, admitted on July 27 with complaints of headache for three days, left sided, parietal, without photophobia, blurred vision, or focal numbness or weakness with persistent nausea and vomiting with a fever of 102 at home. Patient was found to have a white blood cell count of 32.1, status post lumbar puncture with CSF fluid being clear colorless with WBC of 9, CSF glucose of 56. Patient was started on Vancomycin and Ceftriaxone for presumed meningitis. CSF fluid and gram stain obtained. No organism seen. Infectious Disease specialist, Dr. Ana Hills has been consulted. IMPRESSION: 1. Aseptic meningitis. Patient had a T-max of 101, white count improved from 32,000 to 20,000 with Ceftriaxone and Vancomycin. CSF culture is still pending. Dr. Ana Hills has been consulted to help in management. Check for immunocompromised state with HIV screen. 2. Migraines with history of CVA, avoid triptans in patients with small vessel ischemic disease and history of CVA, therefore the patient has been given as needed Toradol and Reglan. 3. 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 4. ADHD, resumed on home medications. 5. History of Diallo's esophagus. 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
[2021-07-28] MEDS: GASTROGRAFIN SOLUTION 30ML PO SCH ×2 (14:48→15:17)
[2021-07-28] MEDS ORDERED: ISOVUE-370 76% 100ML VIAL As Ordered ONE (15:56)
[2021-07-28 16:00] VITALS: BP 140/92
--- NOTE | 2021-07-28 16:50 | REP ---
INDICATION: leukocytosis, diarrhea. COMPARISON: 07/01/2014 the latest prior TECHNIQUE: Standard helical technique after the intravenous administration of 100 cc Isovue 370 and oral bowel preparatory contrast administration. FINDINGS: There are tiny bilateral pleural effusions and curvilinear bibasilar densities consistent with subsegmental atelectatic change. The liver, spleen, pancreas, adrenal glands, and kidneys are within normal limits. The abdominal aorta and para aortic regions are within normal limits. The bowel loops and the mesenteries are within normal limits. There is no free fluid or free air. In the left adnexa there is a 2.5 cm sized wall enhancing low-density structure which appears to be of ovarian origin. I have been given history of hysterectomy but not over ectomy. The osseous structures stable and intact. IMPRESSION: Likely small decompressing left ovarian cyst, however, this abuts the sigmoid colon similar to that seen on the prior exam. Follow-up is suggested. The examination is otherwise unremarkable. <Electronically signed by Andrea Epperson > 07/28/21 [id number]
[2021-07-28 17:07] LABS: Lyme Disease IgG/IgM Antibodie <0.91 ISR (0.00-0.90); Lyme Disease IgM Ab Quantitati <0.80 index (0.00-0.79)
--- NOTE | 2021-07-28 17:59 | IPNPDOC ---
Date Seen The patient was seen on 07/28/21. Progress Note addendum to progress note: gi panel: cdiff and E coli plan: contact precautions po vanco. VS, I&O, 24H, Fishbone Vital Signs/I&O Vital Signs Date Time Temp Pulse Resp B/P (MAP) Pulse Ox O2 Delivery O2 Flow Rate FiO2 07/28/21 16:00 97.9 82 20 140/92 (108) 95 Room Air I&O- Last 24 Hours up to 6 AM 07/28/21 06:00 Intake Total 2440 ml Output Total 1300 ml Balance 1140 ml Laboratory Data 24H LABS Laboratory Tests 2 07/28/21 05:36: Immature Granulocyte % (Auto) 0.8, Neutrophils (%) (Auto) 85.3H, Lymphocytes (%) (Auto) 8.6L, Monocytes (%) (Auto) 4.3, Eosinophils (%) (Auto) 0.7, Basophils (%) (Auto) 0.3, Neutrophils # (Auto) 17.1H, Lymphocytes # (Auto) 1.7, Monocytes # (Auto) 0.9H, Eosinophils # (Auto) 0.1, Basophils # (Auto) 0.1, Nucleated Red Blood Cells % (auto) 0.0, Anion Gap 4L, Glomerular Filtration Rate > 60.0, Calcium Level 7.6L CBC/BMP Laboratory Tests 07/28/21 05:36 Microbiology Microbiology 07/28/21 Blood Culture, Received Pending 07/28/21 Blood Culture, Received Pending 07/28/21 Gastrointestinal Tract Panel (PCR) - Final, Complete Clostridium Difficile A/B Enteropathogenic E.coli 07/27/21 Gram Stain - Final, Resulted 07/27/21 CSF Culture, Resulted Pending 07/27/21 - Final, Complete 07/27/21 Blood Culture - Preliminary, Resulted No growth after 24 hours . All specim... 07/27/21 Blood Culture - Preliminary, Resulted MARILEE NUNEZ MD Jul 28, 2021 17:59
[2021-07-28] MEDS: VANCOMYCIN ORAL SOL 250MG/5ML ORAL SYRINGE PO SCH (19:59)
[2021-07-28] MEDS: KETOROLAC 30 MG/ML 1ML VIAL IV PRN (19:59)
[2021-07-28 20:00] VITALS: BP 134/80
[2021-07-28] MEDS: DULoxetine 30MG CAPSULE (CYMBALTA) PO SCH (20:28)
[2021-07-28] MEDS: NORTRIPTYLINE 25 MG CAP PO SCH (20:29)
[2021-07-28] MEDS ORDERED: valACYclovir HCL 500 MG TAB PO SCH (21:00)
[2021-07-29] VITALS: BP 129/85
[2021-07-29] MEDS: VANCOMYCIN ORAL SOL 250MG/5ML ORAL SYRINGE PO SCH ×4 (00:51→20:29)
[2021-07-29 04:00] VITALS: BP 129/86
[2021-07-29] MEDS: cefTRIAXone SOD 2 GM in D5W MINI-BAG PLUS 50 ML IV SCH (05:15)
--- NOTE | 2021-07-29 07:57 | IPNPDOC ---
Date Seen The patient was seen on 07/29/21. Progress Note SUBJECTIVE: has had 3-4 diarrhea for the past 2 years. prior h/o cdiff, sees [facility] for IBS and Diallo's. pcr + cdiff yesterday. on contact isolation, and po vanco. no c/o n/v/abd pain. neck stiff ness improved. no c/o cough,s ob. blood cx: grm + cocci . denies chills. OBJECTIVE: VITAL SIGNS:see below GENERAL:no distress. HEENT: Pupils equally round and reactive to light and accommodation. Extraocular muscles are intact. Moist mucous membranes. NECK: No JVD or thyromegaly, stridor, cervical lymphadenopathy or pharyngeal erythema.no carotid bruits LUNGS: Clear to auscultation. No wheezing, rales or rhonchi. HEART: S1 and S2, sinus tachycardia. No S3. No carotid bruit, nondisplaced point of maximal impulse. ABDOMEN: Soft, nontender and nondistended, positive bowel sounds. EXTREMITIES: No cyanosis, clubbing or pitting edema. NEUROLOGIC: Motor function is 5/5 x4 extremities. No sensory disturbance. No dysmetria on finger to nose testing. No pronator drift. Tongue and uvula are midline. Speech is fluent, face is symmetric. Negative Babinski bilaterally. LABORATORY DATA/IMAGING STUDIES/MICROBIOLOGY: Have been reviewed. ASSESSMENT AND PLAN: This is a 40-year-old female with a history of CVA, migraines, Diallo's esophagus, oral HSV, C. Diff colitis, ADHD, admitted on July 27 with complaints of headache for three days, left sided, parietal, without photophobia, blurred vision, or focal numbness or weakness with persistent nausea and vomiting with a fever of 102 at home. Patient was found to have a white blood cell count of 32.1, status post lumbar puncture with CSF fluid being clear colorless with WBC of 9, CSF glucose of 56. Patient was started on Vancomycin and Ceftriaxone for presumed meningitis. CSF fluid and gram stain obtained. No organism seen. Infectious Disease specialist, Dr. Ana Hills has been consulted. IMPRESSION: 1. Aseptic meningitis. defer to ID for abxmgt. csf fluid reviewed 2. Migraines with history of CVA, resolved. on prn toradol and reglan avoiding triptans due to h/o cva. 3. 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 4. ADHD, resumed on home medications. 5. History of Diallo's esophagus. 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 6. +cdiff w chronic 3-4 bm. on contact isolation. po vanco. defer toID if appropriate to give zinplava after discharge. 7. h/o IBS. has chronic 3-4 bm daily per pt. has not seen Dr. Cobian in 2 yrs. 8. GI panel Enteropathogenic E. coli-supportive care. defer to ID 9. Blood cx-gram positive cocci.-?contaminant. await identification . dfer to id disposition: await ID recommendations. VS, I&O, 24H, Fishbone Vital Signs/I&O Vital Signs Date Time Temp Pulse Resp B/P (MAP) Pulse Ox O2 Delivery O2 Flow Rate FiO2 07/29/21 04:00 99.6 82 20 129/86 (100) 93 Room Air I&O- Last 24 Hours up to 6 AM 07/29/21 06:00 Intake Total 1850 ml Output Total 1000 ml Balance 850 ml Laboratory Data Microbiology Microbiology 07/28/21 Blood Culture, Received Pending 07/28/21 Blood Culture, Received Pending 07/28/21 Gastrointestinal Tract Panel (PCR) - Final, Complete Clostridium Difficile A/B Enteropathogenic E.coli 07/27/21 Gram Stain - Final, Complete 07/27/21 CSF Culture - Final, Complete 07/27/21 - Final, Complete 07/27/21 Blood Culture - Preliminary, Resulted No Growth after 48 hours. All Specime... 07/27/21 Blood Culture - Preliminary, Resulted MARILEE NUNEZ MD Jul 29, 2021 07:57
[2021-07-29 08:00] VITALS: BP 136/87
[2021-07-29 08:33] LABS: BASO # 0.1 10^3/uL (0.0-0.2); BASO % 0.6 % (0.0-1.0); EOS # 0.4 10^3/uL (0.0-0.5); EOS % 2.7 % (0.0-3.0); HEMATOCRIT 28.5 % (36.0-47.0); HEMOGLOBIN 9.5 g/dl (12.0-15.5); LYMPH # 1.5 10^3/uL (1.5-5.0); LYMPH % 11.4 % (24.0-44.0); MEAN CORPUSCULAR HEMOGLOBIN 28.7 pg (27.0-33.0); MEAN CORPUSCULAR HGB CONC 33.3 g/dl (32.0-36.5); MEAN CORPUSCULAR VOLUME 86.1 fl (80.0-96.0); MONO # 0.7 10^3/uL (0.0-0.8); MONO % 5.4 % (2.0-8.0); NEUTROPHILS # 9.9 10^3/uL (1.5-8.5); NEUTROPHILS % 75.6 % (36.0-66.0); PLATELET COUNT, AUTOMATED 165 10^3/uL (150-450); RED BLOOD COUNT 3.31 10^6/uL (4.00-5.40); WHITE BLOOD COUNT 13.1 10^3/uL (4.0-10.0)
[2021-07-29 09:10] LABS: BLOOD UREA NITROGEN 9 MG/DL (7-18); C REACTIVE PROTEIN QUANTITATIV 5.83 MG/DL (0.00-0.30); CALCIUM LEVEL 8.3 MG/DL (8.5-10.1); CARBON DIOXIDE LEVEL 24 MEQ/L (21-32); CHLORIDE LEVEL 108 MEQ/L (98-107); ERYTHROCYTE SEDIMENTATION RATE 64 mm/hr (0-20); GLOMERULAR FILTRATION RATE > 60.0 (>58); GLUCOSE, FASTING 81 MG/DL (70-100); IMMUNOGLOBULIN G 1130 MG/DL (681-1648); IMMUNOGLOBULIN M 64.1 MG/DL (40-230); POTASSIUM SERUM 3.9 MEQ/L (3.5-5.1); SODIUM LEVEL 139 MEQ/L (136-145)
[2021-07-29] MEDS: PANTOPRAZOLE 40MG TAB (PROTONIX) PO SCH (09:23)
[2021-07-29] MEDS: KETOROLAC 30 MG/ML 1ML VIAL IV PRN ×2 (09:23→15:43)
--- NOTE | 2021-07-29 10:13 | CR ---
INFECTIOUS DISEASE CONSULTATION DATE: 07/28/2021 HISTORY OF PRESENT ILLNESS: Dana Ellington is a 40-year-old female who presented to the hospital initially complaining of persistent headache that started on Sunday07/24/2021 after taking a shower in the afternoon. Patient reports a sudden onset of sharp shooting pain on the left side of her head behind her ear. She states that this sharp shooting pain was intermittent, occurring about five minutes and lasting approximately 1 minute each time. She also reported a dull pain in between these episodes which was constant throughout the afternoon and evening. She states she had chills at that time feeling like she could not get warm and measured her temperature to be 101 degrees Fahrenheit using a temporal thermometer. She states that she was able to get to bed and was feeling somewhat similar in the morning with a flu-like type of feeling. She did go to work on Sunday and reports that around 4 p.m. that sharp shooting pain returned on the left side of her head. At that time she decided to go home. She also reported chills and fevers Sunday evening with temperature up to 102 degrees Fahrenheit with a temporal thermometer. During these episodes she did report nausea and vomiting of bilious substance. Sunday evening she went to the ER and was treated for a migraine with IV Toradol and Reglan. She states this helped somewhat but did not relieve the pain. On Sunday, she went to her primary care office and saw James Law PA-C who treated her again for a migraine with Reglan and Toradol. This time the treatment did not help at all and she again presented to the Emergency Room later that evening. She states on Sunday at home she did try taking her own migraine medication including Imitrex which did not change her symptoms at all. She states that even prior to this the past two months she has been feeling somewhat unwell and has been noted to have a low-grade fever and flu-like symptoms, on a few different occasions she has gone to Urgent Care about three weeks for flu-like symptoms and testing for COIVD and other illnesses were negative at that time. She also went to Urgent Care on 07/14 due to a low-grade fever when she was trying to go to a surgical consultation appointment in [place] and was again negative for COVID and other illnesses including flu and strep. The surgical consultation is for tendon surgery on her hand due to pain she has been having. She states that prior to recently she has never had persistent flu-like illness symptoms, fevers, or headaches like this in the past. She does have a history of migraines but states her migraine symptoms are very different from what she is currently experiencing. She also reports about 2-3 months ago she had a swollen lymph node in the right side of her neck which was tender. She did not have any other symptoms at that time. She did see her primary care office for this and was treated with antibiotic. She is not sure which antibiotic she was given at that time. She states that the lymph node did get better and she did not have any recurrent swollen lymph nodes. 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 She does have a picture which shows a vesicular lesion in the area of the macular rash on her right elbow. She also reports a history of shingles infection which occurred on the right side of her body and caused her to have both a vesicular rash in multiple dermatomes on the right side of her body as well as sharp shooting pains. She relates the left sided headache pain that she is currently having to these shooting pains she had during her shingles outbreak. She states that she was under a lot of stress and that is why her physicians felt she had a shingles outbreak when she did. PAST MEDICAL HISTORY: Migraines, Diallo's esophagus, HSV one which presents on her left and right elbow and back at times, C. Diff colitis, ADHD, prior CVA 16 years ago while . PAST SURGICAL HISTORY: Cholecystectomy, hysterectomy for excessive bleeding, tonsillectomy and adenoidectomy, two right knee surgeries, endometrial ablation, tubal ligation, bladder sling. SOCIAL HISTORY: Patient admits to smoking no cigarettes currently but had been smoking about 2-3 cigarettes a day most recently after cutting back from a half a pack a day which she has been smoking since she was a teenager. She states about the past month she had been feeling unwell and had not been smoking. She reports occasional social alcohol use with two or less drinks when she does choose to consume alcohol. 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 She lives at home with four kids and a grandson. FAMILY MEDICAL HISTORY: Her father has a history of hypertension, [place], stroke, stroke, diabetes, mother had uterine cancer. Her maternal grandfather had Factor V Leiden deficiency, maternal grandmother with breast cancer. She has a son with asthma. She has a daughter with migraines and seizure disorder. REVIEW OF SYSTEMS: GENERAL: Fevers and chills per HPI. No night sweats or change in weight, or sleep disturbance. HEENT: Headaches per HPI. No change in vision or hearing. No sore throat. No ear pain. PULMONARY: No cough right shortness of breath. CARDIAC: No chest pain or palpitations. GI: Reports chronic diarrhea, three to four episodes a day which she attributes to IBS, no blood in the stool. No abdominal pain. Reports nausea and vomiting per HPI. : No dysuria, urinary frequency or urinary urgency. DERMATOLOGY: Vesicular rash which is episodic and has occurred on the left and right elbows along with the back per HPI. MUSCULOSKELETAL: No joint pains or muscle aches. NEUROLOGIC: Headaches per HPI. No dizziness or weakness. LYMPHATIC: Lymphadenopathy as per HPI. PSYCHIATRIC: No change in mood. PHYSICAL EXAMINATION: VITAL SIGNS: Temperature is 98.6 degrees Fahrenheit temporal, heart rate 79, respiratory rate 16, blood pressure is 124/75, satting 98% on room air. GENERAL: Patient is alert and comfortable sitting up in bed in no acute distress. HEENT: Normocephalic, atraumatic. PERRLA/EOMI. Moist mucous membranes. There is a bump on the left side of the head in the parietofrontal region which is tender to palpation. There is no fluctuance to this lump. There is mild erythema over the bump without swelling. NECK: Supple. Trachea is midline. No lymphadenopathy. No thyromegaly. CARDIOVASCULAR: Regular rate and rhythm, normal S1 and S2. No murmurs appreciated. RESPIRATORY: Clear to auscultation bilaterally. No wheezing, rhonchi or rales appreciated. ABDOMEN: Soft, nontender and nondistended. Bowel sounds are present. No masses or hepatosplenomegaly appreciated. EXTREMITIES: There is a macular rash over the bilateral extensor surfaces of the arm which is small. No edema. NEUROLOGIC: No focal deficits appreciated. PSYCHIATRIC: Alert and oriented x3 to person, place and time. Mood and affect appropriate. LABORATORY DATA: White blood cell count 20.1, hemoglobin 9.0, hematocrit 27.2, platelet count 175,000. Procalcitonin 20.69, CRP is 14.3, ESR is 63, CSF with white blood cells of 9, red blood cells less than 2, glucose 56, protein 28, CSF viral PCR negative, CSF gram stain, CSF culture pending. One blood culture is positive for gram positive cocci in chains. IMAGING: Chest x-ray shows no acute findings: Brain MRI shows no acute abnormality with an isolated T2 hyperintensity at the right frontal horn which could represent small vessel ischemia, focal demyelination or sequelae of migraine headaches per radiologist report. ASSESSMENT AND PLAN: A 40-year-old female with a past medical history of migraine headaches, prior CVA, HSV, Diallo's esophagus who presented with one month of flu-like illness, low-grade fevers, and recent onset of new headache. Workup for meningitis appears negative at this time. She is bacteremic with one positive blood culture at this time. She also has significant leukocytosis with recurrent fevers. At this point it is not clear what the source of infection is. We will get a CT of her abdomen and pelvis with contrast to help evaluate given her chronic diarrhea. There may be a GI source. A GI panel is pending. We have also ordered additional testing including HIV which was negative, Lyme disease which is pending, CMV which is pending, and EBV which is pending, and HSV 1 and 2 which are pending. The patient is on appropriate antibiotics with IV Ceftriaxone to cover for her gram positive bacteremia and antibiotics can be adjusted based on the full culture results when available. Given her neuropathic headache symptoms, we will increase her dose of Valtrex and Nortriptyline to see if this helps with the pain. It is possible with the bump on her head that could be having a recurrent episode of shingles which she has had in the past.
[2021-07-29] MEDS: valACYclovir HCL 500 MG TAB PO SCH ×3 (11:09→20:29)
[2021-07-29 15:00] VITALS: BP 129/75
[2021-07-29 18:00] VITALS: BP 130/83
[2021-07-29] MEDS: ACETAMINOPHEN TAB 650MG DOSE (2X325MG) PO PRN (19:12)
[2021-07-29] MEDS: METOCLOPRAMIDE INJ 10MG/2ML VIAL (J2765 PER 1) IV PRN (19:12)
[2021-07-29] MEDS: DULoxetine 30MG CAPSULE (CYMBALTA) PO SCH (20:29)
[2021-07-29] MEDS: NORTRIPTYLINE 25 MG CAP PO SCH (20:29)
[2021-07-29 22:00] VITALS: BP 108/72
[2021-07-30] MEDS: VANCOMYCIN ORAL SOL 250MG/5ML ORAL SYRINGE PO SCH ×5 (00:16→23:32)
[2021-07-30 02:00] VITALS: BP 124/79
[2021-07-30] MEDS: cefTRIAXone SOD 2 GM in D5W MINI-BAG PLUS 50 ML IV SCH (05:37)
[2021-07-30 06:00] VITALS: BP 126/84
[2021-07-30] MEDS ORDERED: METOCLOPRAMIDE INJ 10MG/2ML VIAL (J2765 PER 1) IV ONE (08:30)
[2021-07-30] MEDS ORDERED: KETOROLAC 30 MG/ML 1ML VIAL IV ONE (08:30)
[2021-07-30] MEDS ORDERED: FIORICET TAB PO ONE (08:30)
[2021-07-30] MEDS ORDERED: NS 500 ML IV SCH (09:00)
[2021-07-30 09:22] VITALS: BP 129/80
[2021-07-30] MEDS: PANTOPRAZOLE 40MG TAB (PROTONIX) PO SCH (09:32)
[2021-07-30] MEDS: valACYclovir HCL 500 MG TAB PO SCH ×3 (09:32→20:09)
--- NOTE | 2021-07-30 10:37 | IPN ---
PROGRESS NOTE DATE: 07/30/2021 SUBJECTIVE: Patient complains of headache diffusely without any nausea, vomiting, neck rigidity or photophobia. No nausea, vomiting or epigastric pain. No aura. No paresthesias or weakness. PHYSICAL EXAMINATION: VITAL SIGNS: Temperature 98.3, pulse 77, respiratory rate 20, blood pressure 129/80, 96% on room air. GENERAL: Awake, alert, oriented to person, place and time. HEENT: Face is symmetric. Tongue is midline. LUNGS: Clear to auscultation. No wheezing, rales or rhonchi. HEART: S1, S2. Sinus rhythm. ABDOMEN: Soft, nontender, nondistended. Positive bowel sounds. EXTREMITIES: No cyanosis, clubbing or pitting edema. NEUROLOGIC: Face is symmetric. Tongue is midline. No dysmetria, pronator drift or Babinski bilaterally. Speech is fluent. No sensory disturbance with motor function 5/5 times four extremities. Gait was not tested. LABORATORY DATA/IMAGING STUDIES/MICROBIOLOGY: Please see the chart. ASSESSMENT: A 40-year-old female with history of cerebrovascular accident (CVA), migraines, Diallo's esophagus, oral herpes simplex virus (HSV), Clostridium (C) difficile colitis, attention deficit hyperactivity disorder (ADHD), admitted on July 27, 2021 with complaints of headache for three days, left-sided parietal without photophobia, blurred vision or focal numbness or weakness, but with persistent nausea and vomiting with fever of 102. Patient underwent lumbar puncture with culture being negative. She had blood culture being positive initially, but rule out Streptococcus mitis. Patient was given ceftriaxone. Vancomycin was discontinued. She was started on valacyclovir for shingles and HSV infection. Infectious disease specialist has been consulted. IMPRESSION: 1. Aseptic meningitis. 2. Migraines with history of cerebrovascular accident (CVA). 3. History of cerebrovascular accident (CVA). 4. Oral herpes simplex virus (HSV). 5. Attention deficit hyperactivity disorder (ADHD). 6. Diallo's esophagus. 7. Positive Clostridium (C) difficile. 8. History of irritable bowel syndrome (IBS). 9. History of enteropathogenic Escherichia (E) coli. 10. Contaminated blood culture with Streptococcus mitis. PLAN: Patient is currently on intravenous (IV) ceftriaxone, valacyclovir and oral vancomycin. Defer to infectious disease (ID) for any change in medications. Since the patient has positive Clostridium (C) difficile, may benefit from Zinplava after discharge. She follows with Dr. Cobian as outpatient for her chronic irritable bowel syndrome (IBS). Yesterday, she said she had seven bouts of loose stools due to possible contrast study for the headache due to history of cerebrovascular accident (CVA). We are avoiding triptans. Therefore, she will be given Toradol, Reglan and Fioricet.
[2021-07-30 14:00] VITALS: BP 126/80
[2021-07-30 18:00] VITALS: BP 137/89
[2021-07-30] MEDS: DULoxetine 30MG CAPSULE (CYMBALTA) PO SCH (20:09)
[2021-07-30] MEDS: NORTRIPTYLINE 25 MG CAP PO SCH (20:09)
[2021-07-30 22:24] VITALS: BP 134/85
[2021-07-31 02:00] VITALS: BP 133/83
[2021-07-31] MEDS: cefTRIAXone SOD 2 GM in D5W MINI-BAG PLUS 50 ML IV SCH (05:19)
[2021-07-31] MEDS: VANCOMYCIN ORAL SOL 250MG/5ML ORAL SYRINGE PO SCH ×3 (05:22→17:47)
[2021-07-31 06:00] VITALS: BP 129/86
[2021-07-31] MEDS: PANTOPRAZOLE 40MG TAB (PROTONIX) PO SCH (08:33)
[2021-07-31] MEDS: valACYclovir HCL 500 MG TAB PO SCH ×3 (08:34→20:46)
[2021-07-31 08:51] LABS: HEMATOCRIT 31.8 % (36.0-47.0); HEMOGLOBIN 10.8 g/dl (12.0-15.5); MEAN CORPUSCULAR HEMOGLOBIN 28.9 pg (27.0-33.0); PLATELET COUNT, AUTOMATED 235 10^3/uL (150-450); RED BLOOD COUNT 3.74 10^6/uL (4.00-5.40); WHITE BLOOD COUNT 12.6 10^3/uL (4.0-10.0)
[2021-07-31 09:11] LABS: BLOOD UREA NITROGEN 13 MG/DL (7-18); CALCIUM LEVEL 8.3 MG/DL (8.5-10.1); CARBON DIOXIDE LEVEL 24 MEQ/L (21-32); CHLORIDE LEVEL 107 MEQ/L (98-107); CREATININE FOR GFR 0.63 MG/DL (0.55-1.30); GLOMERULAR FILTRATION RATE > 60.0 (>58); GLUCOSE, FASTING 86 MG/DL (70-100); POTASSIUM SERUM 4.1 MEQ/L (3.5-5.1); SODIUM LEVEL 138 MEQ/L (136-145)
[2021-07-31 09:35] LABS: EOSINOPHILS 3 % (0-3); LYMPHOCYTES 8 % (16-44); METAMYELOCYTES 3 % (0-0); MONOCYTES 5 % (0-5); MYELOCYTES 1 % (0-0); NEUTROPHILS 76 % (28-66)
[2021-07-31 09:37] LABS: PLATELET ESTIMATE NORMAL (NORMAL)
--- NOTE | 2021-07-31 12:09 | IPNPDOC ---
Date Seen The patient was seen on 07/31/21. Progress Note SUBJECTIVE: despite vancomycin, pt says she had about 8 loose diarrhea episodes yesterday, but only 2 documented on I/o. no n/v/abd pain/fever/chills. Headache is gone, and no neck stiffness today. PHYSICAL EXAMINATION: VITAL SIGNS: see below GENERAL: no distress no pallor or cyanosis. HEENT: Face is symmetric. Tongue is midline. moist mm LUNGS: Clear to auscultation. No wheezing, rales or rhonchi. HEART: S1, S2. Sinus rhythm. ABDOMEN: Soft, nontender, nondistended. Positive bowel sounds. EXTREMITIES: No cyanosis, clubbing or pitting edema. NEUROLOGIC: Face is symmetric. Tongue is midline. No dysmetria, pronator drift or Babinski bilaterally. Speech is fluent. No sensory disturbance with motor function 5/5 times four extremities. Gait was not tested. LABORATORY DATA/IMAGING STUDIES/MICROBIOLOGY: Please see the chart. ASSESSMENT: A 40-year-old female with history of cerebrovascular accident (CVA), migraines, Diallo's esophagus, oral herpes simplex virus (HSV), Clostridium (C) difficile colitis, attention deficit hyperactivity disorder (ADHD), admitted on July 27, 2021 with complaints of headache for three days, left-sided parietal without photophobia, blurred vision or focal numbness or weakness, but with persistent nausea and vomiting with fever of 102. Patient underwent lumbar puncture with culture being negative. She had blood culture being positive initially, but rule out Streptococcus mitis. Patient was given ceftriaxone. Vancomycin was discontinued. She was started on valacyclovir for shingles and HSV infection. Infectious disease specialist has been consulted. IMPRESSION: 1. Aseptic meningitis. 2. Migraines with history of cerebrovascular accident (CVA). 3. History of cerebrovascular accident (CVA). 4. Oral herpes simplex virus (HSV). 5. Attention deficit hyperactivity disorder (ADHD). 6. Diallo's esophagus. 7. Positive Clostridium (C) difficile. 8. History of irritable bowel syndrome (IBS). 9. History of enteropathogenic Escherichia (E) coli. 10. Contaminated blood culture with Streptococcus mitis. PLAN: defer to ID re: d/c ceftriaxone since csf fluid negative , blood cx: contaminant , possiblychanging to difid since persistent 8bm/day on po vanco and zinplava as outpt if due to cdiff vs worsening ibs or abx induced diarrhea. h/a resolved. await further recommendations from ID on Sunday. VS, I&O, 24H, Fishbone Vital Signs/I&O Vital Signs Date Time Temp Pulse Resp B/P (MAP) Pulse Ox O2 Delivery O2 Flow Rate FiO2 07/31/21 06:00 98.6 92 18 129/86 (100) 94 Room Air I&O- Last 24 Hours up to 6 AM 07/31/21 06:00 Intake Total 1560 ml Output Total 0 ml Balance 1560 ml Laboratory Data 24H LABS Laboratory Tests 2 07/31/21 08:30: Immature Granulocyte % (Auto) , Neutrophils (%) (Auto) , Nucleated Red Blood Cells % (auto) 0.2H, Neutrophils 76H, Band Neutrophils 4, Lymphocytes (Manual) 8L, Monocytes (Manual) 5, Eosinophils (Manual) 3, Metamyelocytes 3H, Myelocytes 1H, Platelet Estimate NORMAL, Anion Gap 7L, Glomerular Filtration Rate > 60.0, Calcium Level 8.3L CBC/BMP Laboratory Tests 07/31/21 08:30 Microbiology Microbiology 07/28/21 Blood Culture - Preliminary, Resulted No Growth after 48 hours. All Specime... 07/28/21 Blood Culture - Preliminary, Resulted No Growth after 48 hours. All Specime... 07/28/21 Gastrointestinal Tract Panel (PCR) - Final, Complete Clostridium Difficile A/B Enteropathogenic E.coli 07/27/21 Gram Stain - Final, Complete 07/27/21 CSF Culture - Final, Complete 07/27/21 - Final, Complete 07/27/21 Blood Culture - Preliminary, Resulted No Growth after 72 hours. All specime... 07/27/21 Blood Culture - Final, Complete Streptococcus MARILEE Tello MD Jul 31, 2021 12:02
[2021-07-31] MEDS: ACETAMINOPHEN TAB 650MG DOSE (2X325MG) PO PRN (12:45)
[2021-07-31] MEDS ORDERED: MORPHINE 4 MG/ML 1ML VIAL/SYRINGE (J2270) IV PRN (13:30)
[2021-07-31 14:00] VITALS: BP 128/84
[2021-07-31] MEDS: MORPHINE 30 MG TAB **MSIR PO PRN (15:15)
[2021-07-31] MEDS ORDERED: KETOROLAC TROMETHAMINE 10 MG TAB PO ONE (20:15)
[2021-07-31] MEDS: DULoxetine 30MG CAPSULE (CYMBALTA) PO SCH (20:45)
[2021-07-31] MEDS: NORTRIPTYLINE 25 MG CAP PO SCH (20:45)
[2021-07-31 22:00] VITALS: BP 129/89
[2021-08-01] MEDS: VANCOMYCIN ORAL SOL 250MG/5ML ORAL SYRINGE PO SCH ×3 (00:15→11:51)
[2021-08-01 02:00] VITALS: BP 117/71
[2021-08-01] MEDS ORDERED: cefTRIAXone SOD 2 GM VIAL (J0696 PER 250MG) IM SCH (05:00)
[2021-08-01] MEDS ORDERED: LIDOCAINE 1% SDV 5ML VIAL DILUENT ONE (05:30)
[2021-08-01] MEDS ORDERED: cefTRIAXone SOD 2 GM VIAL (J0696 PER 250MG) IM ONE (05:30)
[2021-08-01 06:00] VITALS: BP 115/71
[2021-08-01] MEDS: PANTOPRAZOLE 40MG TAB (PROTONIX) PO SCH (08:30)
[2021-08-01] MEDS: valACYclovir HCL 500 MG TAB PO SCH ×2 (08:30→16:03)
[2021-08-01] MEDS: MORPHINE 30 MG TAB **MSIR PO PRN (11:41)
--- NOTE | 2021-08-01 13:42 | IPN ---
PROGRESS NOTE DATE: 08/01/2021 SUBJECTIVE: The patient lost her IV access yesterday and did not want it to be placed back. Intramuscular ceftriaxone was given this morning. She complained of 10 episodes of loose bowel movements yesterday without fever, chills, nausea or vomiting. No headache, neck rigidity. No other issues per nursing. OBJECTIVE: Temperature 97.4, pulse 84, respiratory rate 16, blood pressure 115/71, 93% on room air. General: The patient is awake, alert and oriented to person, place and time. Answers questions appropriately. Lungs are clear to auscultation. No wheezing, rales or rhonchi. Heart: S1, S2, sinus rhythm. Abdomen: Soft, nontender, non-distended. Positive bowel sounds. Extremities: No cyanosis or clubbing. No pitting edema. Laboratory date, imaging studies, microbiology have been reviewed. ASSESSMENT: 40-year-old female with history of cerebrovascular accident (CVA), migraines, Diallo's esophagus, oral herpes simplex virus, Clostridium difficile colitis, attention-deficit/hyperactive disorder (ADHD), irritable bowel syndrome, follows with Dr. Cobian, admitted July 27 complaining of headache, neck rigidity left-sided without photophobia, admitted with fever of 102. Underwent lumbar puncture. Cerebrospinal fluid (CSF) negative. Initially on vancomycin and ceftriaxone. Blood culture grew out Streptococcus mitis. She developed diarrhea, positive for Clostridium difficile on by mouth vancomycin. Blood culture with Streptococcus mitis. Infectious disease consulted. IMPRESSION: 1. Aseptic meningitis. 2. Oral herpes simplex virus/shingles. 3. Clostridium difficile colitis. 4. History of irritable bowel syndrome. 5. History of enteropathogenic E. coli. 6. Contaminate blood culture with Streptococcus mitis. 7. History of cerebrovascular accident (CVA). 8. History of migraines. 9. Attention-deficit/hyperactive disorder (ADHD). PLAN: Infectious disease consulted and will make recommendations regarding antibiotics or change in oral vancomycin due to increasing bowel movements, possibly to Dificid and outpatient Zinplava. Headache has resolved. Cerebrospinal fluid culture was negative. Refer to infectious disease if the patient can be discharged home.
[2021-08-01 14:00] VITALS: BP 120/79
[2021-08-01] MEDS ORDERED: FIDA200TA PO (15:56)
[2021-08-01] MEDS ORDERED: VALA500T5 PO (15:56)
[2021-08-01 17:07] LABS: CMV QUANT DNA PCR (PLASMA) Negative (Negative); HSV-1 DNA Negative (Negative); HSV-2 DNA Negative (Negative)
[2021-08-01] MEDS ORDERED: FIDAXOMICIN 200 MG TAB (DIFICID) PO SCH (21:00)
--- NOTE | 2021-08-16 18:43 | DS.PDOC ---
Discharge Summary General Date of Admission Jul 27, 2021 at 05:31 Date of Discharge 08/01/21 Discharge Summary DISCHARGE DIAGNOSES: 1. Aseptic meningitis. 2. Oral herpes simplex virus/shingles. 3. Clostridium difficile colitis. 4. History of irritable bowel syndrome. 5. History of enteropathogenic E. coli. 6. Contaminate blood culture with Streptococcus mitis. 7. History of cerebrovascular accident (CVA). 8. History of migraines. 9. Attention-deficit/hyperactive disorder (ADHD). DISCHARGE MEDICATIONS: SEE BELOW DISCHARGE INSTRUCTIONS: ID, PCP, AND NEUROLOGY FU 1WK/ PROCEDURES: LUMBAR PUNCTURE HOSPITAL COURSE: 40-year-old female with history of cerebrovascular accident (CVA), migraines, Diallo's esophagus, oral herpes simplex virus, Clostridium difficile colitis, attention-deficit/hyperactive disorder (ADHD), irritable bowel syndrome, follows with Dr. Cobian, admitted July 27 complaining of headache, neck rigidity left-sided without photophobia, admitted with fever of 102. Underwent lumbar puncture. Cerebrospinal fluid (CSF) negative. Initially on vancomycin and ceftriaxone. Blood culture grew out Streptococcus mitis. She developed diarrhea, positive for Clostridium difficile on by mouth vancomycin. Blood culture with Streptococcus mitis. Infectious disease consulted. CT of her abdomen and pelvis with contrast showed colitis. T The patient is on appropriate antibiotics with IV Ceftriaxone to cover for her gram positive bacteremia which was a contaminant, and antibiotics were discontinued. Given her neuropathic headache symptoms, we will increase her dose of Valtrex and Nortriptyline to see if this helps with the pain. It is possible with the bump on her head that could be having a recurrent episode of shingles which she has had in the past. On vancomycin, pt had persistent 5-7loose diarrhea. po vanco was discontinued, and pt was discharged on dificid. DISCHARGE PE VITALS: Temperature 97.4, pulse 84, respiratory rate 16, blood pressure 115/71, 93% on room air. General: The patient is awake, alert and oriented to person, place and time. Answers questions appropriately. HEENT: neg brudzinski's sign. neg kernig's sign. no jvd no thyromegaly no cervical LAD. moist mm. Lungs are clear to auscultation. No wheezing, rales or rhonchi. Heart: S1, S2, sinus rhythm. Abdomen: Soft, nontender, non-distended. Positive bowel sounds. Extremities: No cyanosis or clubbing. No pitting edema. Laboratory date, imaging studies, microbiology SEE CHART TIME SPENT ON DISCHARGE: 30 MIN Discharge Medications Scheduled Dextroamphetamine/Amphetamine (Mydayis ER 50 mg Capsule) 50 Mg Cptp.24hr, 1 CAP PO DAILY, (Reported) Duloxetine HCl (Duloxetine HCl) 30 Mg Capsule.dr, 30 MG PO QHS, (Reported) Ergocalciferol (Vitamin D2) (Vitamin D2) 50,000 Units Cap, 50,000 UNITS PO QWEEK, (Reported) Esomeprazole Magnesium (Esomeprazole Magnesium) 40 Mg Capsule.dr, 40 MG PO QHS, (Reported) Fidaxomicin (Dificid) 200 Mg Tablet, 200 MG PO BID Nortriptyline HCl (Nortriptyline HCl) 25 Mg Capsule, 25 MG PO QHS, (Reported) Valacyclovir HCl (Valacyclovir) 500 Mg Tablet, 1,000 MG PO TID Scheduled PRN Ondansetron HCl (Ondansetron HCl) 4 Mg Tablet, 8 MG PO Q6H PRN for NAUSEA OR VOMITING, (Reported) Sumatriptan Succinate (Sumatriptan Succinate) 50 Mg Tablet, 50 MG PO BID PRN for MIGRAINE, (Reported) Allergies Coded Allergies: erythromycin base (Unverified Allergy, Mild, RASH, 08/01/21) PER PATIENT, SHE HAS NOT TAKEN IT THAT SHE CAN REMEMBER. MOTHER TOLD HER SHE GETS A RASH latex (Verified Allergy, Mild, RASH, 07/26/21) MARILEE NUNEZ MD Aug 16, 2021 18:40
== END 2021-08-01 17:00 | disposition home or self-care (01) | DRG 50 ==
LOC: M ED 20:48 → M ED INP 07-27 05:31 → ENRESERV 07-27 06:12 → M PCU 07-27 07:50 → M MSPAV 07-29 15:02
PROVIDERS: ADMIT Family Medicine; ATTEND General Practice
DX: G03.0 Nonpyogenic meningitis (principal); A04.72 Enterocolitis due to Clostridium difficile, not specified as recurrent; A04.0 Enteropathogenic Escherichia coli infection; Z86.73 Personal history of transient ischemic attack (TIA), and cerebral infarction without residual deficits; K58.9 Irritable bowel syndrome, unspecified; F90.9 Attention-deficit hyperactivity disorder, unspecified type; G40.909 Epilepsy, unspecified, not intractable, without status epilepticus; K22.70 Barrett's esophagus without dysplasia; Z90.49 Acquired absence of other specified parts of digestive tract; Z90.79 Acquired absence of other genital organ(s); F17.210 Nicotine dependence, cigarettes, uncomplicated; K21.9 Gastro-esophageal reflux disease without esophagitis; Z20.822 Contact with and (suspected) exposure to COVID-19; Z79.899 Other long term (current) drug therapy; Z88.1 Allergy status to other antibiotic agents; Z91.040 Latex allergy status

== ENCOUNTER → 2021-07-26 | Outpatient (REF) | payer BC ==
[~2021-07-26] MED LIST changes: +DULO30CA47 PO; +ERGO500029 PO; +ESOM1CAP5 PO; +NORT25CA2 PO; +ONDA-83 PO; +VALT500T PO; +ZOFR4TAB16 PO
== END ==
LOC: M LAB REF 20:58
PROVIDERS: ATTEND Physician Assistant
DX: R51.9 Headache, unspecified (principal)

== ENCOUNTER → 2021-08-12 | Outpatient (CLI) | payer BC ==
[~2021-08-12] MED LIST changes: +DULO30CA47 PO; +ERGO500029 PO; +ESOM1CAP5 PO; +FIDA200TA PO; +NORT25CA2 PO; +ONDA-83 PO; +VALA500T5 PO
[2021-08-12 16:02] LABS: BASO # 0.1 10^3/uL (0.0-0.2); BASO % 1.8 % (0.0-1.0); EOS # 0.2 10^3/uL (0.0-0.5); HEMATOCRIT 35.7 % (36.0-47.0); HEMOGLOBIN 11.3 g/dl (12.0-15.5); LYMPH # 1.8 10^3/uL (1.5-5.0); LYMPH % 27.4 % (24.0-44.0); MEAN CORPUSCULAR HGB CONC 31.7 g/dl (32.0-36.5); MEAN CORPUSCULAR VOLUME 91.8 fl (80.0-96.0); MONO # 0.7 10^3/uL (0.0-0.8); NEUTROPHILS # 3.8 10^3/uL (1.5-8.5); NEUTROPHILS % 57.3 % (36.0-66.0); PLATELET COUNT, AUTOMATED 565 10^3/uL (150-450); RED BLOOD COUNT 3.89 10^6/uL (4.00-5.40); WHITE BLOOD COUNT 6.6 10^3/uL (4.0-10.0)
[2021-08-12 16:23] LABS: ALBUMIN 3.5 GM/DL (3.2-5.2); ALT/SGPT 42 U/L (12-78); BILIRUBIN,TOTAL 0.2 MG/DL (0.2-1.0); BLOOD UREA NITROGEN 21 MG/DL (7-18); C REACTIVE PROTEIN QUANTITATIV 0.32 MG/DL (0.00-0.30); CALCIUM LEVEL 9.3 MG/DL (8.5-10.1); CARBON DIOXIDE LEVEL 28 MEQ/L (21-32); CHLORIDE LEVEL 105 MEQ/L (98-107); CREATININE FOR GFR 0.82 MG/DL (0.55-1.30); GLOMERULAR FILTRATION RATE > 60.0 (>58); GLUCOSE, FASTING 109 MG/DL (70-100); POTASSIUM SERUM 4.3 MEQ/L (3.5-5.1); SODIUM LEVEL 137 MEQ/L (136-145); TOTAL PROTEIN 7.6 GM/DL (6.4-8.2)
[2021-08-14 12:07] LABS: % CD8 Pos Lymph 27.1 % (12.0-35.5); %CD4 Pos Lymphs 52.6 % (30.8-58.5); ABS Basophils 0.1 x10E3/uL (0.0-0.2); ABS Eosinophils 0.2 x10E3/uL (0.0-0.4); ABS Lymphs 1.9 x10E3/uL (0.7-3.1); ABS Monocytes 0.6 x10E3/uL (0.1-0.9); ABS Neutophils 3.8 x10E3/uL (1.4-7.0); Abs CD4 Helper 999 /uL (359-1519); Abs CD8 Suppres 515 /uL (109-897); CD4/CD8 Ratio 1.94 (0.92-3.72); Eosinophils 3 % (Not Estab.); HCT 34.6 % (34.0-46.6); HGB 11.4 g/dL (11.1-15.9); Immature Grans 0 % (Not Estab.); Lymphocytes 28 % (Not Estab.); MCH 29.4 pg (26.6-33.0); MCHC 32.9 g/dL (31.5-35.7); MCV 89 fL (79-97); Monocytes 9 % (Not Estab.); Neutrophils 58 % (Not Estab.); Platelets 591 x10E3/uL (150-450); RBC 3.88 x10E6/uL (3.77-5.28); RDW 14.4 % (11.7-15.4); WBC 6.6 x10E3/uL (3.4-10.8)
== END ==
LOC: M PLALAB 13:16
PROVIDERS: ATTEND Internal Medicine Infectious Disease
DX: A04.72 Enterocolitis due to Clostridium difficile, not specified as recurrent (principal)

== ENCOUNTER 2021-08-17 16:24 | Outpatient (CLI) | payer BC ==
[2021-08-17 16:25] VITALS: BP 146/94
[2021-08-17] MEDS ORDERED: BEZLOTOXUMAB 850 MG in NS 100 ML IV ONE (16:30)
[2021-08-17 18:56] VITALS: BP 155/98
== END 2021-08-17 19:00 | disposition home or self-care (01) ==
LOC: M INFU 16:24
PROVIDERS: ATTEND Internal Medicine Infectious Disease
DX: A04.71 Enterocolitis due to Clostridium difficile, recurrent (principal); Z91.040 Latex allergy status
CPT/HCPCS: 96365; J0565

== ENCOUNTER → 2021-09-02 | Outpatient (CLI) | payer BC ==
[2021-09-02 14:43] LABS: BASO # 0.1 10^3/uL (0.0-0.2); BASO % 0.9 % (0.0-1.0); EOS # 0.2 10^3/uL (0.0-0.5); EOS % 3.4 % (0.0-3.0); HEMATOCRIT 38.9 % (36.0-47.0); HEMOGLOBIN 12.4 g/dl (12.0-15.5); LYMPH # 1.9 10^3/uL (1.5-5.0); LYMPH % 29.3 % (24.0-44.0); MEAN CORPUSCULAR HGB CONC 31.9 g/dl (32.0-36.5); MEAN CORPUSCULAR VOLUME 90.9 fl (80.0-96.0); MONO # 0.7 10^3/uL (0.0-0.8); MONO % 11.4 % (2.0-8.0); NEUTROPHILS # 3.6 10^3/uL (1.5-8.5); NEUTROPHILS % 54.8 % (36.0-66.0); PLATELET COUNT, AUTOMATED 338 10^3/uL (150-450); RED BLOOD COUNT 4.28 10^6/uL (4.00-5.40); WHITE BLOOD COUNT 6.5 10^3/uL (4.0-10.0)
[2021-09-02 15:15] LABS: ALBUMIN 3.6 GM/DL (3.2-5.2); ALT/SGPT 30 U/L (12-78); BILIRUBIN,TOTAL 0.3 MG/DL (0.2-1.0); BLOOD UREA NITROGEN 14 MG/DL (7-18); C REACTIVE PROTEIN QUANTITATIV 1.26 MG/DL (0.00-0.30); CALCIUM LEVEL 9.4 MG/DL (8.5-10.1); CARBON DIOXIDE LEVEL 27 MEQ/L (21-32); CHLORIDE LEVEL 106 MEQ/L (98-107); CREATININE FOR GFR 0.71 MG/DL (0.55-1.30); FREE T4 1.01 NG/DL (0.76-1.46); GLOMERULAR FILTRATION RATE > 60.0 (>58); GLUCOSE, FASTING 109 MG/DL (70-100); MAGNESIUM LEVEL 2.1 MG/DL (1.8-2.4); POTASSIUM SERUM 4.1 MEQ/L (3.5-5.1); RHEUMATOID FACTOR QUANT < 10.0 IU/ML (<15.0); SODIUM LEVEL 137 MEQ/L (136-145); TOTAL PROTEIN 7.3 GM/DL (6.4-8.2)
[2021-09-02 15:19] LABS: THYROGLOBULIN ANTIBODY < 15.0 U/ML (<60.0); THYROID PEROXIDASE ANTIBODY < 28.0 U/ML (<60.0)
[2021-09-02 15:24] LABS: ERYTHROCYTE SEDIMENTATION RATE 20 mm/hr (0-20)
[2021-09-04 23:11] LABS: ANA (HEP2) Negative (.); CYCLIC CITRULLINATED PEPTIDE 7 units (0-19)
== END ==
LOC: M PLALAB 08:19
PROVIDERS: ATTEND Family Medicine
DX: R00.0 Tachycardia, unspecified (principal); R00.2 Palpitations; R53.83 Other fatigue

== ENCOUNTER → 2021-09-12 | Outpatient (REF) | payer BC | LOC: M SFHCPLAZ 13:01 | PROVIDERS: ATTEND Internal Medicine Infectious Disease | DX: B00.9 Herpesviral infection, unspecified (principal) ==

== ENCOUNTER → 2021-09-27 | Outpatient (CLI) | payer BC ==
[~2021-09-27] MED LIST changes: +SUMA6CAR SC; -SUMA6KIT SC
[2021-09-27 17:21] LABS: BASO # 0.1 10^3/uL (0.0-0.2); BASO % 1.3 % (0.0-1.0); EOS # 0.1 10^3/uL (0.0-0.5); EOS % 1.5 % (0.0-3.0); HEMATOCRIT 39.3 % (36.0-47.0); HEMOGLOBIN 12.8 g/dl (12.0-15.5); LYMPH # 1.5 10^3/uL (1.5-5.0); LYMPH % 32.5 % (24.0-44.0); MEAN CORPUSCULAR HEMOGLOBIN 29.6 pg (27.0-33.0); MEAN CORPUSCULAR HGB CONC 32.6 g/dl (32.0-36.5); NEUTROPHILS % 43.5 % (36.0-66.0); PLATELET COUNT, AUTOMATED 309 10^3/uL (150-450); RED BLOOD COUNT 4.32 10^6/uL (4.00-5.40); WHITE BLOOD COUNT 4.6 10^3/uL (4.0-10.0)
[2021-09-27 18:10] LABS: ERYTHROCYTE SEDIMENTATION RATE 13 mm/hr (0-20)
== END ==
LOC: M PLALAB 12:52
PROVIDERS: ATTEND Internal Medicine Infectious Disease
DX: B00.9 Herpesviral infection, unspecified (principal)

== ENCOUNTER → 2021-09-30 | Outpatient (CLI) | payer BC ==
[~2021-09-30] MED LIST changes: -SUMA6CAR SC; +SUMA6KIT SC
--- NOTE | 2021-10-01 01:45 | REPVR ---
PROCEDURE INFORMATION: Exam: MR Head Without Contrast Exam date and time: 09/30/2021 3:51 PM Age: 40 years old Clinical indication: Cerebral infarction TECHNIQUE: Imaging protocol: MR of the head without contrast. Other technique: MRA is recommended to evaluate for vascular structures. COMPARISON: MRI-Brain W/O FOLL BY WITH 07/27/2021 10:37 AM FINDINGS: Examination limited to ADC and DWI sequences. No evidence of acute intracranial hemorrhage or extra-axial fluid collection. No evidence of mass effect or midline shift. No restricted diffusion to suggest acute infarct. No ventriculomegaly. IMPRESSION: No MR evidence of acute infarct. PROCEDURE INFORMATION: Exam: MRA Head Without Contrast; Arteriography Exam date and time: 09/30/2021 3:51 PM Age: 40 years old Clinical indication: Cerebral infarction TECHNIQUE: Imaging protocol: Magnetic resonance angiography head without contrast. Exam focused on the arteries. Other technique: MRA is recommended to evaluate for vascular structures. COMPARISON: MRI-Brain W/O FOLL BY WITH 07/27/2021 10:37 AM FINDINGS: ANTERIOR CIRCULATION: Right internal carotid artery: Intracranial segment is patent with no significant stenosis. No aneurysm. Right middle cerebral artery: No occlusion or significant stenosis. No aneurysm. Right anterior cerebral artery: No occlusion or significant stenosis. No aneurysm. Left internal carotid artery: Intracranial segment is patent with no significant stenosis. No aneurysm. Left middle cerebral artery: No occlusion or significant stenosis. No aneurysm. Left anterior cerebral artery: No occlusion or significant stenosis. No aneurysm. POSTERIOR CIRCULATION: Right vertebral artery: No occlusion or significant stenosis. No aneurysm. Left vertebral artery: No occlusion or significant stenosis. No aneurysm. Basilar artery: No occlusion or significant stenosis. No aneurysm. Right posterior cerebral artery: No occlusion or significant stenosis. No aneurysm. Left posterior cerebral artery: No occlusion or significant stenosis. No aneurysm. IMPRESSION: No MRA evidence of intracranial arterial occlusion or significant stenosis. Electronically signed by: Jorje Pruitt On 10/01/2021 01:44:53 AM
--- NOTE | 2021-10-01 01:46 | REPVR ---
PROCEDURE INFORMATION: Exam: MRA Neck Without Contrast Exam date and time: 09/30/2021 3:51 PM Age: 40 years old Clinical indication: Other: Cerebral infarction TECHNIQUE: Imaging protocol: Magnetic resonance angiography of the neck without contrast. COMPARISON: MRI-Brain W/O FOLL BY WITH 07/27/2021 10:37 AM FINDINGS: Right common carotid artery: No significant stenosis or occlusion. Right internal carotid artery: Extracranial segment is patent without evidence of hemodynamically significant stenosis. Right external carotid artery: Unremarkable. Right vertebral artery: No significant stenosis or occlusion. Left common carotid artery: No significant stenosis or occlusion. Left internal carotid artery: Extracranial segment is patent without evidence of hemodynamically significant stenosis. Left external carotid artery: Unremarkable. Left vertebral artery: No significant stenosis or occlusion. IMPRESSION: No MRA evidence of occlusion or significant stenosis in the arteries of the neck. REFERENCES: NASCET CRITERIA. The degree of internal carotid artery stenosis is based on NASCET criteria. Normal is no stenosis. Mild is less than 50% stenosis. Moderate is 50-69% stenosis. Severe is 70% to 99% stenosis. Total occlusion is no detectable patent lumen. Electronically signed by: Jorje Pruitt On 10/01/2021 01:46:00 AM
== END ==
LOC: M PLAIMG 14:44
PROVIDERS: ATTEND Psychiatry & Neurology Neurology
DX: I63.9 Cerebral infarction, unspecified (principal)

== ENCOUNTER → 2021-10-06 | Outpatient (REF) | payer BC ==
[~2021-10-06] MED LIST changes: +SUMA6CAR SC; -SUMA6KIT SC
== END ==
LOC: M SFHCWAGY 10:19
PROVIDERS: ATTEND Nurse Practitioner Women's Health
DX: Z12.72 Encounter for screening for malignant neoplasm of vagina (principal)

== ENCOUNTER → 2021-10-07 | Outpatient (REF) | LOC: M LABSMTC 11:58 | PROVIDERS: ATTEND Family Medicine | DX: Z20.828 Contact with and (suspected) exposure to other viral communicable diseases (principal) ==

== ENCOUNTER → 2021-10-18 | Outpatient (CLI) | payer BC ==
[~2021-10-18] MED LIST changes: -SUMA6CAR SC; +SUMA6KIT SC
--- NOTE | 2021-10-18 10:09 | REPMRS ---
Patient History The patient states she had a clinical breast exam in 2020. Family history of breast cancer at age 40 in maternal grandmother, endometrial cancer at age 28 in mother, ovarian cancer at age 44 in mother, breast cancer at age 44 in sister. Tomosynthesis is performed. Volpara breast density is b. No breast complaints today Patient signed the MRS sheet 1st vaccine [id number] arm 2nd vaccine Priors on PACS Patient Identification Verified Digital Woman Screen Mammo: October 18, 2021 - Exam #: [id number] Bilateral CC and MLO view(s) were taken. Technologist: Lyndsey Buckley, Technologist Prior study comparison: October 18, 2020, bilateral digital woman screen mammo performed at [facility] and [facility]. April 11, 2018, digital mammo diagnostic bilateral, performed at [facility]. FINDINGS: The breast tissue is heterogeneously dense. This may lower the sensitivity of mammography. There has been no change in the appearance of the mammogram from the prior studies. There is a moderate amount of residual fibroglandular tissue which is fairly symmetric. There is no interval development of dominant mass, areas of architectural distortion, or clustered microcalcification typical of malignancy. Assessment: BI-RADS/ACR category 1 mammogram. Negative Mammogram. Recommendation Routine screening mammogram in 1 year (for women over age 40). This mammogram was interpreted with the aid of an FDA-approved computer-aided dectection system. The Lifetime Breast Cancer Risk is estimated at 34.0%. Yearly supplemental screening MRI of the breasts is recommended for patients with an elevated lifetime risk of breast cancer of 20% or greater, in addition to annual screening mammography, staggered every 6 months. Electronically Signed By: Riley Bailey MD 10/18/21 [id number]
== END ==
LOC: M WHC 07:04
PROVIDERS: ATTEND Surgery
DX: Z12.31 Encounter for screening mammogram for malignant neoplasm of breast (principal); Z80.3 Family history of malignant neoplasm of breast; Z80.49 Family history of malignant neoplasm of other genital organs; Z80.41 Family history of malignant neoplasm of ovary

== ENCOUNTER → 2021-11-14 | Outpatient (CLI) | payer BC ==
[~2021-11-14] MED LIST changes: +SUMA6CAR SC; -SUMA6KIT SC
== END ==
LOC: M WHC 13:52
PROVIDERS: ATTEND Family Medicine
DX: E04.9 Nontoxic goiter, unspecified (principal)

== ENCOUNTER → 2022-06-05 | Outpatient (CLI) | payer BC ==
[2022-06-05 14:12] LABS: BASO # 0.1 10^3/uL (0.0-0.2); BASO % 0.7 % (0.0-1.0); EOS # 0.2 10^3/uL (0.0-0.5); EOS % 2.4 % (0.0-3.0); HEMATOCRIT 41.2 % (36.0-47.0); HEMOGLOBIN 13.2 g/dl (12.0-15.5); LYMPH # 1.7 10^3/uL (1.5-5.0); LYMPH % 20.1 % (24.0-44.0); MEAN CORPUSCULAR HEMOGLOBIN 30.4 pg (27.0-33.0); MEAN CORPUSCULAR VOLUME 94.9 fl (80.0-96.0); MONO # 0.6 10^3/uL (0.0-0.8); MONO % 7.6 % (2.0-8.0); NEUTROPHILS # 5.7 10^3/uL (1.5-8.5); NEUTROPHILS % 68.8 % (36.0-66.0); PLATELET COUNT, AUTOMATED 323 10^3/uL (150-450); RED BLOOD COUNT 4.34 10^6/uL (4.00-5.40); WHITE BLOOD COUNT 8.3 10^3/uL (4.0-10.0)
[2022-06-05 16:39] LABS: ALBUMIN 3.8 GM/DL (3.2-5.2); ALT/SGPT 38 U/L (12-78); BILIRUBIN,TOTAL 0.2 MG/DL (0.2-1.0); BLOOD UREA NITROGEN 13 MG/DL (7-18); CALCIUM LEVEL 9.1 MG/DL (8.5-10.1); CARBON DIOXIDE LEVEL 25 MEQ/L (21-32); CHLORIDE LEVEL 106 MEQ/L (98-107); CHOLESTEROL LEVEL 159 MG/DL (<200); CHOLESTEROL RISK RATIO 2.789 (<5); FREE T4 1.01 NG/DL (0.76-1.46); GLOMERULAR FILTRATION RATE > 60.0 (>58); GLUCOSE, FASTING 98 MG/DL (70-100); HDL CHOLESTEROL 57 MG/DL (>40); LDL CHOLESTEROL 87 MG/DL (<100); NON-HDL-C 102 MG/DL; POTASSIUM SERUM 4.2 MEQ/L (3.5-5.1); SODIUM LEVEL 138 MEQ/L (136-145); TOTAL PROTEIN 7.1 GM/DL (6.4-8.2); TRIGLYCERIDES LEVEL 75 MG/DL (<150)
[2022-06-06 00:06] LABS: HEMOGLOBIN A1c 5.6 %
== END ==
LOC: M PLALAB 07:22
PROVIDERS: ATTEND Nurse Practitioner Adult Health
DX: E04.9 Nontoxic goiter, unspecified (principal)

== ENCOUNTER → 2022-06-23 | Outpatient (CLI) | payer BC | LOC: M SOG 15:18 | PROVIDERS: ATTEND Physician Assistant | DX: M25.531 Pain in right wrist (principal) ==

== ENCOUNTER → 2022-07-18 | Outpatient (CLI) | payer BC ==
[~2022-07-18] MED LIST changes: +PROHANCE 279.3MG/ML 15ML VIAL As Ordered ONE; +PROHANCE 279.3MG/ML 5ML VIAL As Ordered ONE
== END ==
LOC: M RAD 15:47
PROVIDERS: ATTEND Surgery
DX: Z91.89 Other specified personal risk factors, not elsewhere classified (principal); Z80.3 Family history of malignant neoplasm of breast; Z80.41 Family history of malignant neoplasm of ovary
CPT/HCPCS: A9576; C8908

== ENCOUNTER → 2022-08-29 | Outpatient (REF) | payer BC ==
[~2022-08-29] MED LIST changes: -PROHANCE 279.3MG/ML 15ML VIAL As Ordered ONE; -PROHANCE 279.3MG/ML 5ML VIAL As Ordered ONE
== END ==
LOC: M SFHCPLAZ 13:10
PROVIDERS: ATTEND Internal Medicine Infectious Disease
DX: B02.9 Zoster without complications (principal)

== ENCOUNTER → 2022-09-13 | Outpatient (REF) ==
[2022-09-13 10:03] LABS: RSV AMPLIFICATION NEGATIVE (NEGATIVE)
== END ==
LOC: M EMP 08:15
PROVIDERS: ATTEND Family Medicine
DX: Z20.822 Contact with and (suspected) exposure to COVID-19 (principal)

== ENCOUNTER 2022-12-07 22:50 | Emergency (ER) | payer BC, SELFPAY ==
[~2022-12-07] VITALS: Ht 155.3 cm; Wt 90.9 kg
[2022-12-07] MEDS ORDERED: ASPI81TA26 PO (23:05)
[2022-12-08 03:38] LABS: APPEARANCE, URINE MANUAL CLEAR (CLEAR); COLOR, URINE MANUAL YELLOW (YELLOW)
[2022-12-08 03:39] LABS: BILIRUBIN, URINE MANUAL NEGATIVE (NEGATIVE); BLOOD URINE MANUAL NEGATIVE (NEGATIVE); GLUCOSE, URINE (UA) MANUAL NEGATIVE (NEGATIVE); KETONE, URINE MANUAL NEGATIVE (NEGATIVE); LEUKOCYTE ESTERASE, URINE MAN NEGATIVE (NEGATIVE); NITRITE, URINE MANUAL NEGATIVE (NEGATIVE); PROTEIN, URINE MANUAL NEGATIVE (NEGATIVE); SPECIFIC GRAVITY,URINE MANUAL 1.025 (1.002-1.035); UROBILINOGEN, URINE MANUAL NORMAL (NORMAL)
[2022-12-08 03:42] LABS: BASO # 0.1 10^3/uL (0.0-0.2); BASO % 0.7 % (0.0-1.0); EOS # 0.1 10^3/uL (0.0-0.5); EOS % 1.2 % (0.0-3.0); HEMATOCRIT 41.6 % (36.0-47.0); HEMOGLOBIN 13.6 g/dl (12.0-15.5); LYMPH # 2.2 10^3/uL (1.5-5.0); LYMPH % 20.2 % (24.0-44.0); MEAN CORPUSCULAR HEMOGLOBIN 30.7 pg (27.0-33.0); MEAN CORPUSCULAR HGB CONC 32.7 g/dl (32.0-36.5); MEAN CORPUSCULAR VOLUME 93.9 fl (80.0-96.0); MONO # 0.9 10^3/uL (0.0-0.8); MONO % 8.2 % (2.0-8.0); NEUTROPHILS # 7.4 10^3/uL (1.5-8.5); NEUTROPHILS % 69.3 % (36.0-66.0); PLATELET COUNT, AUTOMATED 349 10^3/uL (150-450); RED BLOOD COUNT 4.43 10^6/uL (4.00-5.40); WHITE BLOOD COUNT 10.7 10^3/uL (4.0-10.0)
[2022-12-08 04:09] LABS: LIPASE 26 U/L (12-53)
[2022-12-08 04:11] LABS: BLOOD UREA NITROGEN 16 MG/DL (9-23); CALCIUM LEVEL 9.3 MG/DL (8.5-10.1); CARBON DIOXIDE LEVEL 25 MMOL/L (20-31); CHLORIDE LEVEL 102 MMOL/L (98-107); CREATININE FOR GFR 0.66 MG/DL (0.55-1.30); GLOMERULAR FILTRATION RATE > 60.0 (>58); GLUCOSE, FASTING 105 MG/DL (60-100); POTASSIUM SERUM 4.3 MMOL/L (3.5-5.1); SODIUM LEVEL 136 MMOL/L (136-145)
[2022-12-08] MEDS ORDERED: MORPHINE 4 MG/ML 1ML VIAL IV ONE ×2 (09:35→14:15)
[2022-12-08] MEDS ORDERED: ONDANSETRON 4MG 2ML VIAL IV ONE (09:35)
[2022-12-08] MEDS ORDERED: NS 1,000 ML IV ONE (09:35)
[2022-12-08] MEDS ORDERED: ISOVUE-370 76% 100ML VIAL As Ordered ONE (09:46)
[2022-12-08 10:44] LABS: ALKALINE PHOSPHATASE 66 U/L (46-116); ALT/SGPT 26 U/L (7.0-40); AST/SGOT < 8 U/L (<34); BILIRUBIN,DIRECT 0.2 MG/DL (<0.4); BILIRUBIN,TOTAL 0.6 MG/DL (0.3-1.2); TOTAL PROTEIN 7.4 G/DL (5.7-8.2)
[2022-12-08 10:50] LABS: RSV AMPLIFICATION NEGATIVE (NEGATIVE)
[2022-12-08 12:01] LABS: CK-MB VALUE MASS < 1.0 NG/ML (<3.6); CPK CREATINE PHOSPHOKINASE 74 U/L (34-145); MB/CK RELATIVE INDEX 1.35 (< OR =4)
[2022-12-08] MEDS ORDERED: KETO10TAB PO (14:18)
[2022-12-08] MEDS ORDERED: PERC5TAB12 PO (14:18)
[2022-12-08 14:50] VITALS: BP 143/86
== END 2022-12-08 14:50 | disposition home or self-care (01) ==
LOC: M ED 22:50
DX: R10.31 Right lower quadrant pain (principal); N83.291 Other ovarian cyst, right side; R19.7 Diarrhea, unspecified; K21.9 Gastro-esophageal reflux disease without esophagitis; Z86.73 Personal history of transient ischemic attack (TIA), and cerebral infarction without residual deficits; Z87.442 Personal history of urinary calculi; K58.9 Irritable bowel syndrome, unspecified; F90.9 Attention-deficit hyperactivity disorder, unspecified type; K22.70 Barrett's esophagus without dysplasia; G43.909 Migraine, unspecified, not intractable, without status migrainosus; M26.609 Unspecified temporomandibular joint disorder, unspecified side; Z90.49 Acquired absence of other specified parts of digestive tract; Z90.710 Acquired absence of both cervix and uterus; F17.200 Nicotine dependence, unspecified, uncomplicated; Z88.1 Allergy status to other antibiotic agents; Z88.8 Allergy status to other drugs, medicaments and biological substances; Z91.040 Latex allergy status; Z86.19 Personal history of other infectious and parasitic diseases; E66.9 Obesity, unspecified; Z79.82 Long term (current) use of aspirin; Z79.899 Other long term (current) drug therapy
CPT/HCPCS: 74177; 76830; 76856; 80048; 80076; 81002; 82550; 82553; 83605; 83690; 84484; 85025; 87631; 93005; 93976; 96374; 96375; 96376; 99284; J2270; J2405

== ENCOUNTER → 2023-02-15 | Outpatient (CLI) | payer OTHER ==
[~2023-02-15] MED LIST changes: +ASPI81TA26 PO; +PERC5TAB12 PO
[2023-02-15 16:13] LABS: HEMATOCRIT 43.6 % (36.0-47.0); MEAN CORPUSCULAR HEMOGLOBIN 31.4 pg (27.0-33.0); MEAN CORPUSCULAR HGB CONC 34.4 g/dl (32.0-36.5); MEAN CORPUSCULAR VOLUME 91.4 fl (80.0-96.0); PLATELET COUNT, AUTOMATED 332 10^3/uL (150-450); RED BLOOD COUNT 4.77 10^6/uL (4.00-5.40); WHITE BLOOD COUNT 6.1 10^3/uL (4.0-10.0)
[2023-02-15 16:40] LABS: ALBUMIN 3.6 G/DL (3.2-5.2); ALKALINE PHOSPHATASE 66 U/L (46-116); ALT/SGPT 20 U/L (7.0-40); AST/SGOT 21 U/L (<34); BILIRUBIN,TOTAL 0.2 MG/DL (0.3-1.2); BLOOD UREA NITROGEN 10 MG/DL (9-23); CALCIUM LEVEL 9.3 MG/DL (8.5-10.1); CARBON DIOXIDE LEVEL 28 MMOL/L (20-31); CHLORIDE LEVEL 106 MMOL/L (98-107); CHOLESTEROL LEVEL 140 MG/DL (<200); CHOLESTEROL RISK RATIO 3.11 (<5); CREATININE FOR GFR 0.68 MG/DL (0.55-1.30); GLOMERULAR FILTRATION RATE > 60.0 (>58); GLUCOSE, FASTING 96 MG/DL (60-100); LDL CHOLESTEROL 60.6 MG/DL (<100); POTASSIUM SERUM 4.2 MMOL/L (3.5-5.1); SODIUM LEVEL 141 MMOL/L (136-145); TOTAL PROTEIN 6.8 G/DL (5.7-8.2); TRIGLYCERIDES LEVEL 172 MG/DL (<150)
[2023-02-15 16:41] LABS: THYROID STIMULATING HORMONE 3.682 uIU/ML (0.55-4.78)
[2023-02-15 19:22] LABS: HEMOGLOBIN A1c 5.7 % (4.0-6.0)
== END ==
LOC: M PLALAB 13:36
PROVIDERS: ATTEND Advanced Practice Midwife
DX: N83.201 Unspecified ovarian cyst, right side (principal); R10.2 Pelvic and perineal pain; Z80.41 Family history of malignant neoplasm of ovary; E66.9 Obesity, unspecified; N95.1 Menopausal and female climacteric states

== ENCOUNTER → 2023-02-28 | Outpatient (CLI) | payer OTHER | LOC: M WHC 09:58 | PROVIDERS: ATTEND Surgery | DX: N60.02 Solitary cyst of left breast (principal) ==

== ENCOUNTER 2023-09-10 11:43 | Day surgery (SDC) | payer OTHER, SELFPAY ==
[~2023-09-10] VITALS: Ht 154.9 cm; Wt 86.6 kg
[~2023-09-10 11:43] MED LIST changes: +AJOV225I SC; +HYDROMORPHONE HCL 0.5 MG/ 0.5 ML SYRINGE IV PRN; +LIDOCAINE 2% 100MG/5ML SDV (FOR ANES.) As Ordered ONE; +LR 1,000 ML IV SCH; +METOCLOPRAMIDE INJ 10MG/2ML VIAL IV PRN; +MIDAZOLAM INJ 2MG/2ML VIAL As Ordered ONE; +NEXI40CA PO; +ONDANSETRON 4MG 2ML VIAL As Ordered ONE; +ONDANSETRON 4MG 2ML VIAL IV PRN; +ROCURONIUM BROMIDE 50MG/5ML VIAL As Ordered ONE; +fentaNYL 100 MCG/2 ML INJECTION As Ordered ONE; +fentaNYL 100 MCG/2 ML INJECTION IV PRN; +oxyCODONE 5MG TAB PO PRN; +propofoL 200 MG/20 ML VIAL As Ordered ONE
[2023-09-10] MEDS: LR 1,000 ML IV SCH (12:37)
[2023-09-10 13:22] LABS: HEMATOCRIT 38.6 % (36.0-47.0); HEMOGLOBIN 12.9 g/dl (12.0-15.5); MEAN CORPUSCULAR HEMOGLOBIN 29.5 pg (27.0-33.0); MEAN CORPUSCULAR HGB CONC 33.4 g/dl (32.0-36.5); MEAN CORPUSCULAR VOLUME 88.1 fl (80.0-96.0); PLATELET COUNT, AUTOMATED 358 10^3/uL (150-450); RED BLOOD COUNT 4.38 10^6/uL (4.00-5.40); WHITE BLOOD COUNT 7.2 10^3/uL (4.0-10.0)
[2023-09-10] MEDS ORDERED: ACETAMINOPHEN 1000MG 100ML IV BAG As Ordered ONE (13:41)
[2023-09-10] MEDS ORDERED: ONDANSETRON 4MG 2ML VIAL IV PRN (14:40)
[2023-09-10] MEDS ORDERED: LR 1,000 ML IV SCH ×2 (14:40→15:05)
[2023-09-10] MEDS ORDERED: fentaNYL 100 MCG/2 ML INJECTION IV PRN (14:40)
[2023-09-10] MEDS ORDERED: IBUP-1022 PO (14:43)
[2023-09-10] MEDS ORDERED: OXYC1TAB23 PO (14:44)
[2023-09-10] MEDS: oxyCODONE 5MG TAB PO PRN ×2 (15:02→15:39)
[2023-09-10] MEDS: HYDROMORPHONE HCL 0.5 MG/ 0.5 ML SYRINGE IV PRN ×2 (15:03→15:30)
[2023-09-10] MEDS ORDERED: PERCOCET 5MG/325MG TAB PO PRN (15:05)
[2023-09-10 16:46] VITALS: BP 129/74; TEMP 98; O2SAT 99
== END 2023-09-10 17:02 | disposition home or self-care (01) ==
LOC: M SDC 11:43
PROVIDERS: ATTEND Specialist
DX: N83.209 Unspecified ovarian cyst, unspecified side (principal); R10.2 Pelvic and perineal pain; G43.909 Migraine, unspecified, not intractable, without status migrainosus; R94.31 Abnormal electrocardiogram [ECG] [EKG]; Z79.899 Other long term (current) drug therapy; Z88.1 Allergy status to other antibiotic agents; Z88.8 Allergy status to other drugs, medicaments and biological substances; Z91.040 Latex allergy status; Z87.891 Personal history of nicotine dependence; K58.8 Other irritable bowel syndrome; K21.9 Gastro-esophageal reflux disease without esophagitis
CPT/HCPCS: 36415; 58661; 85027; 88305; J0131; J0665; J1100; J1170; J2250; J2405; J3010; S2900

== ENCOUNTER → 2023-10-24 | Outpatient (REF) | payer OTHER, BC ==
[~2023-10-24] MED LIST changes: -HYDROMORPHONE HCL 0.5 MG/ 0.5 ML SYRINGE IV PRN; +IBUP-1022 PO; -LIDOCAINE 2% 100MG/5ML SDV (FOR ANES.) As Ordered ONE; -LR 1,000 ML IV SCH; -METOCLOPRAMIDE INJ 10MG/2ML VIAL IV PRN; -MIDAZOLAM INJ 2MG/2ML VIAL As Ordered ONE; -ONDANSETRON 4MG 2ML VIAL As Ordered ONE; -ONDANSETRON 4MG 2ML VIAL IV PRN; +OXYC1TAB23 PO; -ROCURONIUM BROMIDE 50MG/5ML VIAL As Ordered ONE; -fentaNYL 100 MCG/2 ML INJECTION As Ordered ONE; -fentaNYL 100 MCG/2 ML INJECTION IV PRN; -oxyCODONE 5MG TAB PO PRN; -propofoL 200 MG/20 ML VIAL As Ordered ONE
[2023-10-24 17:49] LABS: RSV AMPLIFICATION NEGATIVE (NEGATIVE)
== END ==
LOC: M LAB REF 16:17
PROVIDERS: ATTEND Physician Assistant
DX: J06.9 Acute upper respiratory infection, unspecified (principal); R05.9 Cough, unspecified; Z20.828 Contact with and (suspected) exposure to other viral communicable diseases